=== PATIENT | male | born 1940 | race Caucasian/White ===

== ENCOUNTER → 2016-04-29 | Outpatient (CLI) | payer OTHER ==
[~2016-04-29] MED LIST: CHONCAP PO; LOSA1TAB38 PO; LPT40 PO; MULTCAP7 PO; PLV75 PO; RANO500T PO; VITA100C4 PO; VITACAP26 PO
--- NOTE | 2016-04-29 15:58 | DIAGNOSTIC IMAGING REPORT ---
WHOLE-BODY NUCLEAR BONE SCAN CLINICAL HISTORY: Prostate cancer. COMPARISON STUDY: No priors. TECHNIQUE: Three hours following the IV administration of 27.5 mCi of technetium 99m MDP, whole body nuclear bone scan was performed in the anterior and posterior projections. FINDINGS: There is no abnormal osseous tracer deposition identified typical in appearance for bony metastatic disease. Typically degenerative uptake is identified in the shoulders, sternoclavicular joints, left hip, and ankles. Typically degenerative activity is also seen throughout the spine. There is expected excreted activity within the renal collecting system and bladder. IMPRESSION: 1. There is no abnormal tracer deposition identified typical in appearance for bony metastatic disease. 2. Foci of typically degenerative activity as above. Electronically signed by: Jose Dawn M.D. 04/29/2016 3:57 PM Dictated Date/Time: 04/29/2016 3:54 PM
== END | disposition home or self-care (01) ==
LOC: C.NUCL 12:05
PROVIDERS: ATTEND Urology
DX: C61 Malignant neoplasm of prostate (principal)

== ENCOUNTER → 2016-07-22 | Outpatient (CLI) | payer OTHER ==
[2016-07-22 09:39] LABS: CHOLESTEROL/HDL RATIO 2.1
== END | disposition home or self-care (01) ==
LOC: C.LAB 06:58
PROVIDERS: ATTEND Internal Medicine Cardiovascular Disease
DX: C61 Malignant neoplasm of prostate (principal); I25.10 Atherosclerotic heart disease of native coronary artery without angina pectoris

== ENCOUNTER → 2017-02-09 | Outpatient (CLI) | payer OTHER ==
[2017-02-09 10:15] LABS: CHOLESTEROL/HDL RATIO 2.3; PROSTATE SPECIFIC ANTIGEN 4.53 ng/ml (0.000-4.000)
== END | disposition home or self-care (01) ==
LOC: C.LAB 07:28
PROVIDERS: ATTEND Internal Medicine Cardiovascular Disease
DX: N47.1 Phimosis (principal); E78.00 Pure hypercholesterolemia, unspecified

== ENCOUNTER → 2017-09-22 | Outpatient (CLI) | payer OTHER | END | disposition home or self-care (01) | LOC: C.LABSPEC 17:33 | PROVIDERS: ATTEND Urology | DX: N39.41 Urge incontinence (principal); R35.1 Nocturia ==

== ENCOUNTER 2018-05-28 06:24 | Inpatient (IN) ==
--- NOTE | 2018-05-19 12:50 | PAT Medication Instructions ---
Medication Instructions Date of Service May 19, 2018 Home Medications ascorbic acid (vitamin C) [Vitamin 1 g PO QAM aspirin [Aspirin Low Dose] 81 mg PO QAM atorvastatin [Lipitor] 40 mg PO QAM clopidogrel [Plavix] 75 mg PO QAM zeelyluu-lxfut-mxk 149-hyal ac 1 tab PO QAM ibuprofen [Advil] 200 mg PO BID losartan 100 mg PO QAM ranolazine [Ranexa] 500 mg PO BID I caps [id number]-S8-Y-V-trgvij-jesywqq-min 1 tab PO QAM vitamin E 400 unit PO QAM Continue as directed clopidogrel [Plavix] 75 mg PO QAM (in order for spinal anesthesia, need to stop Plavix 7 days prior to surgery- please check with bookkeeping machine operator to see if this is okay) ASK your surgeon for instructions ibuprofen [Advil] 200 mg PO BID STOP taking 2 weeks before surgery (or as soon as possible if surgery is within 2 weeks) xjfprpzm-rhsnh-qkn 149-hyal ac 1 tab PO QAM I caps nwmR-G1-P-X-gvwull-mamasvp-min 1 tab PO QAM vitamin E 400 unit PO QAM DO NOT take the morning of surgery ascorbic acid (vitamin C) [Vitamin 1 g PO QAM losartan 100 mg PO QAM Take morning of surgery With a small sip of water, OTHERWISE NOTHING TO EAT OR DRINK AFTER MIDNIGHT: aspirin [Aspirin Low Dose] 81 mg PO QAM atorvastatin [Lipitor] 40 mg PO QAM ranolazine [Ranexa] 500 mg PO BID Take evening before surgery ranolazine [Ranexa] 500 mg PO BID Other Notes If you have any questions please call us at [phone] or [phone] or [phone] or [phone]
--- NOTE | 2018-05-19 14:11 | Anesthesiology Consultation ---
Date of Service May 19, 2018 Assessment & Plan (1) Encounter for pre-operative examination: - Cardio= 02/19/19= "stable from a CV standpoint.. excellent control of his blood pressure and lipid values." Patient was seen at this time prior to CTR. In regards to CTR "acceptable risk for surgery." Surgery was done without issue. F/U 6 months recommended. - Patient advised that plavix needs to be held 7 days prior to surgery in order for spinal anesthesia (he states he was already given the okay for this per prescriber). Chart Review Chart Review: Acceptable Risk for Surgery and Patient seen in Pre Admission T esting Teaching & Discussion Pre-Anesthesia Teaching/Discussion Notes: Instructed NPO after midnight before surgery,except medications with 15 cc of water. Medication instructions provided according to the PAT guidelines. History Surgery Operation Date: 05/28/18 08:50 Proposed Procedures p Left Total Hip Arthroplasty - Ousmane Orr MD Height/Weight Height: 5 ft 10 in Weight: 104.1 kg Allergies Allergy/AdvReac Type Severity Reaction Status Date / Time No Known Allergies Allergy Unverified 05/17/18 08:15 Medications Home Medications Medication Instructions Recorded Confirmed Last Taken ascorbic acid (vitamin C) [Vitamin 1 g PO QAM 05/17/18 05/17/18 Unknown C] aspirin [Aspirin Low Dose] 81 mg PO QAM 05/17/18 05/17/18 Unknown atorvastatin [Lipitor] 40 mg PO QAM 05/17/18 05/17/18 Unknown clopidogrel [Plavix] 75 mg PO QAM 05/17/18 05/17/18 Unknown kaagdrya-lzfqv-zed 149-hyal ac 1 tab PO QAM 05/17/18 05/17/18 Unknown [Glucos Chond Cplx Advanced] ibuprofen [Advil] 200 mg PO BID 05/17/18 05/17/18 Unknown losartan 100 mg PO QAM 05/17/18 05/17/18 Unknown ranolazine [Ranexa] 500 mg PO BID 05/17/18 05/17/18 Unknown jkvG-T9-L-N-cdjbyq-zsxexja-min 1 tab PO QAM 05/17/18 05/17/18 Unknown [ICaps] vitamin E 400 unit PO QAM 05/17/18 05/17/18 Unknown Past Medical History Medical History CAD (coronary artery disease) SEBASTIAN X 1 TO LCX (2015) Cancer PROSTATE S/P PROSTATECTOMY Hypercholesteremia PER CARDIO Hypertension Obesity Osteoarthritis Spinal stenosis Past Family History Family History Father Family history of diabetes mellitus Past Surgical History Surgical History History of cardiac cath SEBASTIAN X 1 TO LCX (2015) History of cataract surgery History of colonoscopy History of excision of pilonidal cyst History of herniorrhaphy B/L INGUINAL History of prostatectomy Hx of carpal tunnel repair B/L; LEFT REVISION Past Anesthesia History No Family Hx of Anesthesia Complications and Other "Cursing" upon anesthesia emergence B/L inguinal hernia repair. History of PONV No Motion Sickness Screening History of Motion Sickness: No Social History Smoking Status: Former smoker Do You Dip or Chew Tobacco: No Smoking End Date: QUIT 1976 Hx Alcohol Use: Yes Alcohol type: beer, wine and hard liquor alcohol intake frequency: a few times a week Hx Substance Use: No Exercise / Class Metabolic Activity III < 4 Walking/Shop/Light housework Review of Systems Patient denies chest pain, shortness of breath, reflux, cough, wheezing, palpitations. Physical Exam Vital Signs VITALS BP 118/64 P 76 TEMP 97.7 SP02 95%RA RESP 18 PHYSICAL Full neck and c-spine range of motion. Full TMJ range of motion. TMD 3 finger breaths Mallampati Score 3 Dentition: intact, several crowns "all over"; implant on lower side Lungs: clear throughout to auscultation Cardiac: regular rate and rhythm, no murmurs noted Spine: normal Carotid arteries: negative bruit Extremities: no edema Small oral opening Testing Electrocardiogram Date: 05/19/18 Findings: + NSR @ (71) Chest X-Ray Date: 05/19/18 Mild left basilar atelectasis. Mild cardiomegaly. Otherwise negative study. Stress Test Date: 09/26/15 Type: exercise Abnormal stress ECHO/EKG for ischemia at 81% MPHR. Stress induced WMA in anteroseptal wall consistent with ischemia. There is apical moderate HK. ST depression in inferior leads. No chest pain. 7 METS. Mild cLVH. No significant valvular disease. Subsequent cardiac cath/SEBASTIAN to pLCX done 09/27/15 Cardiac Catheterization Date: 09/27/15 Dominant: Right Left Main (% Stenosis): Proximal (40) LAD (% Stenosis): Ostial (80), Mid (100) D1 (% Stenosis): Ostial (90) Circumflex (% Stenosis): Proximal (70) OM1 (% Stenosis): Normal RCA (% Stenosis): Normal R PDA (% Stenosis): Ostial (50), Mid (80) Resolute 3x12mm SEBASTIAN Proximal LCx* Laboratory Results 05/19/18 14:36 05/19/18 14:36 Blood Type O Positive 05/19/18 14:36 Antibody Screen NEGATIVE 05/19/18 14:36 PT 10.3 Seconds (9.0-12.0) 05/19/18 14:36 INR 1.0 (0.9-1.1) 05/19/18 14:36 APTT 27.0 Seconds (21.0-31.0) 05/19/18 14:36
--- NOTE | 2018-05-19 14:51 | XRay Report ---
XR chest Pre-admission PA/Lat CLINICAL HISTORY: pat preoperative evaluation COMPARISON STUDY: No previous studies for comparison. FINDINGS: Mild cardia megaly. Mild tortuosity thoracic aorta. Lungs are considered clear. Mild left b asilar atelectasis. IMPRESSION: Mild left basilar atelectasis. Mild cardiomegaly. Otherwise negative study. The above report was generated using voice recognition software. It may contain grammatical, syntax or spelling errors. Electronically signed by: Mehran Ruelas M.D. 05/19/2018 2:50 PM
[2018-05-19 15:19] LABS: Basophils # (auto) 0.01 K/uL (0-0.2); Basophils % (auto) 0.2 %; Eosinophils # (auto) 0.33 K/uL (0-0.5); Eosinophils % (auto) 5.9 %; Hematocrit (blood only) 40.7 % (42-52); Hemoglobin 13.8 g/dL (14.0-18.0); Immature Granulocytes # (auto) 0.02 K/uL (0.00-0.02); Immature Granulocytes % (auto) 0.4 %; Lymphocytes # (auto) 1.13 K/uL (1.2-3.4); Lymphocytes % (auto) 20.3 %; Mean Corpuscular Hgb Conc 33.9 g/dL (32-36); Mean Corpuscular Volume 94.7 fL (80-100); Mean Platelet Volume 9.5 fL (7.4-10.4); Monocytes % (auto) 12.6 %; Neutrophils # (auto) 3.37 K/uL (1.4-6.5); Neutrophils % (auto) 60.6 %; Platelet Count 162 K/uL (130-400); RDW Coefficient of Variation 14.3 % (11.5-14.5); White Blood Count 5.56 K/uL (4.8-10.8)
[2018-05-19 15:42] LABS: BUN Creatinine Ratio 17.9 (10-20); Calcium 9.1 mg/dl (8.5-10.1); Creatinine Clr Calc Pharmacy 60.8 ml/min; Est GFR (African American) 66.1; Potassium 4.4 mmol/L (3.5-5.1); Prothrombin Time 10.3 Seconds (9.0-12.0)
--- NOTE | 2018-05-19 17:38 | History and Physical Report ---
DATE OF ADMISSION: 05/28/2018 CHIEF COMPLAINT: Left hip pain. HISTORY OF PRESENT ILLNESS: A 77-year-old gentleman who lives at [facility] with his , who presents for treatment of his left hip. He has got a several year history of increasing left hip pain and discomfort and has gradually gotten worse, particularly the past year. The more he walks, the more he limps. He described buttock pain and groin pain. When he first gets up, he really limps pretty badly and then gets a little bit better. He has difficulty putting his shoes and socks on. His walking tolerance is limited. He now elected to proceed with surgical treatment. The patient does have history of some spinal stenosis as well. PAST MEDICAL HISTORY: Include, 1. Coronary artery disease, status post cardiac stent, placed by Dr. Karthik martinez in 2016 without any residual sequelae on Plavix. 2. Hypertension. 3. Arthritis. 4. Spinal stenosis. 5. Prostate cancer, status post resection with some residual disease. PREVIOUS SURGERIES: Include: 1. Pilonidal cyst excision. 2. Double hernia. 3. Prostate removal in 1995. 4. Heart stent in 2016. ALLERGIES: None. CURRENT MEDICINES: 1. Advil 400 mg twice a day. 2. Losartan 100 mg. 3. Lipitor 40 mg. 4. Plavix 75 mg a day. 5. Ranexa 500 mg twice a day. 6. Vitamin C. 7. Vitamin 8. Glucosamine/chondroitin. 9. Aspirin. 10. ICaps. SOCIAL HISTORY: A 77-year-old male. He lives at [facility] with his . She has some slight dementia. He does not smoke. FAMILY HISTORY: Noncontributory. REVIEW OF SYSTEMS: Significant for coronary artery disease, status post stent placement. Denies any current chest pain or shortness of breath. No evidence of DVT or PE. No bleeding problems. PHYSICAL EXAMINATION: GENERAL: Reveals a healthy pleasant elderly male. Looks to be in good health. HEENT: Benign. NECK: Supple. No lymphadenopathy. LUNGS: Clear to auscultation. HEART: Regular rate and rhythm. ABDOMEN: Soft, nontender, nondistended. EXTREMITIES: Grossly neurovascularly intact except as follows. Examination of left hip reveals the patient walks with a significantly antalgic gait. He is about 0.5 cm short on the left side compared to right. He has a pretty stiff hip with internal rotation to -10. External rotation at 30 degrees. Does cause pain with internal rotation. Negative straight leg raise. X-RAYS: X-rays of the left hip reviewed, shows advanced left hip DJD. He has got complete loss of his joint space. He has got cystic changes on both sides of the joint. He has got old flattening of the femoral head. X-rays of lumbar spine reveal some diffuse lumbar spondylosis throughout the entire spine. He has got fairly straight spine with syndesmophytes. ASSESSMENT: A 77-year-old male with history of coronary artery disease and stent placement with advanced left hip degenerative joint disease. He does have significant spinal stenosis which is pretty extensive. It does seem like his hip is a major debilitating part of his pain pattern. PLAN: We talked about treatment options. He would like to have his left hip replaced. I did tell him he is likely to have some residual symptoms from his spinal stenosis. He is fully aware of that. We will take him to the Operating Room and do a left total hip replacement. The risks and benefits of this procedure were explained to the patient including but not limited to DVT, PE, , infection, neurological injury, vascular injury, bleeding problem, pain, limited range of motion, stiffness, failure to relieve symptoms, incomplete relief of symptoms, need for further surgery in future, fracture, leg length inequality, nerve palsy, etc. The patient understands and desires to proceed. Informed consent was obtained. We did talk about stopping his Plavix a week beforehand. We will place him on his Plavix immediately postop. As far as discharge plans, he will likely go to the [facility]. We may have Dr. Angeles follow him in the hospital as well. DOUG
[~2018-05-28 06:24] MED LIST changes: +ACETAMINOPHEN 500 MG TAB PO SCH; +CEFAZOLIN 2000MG 2,000 MG/15 ML SYR IV SCH; -CHONCAP PO; +FAMOTIDINE 20 MG TAB PO SCH; +GABAPENTIN 300 MG PO SCH; -LOSA1TAB38 PO; -LPT40 PO; +LR 500ML BOLUS, THEN 15ML/HR IV SCH; +LR 60ML/HR IV SCH; +METOCLOPRAMIDE HCL 10 MG TABLET PO SCH; -MULTCAP7 PO; -PLV75 PO; -RANO500T PO; +TRANEXAMIC ACID 1,000 MG **IV Pre-op IV SCH; -VITA100C4 PO; -VITACAP26 PO
[2018-05-28] MEDS ORDERED: BUPIVACAINE 0.5 % 5 MG/1 ML PF 10ML VIAL ONE (06:40)
--- NOTE | 2018-05-28 06:49 | History & Physical Bridge Note ---
Date of Service May 28, 2018 History & Physical Bridge Note I have examined the patient, reviewed the History & Physical and in the interval since the performance of the History & Physical I have noted the following changes of clinical significance: no changes noted
[2018-05-28] MEDS ORDERED: fentaNYL citrate 100 MCG/2 ML VIAL ONE (08:14)
[2018-05-28] MEDS ORDERED: PROPOFOL IV EMULSION 10 MG/ML 20 ML VIAL IV ONE ×2 (08:14→11:18)
[2018-05-28] MEDS ORDERED: LIDOCAINE HCL 2% 2 ML VIAL/AMP(20MG/ML) INFIL ONE (08:14)
[2018-05-28] MEDS ORDERED: MoRPHine SULFATE PF 1 MG/ML 10 ML AMP/VIAL ONE (08:14)
[2018-05-28] MEDS ORDERED: MIDAZOLAM HCL 1 MG/ML 2ML VIAL ONE (08:14)
[2018-05-28] MEDS ORDERED: BACITRACIN INJ 50,000 UNIT VIAL ONE (08:45)
[2018-05-28] MEDS ORDERED: BUPIVACAINE/EPINEPHRINE 0.5% MPF 1:200,000 30 ML VIAL ONE (08:45)
[2018-05-28] MEDS ORDERED: ONDANSETRON INJ 2 MG/ML 2 ML VIAL ONE (09:14)
[2018-05-28] MEDS ORDERED: PHENYLEPHRINE 100MCG/ML 5ML SYR ONE (09:14)
[2018-05-28] MEDS ORDERED: VASOPRESSIN 20 UNIT/ML VIAL ONE (09:46)
--- NOTE | 2018-05-28 10:40 | Post Operative Brief Note ---
Immediate Post Op Note v1 Date of Surgery May 28, 2018 Pre & Post Diagnosis Operation Date: 05/28/18 08:50 Pre-Op Diagnosis: Advanced Left Hip Degenerative Joint Disease Post-Op Diagnosis: Advanced Left Hip Degenerative Joint Disease Procedure Operation Date: 05/28/18 08:50 Actual Procedures p Left Total Hip Arthroplasty(Left) - Ousmane Orr MD Surgeon Ousmane Orr MD [employer] Specialist Terra, PAC Estimated Blood Loss 300 Findings Consistent with Post-Op Diagnosis Fluids 1300 cc Specimens Left Femoral Head Drains Peña Catheter Anesthesia Type Spinal MAC Complications none Disposition Accompanied Patient To Recovery: Yes Disposition: Recovery Room
--- NOTE | 2018-05-28 11:10 | XRay Report ---
SINGLE VIEW PELVIS; SINGLE VIEW LEFT HIP CLINICAL HISTORY: Postoperative examination. FINDINGS: An AP portable view of the hips and pelvis with a crosstable lateral portable view of the l eft hip are obtained. A bipolar left hip arthroplasty is in near-anatomic alignment. At least 2 magalys ical lag screws transfix the acetabular cup. No acute fracture is identified. There are expected post operative changes overlying the left hip including skin clips, subcutaneous gas, and soft tissue swel ling. Arthritic change is noted in the right hip. There are surgical clips throughout the pelvis. A F oley catheter is in place. IMPRESSION: Expected postoperative findings status post left hip arthroplasty. No acute fracture is s een. Electronically signed by: Jose Dawn M.D. 05/28/2018 11:08 AM
[2018-05-28] MEDS ORDERED: PROMETHAZINE HCL 25 MG in SODIUM CHLORIDE 0.9% 50 ML IV PRN (11:13)
[2018-05-28] MEDS ORDERED: DiphenhydrAMINE HCL 50 MG/ML VIAL IV PRN (11:13)
[2018-05-28] MEDS ORDERED: NALOXONE HCL 0.08 MG in SYRINGE 1.8 ML IV PRN (11:13)
[2018-05-28] MEDS ORDERED: MoRPHine SULFATE PF 1 MG/ML 10 ML AMP/VIAL INT SPINAL ONE (11:13)
[2018-05-28] MEDS ORDERED: NALOXONE HCL 1 MG in SODIUM CHLORIDE 0.9% 1000ML 1,000 ML IV PRN (11:13)
[2018-05-28] MEDS ORDERED: NALBUPHINE HCL INJ 10 MG/ML AMP IV PRN (11:13)
[2018-05-28] MEDS ORDERED: NALOXONE HCL 0.4 MG/1 ML VIAL/CARP IV PRN ×2 (11:13→12:13)
[2018-05-28] MEDS ORDERED: LACTATED RINGER'S 500 ML IV PRN (11:13)
[2018-05-28] MEDS ORDERED: ePHEDrine sulfate 50 MG/ML AMP IV PRN (11:13)
[2018-05-28] MEDS ORDERED: ONDANSETRON INJ 2 MG/ML 2 ML VIAL IV PRN (11:13)
[2018-05-28] MEDS ORDERED: NO NARCOTICS OR SEDATIVES SCH (11:15)
[2018-05-28] MEDS ORDERED: SODIUM CHLORIDE 0.9% 1000ML 1,000 ML IV SCH (11:15)
[2018-05-28] MEDS ORDERED: DC INTRASPINAL MORPHINE SCH (11:15)
--- NOTE | 2018-05-28 11:15 | Anesthesiology Progress Note ---
Date of Service May 28, 2018 Anesthesia Post Procedure Vital Signs Vital Signs: Temp Pulse Pulse Resp BP Pulse Ox 05/28/18 11:10 69 20 120/60 96 05/28/18 11:00 66 19 111/65 95 05/28/18 10:50 73 19 114/68 98 05/28/18 10:41 36.1 C L 72 16 110/52 L 98 05/28/18 06:53 36.7 C 86 18 151/74 H 95 Pain Intensity Left Hip: Pain Intensity: 0 Notes Mental Status: alert / awake / arousable Patient Amnestic to Procedure: Yes Nausea / Vomiting: adequately controlled Pain: adequately controlled Airway Patency, RR, SpO2: stable & adequate BP & HR: stable & adequate Hydration State: stable & adequate Neuraxial Anesthesia: was administered and sensory block is resolving Anesthetic Complications: no major complications apparent
[2018-05-28] MEDS ORDERED: BISACODYL 10 MG SUPP PR PRN (12:13)
[2018-05-28] MEDS ORDERED: TAMSULOSIN HCL 0.4 MG CAP PO PRN (12:13)
[2018-05-28] MEDS ORDERED: MAGNESIUM HYDROXIDE SUSP 30 ML UDC PO PRN (12:13)
[2018-05-28] MEDS ORDERED: METOCLOPRAMIDE HCL INJ 5 MG/ML 2 ML VIAL IV PRN (12:13)
[2018-05-28] MEDS ORDERED: ALUMINUM/MAGNESIUM SUSP 30 ML UDC PO PRN (12:13)
[2018-05-28] MEDS: ACETAMINOPHEN 500 MG TAB PO SCH ×2 (14:10→21:41)
[2018-05-28] MEDS: KETOROLAC TROMETHAMINE 15 MG/ML VIAL IV SCH ×2 (14:10→21:40)
[2018-05-28] MEDS: SODIUM CHLORIDE 0.9% 1000ML 1,000 ML IV SCH ×2 (14:14→22:15)
--- NOTE | 2018-05-28 14:28 | Operative Report ---
DATE OF OPERATION: 05/28/2018 SURGEON: Ousmane Orr MD [employer] RANGER: HOANG Kauffman PREOPERATIVE DIAGNOSIS: Left hip degenerative joint disease. POSTOPERATIVE DIAGNOSIS: Left hip degenerative joint disease. PROCEDURE PERFORMED: Left uncemented ceramic on highly cross-linked polyethylene total hip arthroplasty. COMPLICATIONS: None. ESTIMATED BLOOD LOSS: 300 mL. FLUID REPLACEMENT: 1300 mL crystalloid fluid replacement. ANESTHESIA: Spinal. DRAINS: None. SPECIMENS: Left femoral head sent for pathology. OPERATIVE INDICATIONS: The patient is a 77-year-old gentleman who has had a several-year history of gradually increasing left hip pain and discomfort. He describes it gotten significantly worse over the past year to the point where he is limping all the time. He had failed conservative treatment. He elected to proceed with total hip arthroplasty. OPERATIVE FINDINGS: Operative findings revealed advanced left hip DJD. He had fairly extensive grade 4 changes in the femoral head and acetabulum. Pretty significant anterior osteophytes which caused an external rotation contracture of his hip. OPERATIVE IMPLANTS: Operative implants consisted of: 1. Biomet G7 size 54 mm acetabular shell. 2. 6.5 cancellous acetabular screws, 1 at 35 mm in length and 1 at 25 mm in length. 3. An apex hole eliminator. 4. Highly cross-linked polyethylene liner with 54 mm outer diameter, 36 mm inner diameter with a tang placed inferior and posterior. 5. DePuy Corail size 13 KLA femoral stem. 6. A +5/36 mm ceramic articular ball. OPERATIVE PROCEDURE: The patient was taken to the operating room, identified and placed on operative table in supine position. All contact areas were appropriately padded. IV antibiotics were provided by anesthesia team. A spinal anesthetic had been implemented in the holding area. Peña catheter was placed in sterile fashion. The patient was then placed in the right lateral decubitus position. An axillary roll was placed. Stlberg hip positioner was used for positioning. All contact areas were meticulously padded. Left hip and leg were then prepped and draped in usual sterile fashion. A posterolateral approach of the left hip was then performed through a curvilinear incision centered over the greater trochanter. Sharp dissection was carried through subcutaneous tissue down to the level of the IT band and gluteal fascia. The IT band and gluteal fascia was incised longitudinally in line with skin incision. The underlying greater trochanteric bursa was excised. The piriformis and external rotators were tagged and taken off the posterior aspect of the hip joint capsule. Great care was taken throughout the procedure to protect the sciatic nerve at all times. Posterior capsulotomy was then performed leaving a flap for later repair. Hip was internally rotated and dislocated. Femoral neck osteotomy cut was made with the final cut about 5 mm above the lesser trochanter. Femoral head was removed and sent for pathology. The femur was retracted anteriorly. Attention was then drawn to the acetabulum. The acetabular labrum was excised. The pulvinar fat was excised. He did have quite a bit of fat in the posterior aspect of his hip. Sequential reaming of the acetabulum was then performed beginning with a size 49 and progressing up to a 53 reamer. A 54 mm Biomet G7 acetabular shell was then placed in about 40 degrees of lateral opening and 20 degrees of anteversion. It was fixed with two 6.5 cancellous acetabular screws. Some anterior osteophytes removed. A trial liner was placed. Attention was then drawn to the femur. The proximal femur was entered with a cookie cutter followed by canal finder. I broached beginning with a size 8 and progressing up to 13. We got excellent fit at 13. I then trialed the hip. The +5 articular ball provided full stability and full extension and external rotation, flexion to 90 degrees, internal rotation to about [address] a tang inferior and posterior to maximize stability in flexion. Attention was then drawn toward placement of the permanent components. All trial components were removed. An apex hole eliminator was placed. Highly cross-linked polyethylene liner with a tang placed inferior and posterior was placed. A Corail size 13 KLA femoral stem was impacted in position. A +5/36 mm ceramic articular ball was placed. Hip was located and once again found to be stable. Attention was then drawn toward closing. The posterior capsule and external rotators were repaired through drill holes in the posterior trochanter with #2 Ti-Cron suture. The IT band and gluteal fascia were then closed in #1 PDS suture in running fashion. The subcutaneous tissue was then closed in 2 layers with the deep layer #1 Vicryl suture and subcutaneous tissues with 2-0 Dexon suture in a buried interrupted fashion. The skin was closed with skin mago. Leg was then cleaned, dried and a sterile dressing of Xeroform, 4 x 4s, sterile ABD pad and foam tape was applied. The patient then transferred to the recovery room in stable condition. The patient tolerated the procedure well with no complications. All needle and sponge counts were correct at the end of the operation. I attest to the content of the Intraoperative Record and any orders documented therein. Any exception s are noted below.
--- NOTE | 2018-05-28 16:02 | Progress Note ---
DATE: 05/28/2018 SUBJECTIVE: A 77-year-old gentleman postop from a left hip replacement. He is doing well. Not had any pain yet. No chest pain or shortness of breath. Not feeling dizzy or lightheaded. OBJECTIVE: VITAL SIGNS: Temperature is 36.6. Vital signs stable. GENERAL: Physical examination shows a pleasant elderly male. He is sitting up in bed, looks awake, alert and appropriate. He looks comfortable. LUNGS: Clear to auscultation. HEART: Regular rate and rhythm. ABDOMEN: Soft, nontender, nondistended. EXTREMITIES: Grossly neurovascularly intact except as follows: Examination of the left leg reveals the leg to be well aligned. Dressing is clean, dry and intact. Thigh is soft and supple. His hip is located. He is neurologically intact. He can dorsiflex and plantarflex his foot appropriately. X-RAYS: X-rays of the left hip from recovery room reviewed. It shows left cemented posterior stabilized total knee arthroplasty. Components looked to be in good position. No signs of problems. ASSESSMENT: A 77-year-old gentleman postop from a left hip replacement, doing well. His pain is controlled. His hip is located. He is neurologically intact. PLAN: 1. DVT prophylaxis including thigh-high TEDs, SCDs, and we will put him back on his Plavix. He is also taking a baby aspirin once a day. 2. PT/OT. He can weightbear as tolerated. Left total hip protocol. 3. Pain control, doing well with current pain regimen. 4. IV antibiotics x24 hours. 5. Disposition: He is planning to be discharged to home and do some home health once adequately recovered.
[2018-05-28] MEDS: FERROUS GLUCONATE 324 MG TAB PO SCH (17:22)
[2018-05-28] MEDS: CEFAZOLIN 2000MG 2,000 MG/15 ML SYR IV SCH (17:22)
[2018-05-28] MEDS: ASCORBIC ACID 500 MG TAB PO SCH (17:22)
[2018-05-28] MEDS ORDERED: TRANEXAMIC ACID 1,000 MG in 0.9 % SODIUM CHLORIDE 100 ML IV SCH (17:30)
[2018-05-28] MEDS: SENNA 8.6 MG TAB PO SCH (21:41)
[2018-05-28] MEDS: RANOLAZINE 500 MG ER TAB PO SCH (21:41)
[2018-05-28] MEDS: DOCUSATE SODIUM 100 MG CAP PO SCH (21:41)
[2018-05-29] MEDS: SODIUM CHLORIDE 0.9% 1000ML 1,000 ML IV SCH (00:06)
[2018-05-29] MEDS: KETOROLAC TROMETHAMINE 15 MG/ML VIAL IV SCH ×4 (01:55→20:18)
[2018-05-29] MEDS: CEFAZOLIN 2000MG 2,000 MG/15 ML SYR IV SCH (01:55)
[2018-05-29] MEDS ORDERED: HYDROmorphone INJ 0.5 MG/0.5 ML SYR IV PRN (05:14)
[2018-05-29] MEDS ORDERED: ONDANSETRON INJ 2 MG/ML 2 ML VIAL IV PRN (05:14)
[2018-05-29] MEDS ORDERED: NALOXONE HCL 0.4 MG/1 ML VIAL/CARP IV PRN (05:14)
[2018-05-29] MEDS ORDERED: TRAMADOL HCL 50 MG TABLET PO PRN (05:14)
[2018-05-29] MEDS: ACETAMINOPHEN 500 MG TAB PO SCH ×3 (06:26→20:17)
[2018-05-29 06:35] LABS: Basophils # (auto) 0.02 K/uL (0-0.2); Basophils % (auto) 0.3 %; Eosinophils # (auto) 0.26 K/uL (0-0.5); Eosinophils % (auto) 4.1 %; Hematocrit (blood only) 35.2 % (42-52); Hemoglobin 12.1 g/dL (14.0-18.0); Immature Granulocytes # (auto) 0.01 K/uL (0.00-0.02); Immature Granulocytes % (auto) 0.2 %; Lymphocytes # (auto) 0.89 K/uL (1.2-3.4); Lymphocytes % (auto) 14.1 %; Mean Corpuscular Hgb Conc 34.4 g/dL (32-36); Mean Corpuscular Volume 94.4 fL (80-100); Mean Platelet Volume 9.5 fL (7.4-10.4); Monocytes # (auto) 0.59 K/uL (0.11-0.59); Monocytes % (auto) 9.3 %; Neutrophils # (auto) 4.55 K/uL (1.4-6.5); Platelet Count 118 K/uL (130-400); RDW Coefficient of Variation 13.9 % (11.5-14.5); Red Blood Count 3.73 M/uL (4.7-6.1); White Blood Count 6.32 K/uL (4.8-10.8)
[2018-05-29 06:37] LABS: BUN Creatinine Ratio 17.2 (10-20); Creatinine Clr Calc Pharmacy 57.1 ml/min; Est GFR (African American) 61.7; Est GFR (Non-African American) 53.3; Potassium 4.5 mmol/L (3.5-5.1)
[2018-05-29] MEDS ORDERED: NON-FORMULARY MEDICATION (Ascorbic Acid (Vitamin C) [Vitamin C] 1 GM) PO SCH (09:00)
[2018-05-29] MEDS: CLOPIDOGREL BISULFATE 75 MG TAB PO SCH (09:01)
[2018-05-29] MEDS: DOCUSATE SODIUM 100 MG CAP PO SCH ×2 (09:01→20:16)
[2018-05-29] MEDS: TOCOPHERYL, DL-ALPHA 400 UNITS CAP PO SCH (09:01)
[2018-05-29] MEDS: ASCORBIC ACID 500 MG TAB PO SCH ×2 (09:01→18:07)
[2018-05-29] MEDS: FERROUS GLUCONATE 324 MG TAB PO SCH ×2 (09:03→18:07)
[2018-05-29] MEDS: ASPIRIN 81 MG ECTAB PO SCH (09:03)
[2018-05-29] MEDS: MULTIVITAMIN TAB PO SCH (09:03)
[2018-05-29] MEDS: ATORVASTATIN 40 MG TAB PO SCH (09:03)
[2018-05-29] MEDS: RANOLAZINE 500 MG ER TAB PO SCH ×2 (09:04→20:17)
[2018-05-29] MEDS: LOSARTAN POTASSIUM 50 MG TAB PO SCH (09:04)
--- NOTE | 2018-05-29 09:13 | Progress Note ---
DATE: 05/29/2018 SUBJECTIVE: A 77-year-old gentleman postop day 1 from a left hip replacement. He is doing pretty well. Really not much pain at while lying in bed. Some pain with walking and trying to lift his leg. No chest pain or shortness of breath. Not feeling dizzy or lightheaded. OBJECTIVE: VITAL SIGNS: Temperature 37.0. Vital signs stable. GENERAL: Physical examination shows a pleasant elderly male. He is lying in bed, looks pretty comfortable. EXTREMITIES: Examination of the left hip and leg reveals the leg lengths to be equal. Dressing is clean, dry and intact. Thigh is soft and supple. He is neurologically intact. LABORATORY DATA: Hemoglobin is 12.1. Hematocrit 35.2. Electrolytes are stable. ASSESSMENT: A 77-year-old gentleman postop day 1 from a left hip replacement, doing well. His pain is controlled. Hip is located. He is neurologically intact. PLAN: 1. DVT prophylaxis including thigh-high TEDs, SCDs, and he is back on baby aspirin a day as well as his Plavix. 2. PT/OT. Weight bear as tolerated. Left total hip protocol. 3. Pain control, doing pretty well with current pain regimen. 4. Disposition: He is planning to be discharged to home with some home health once adequately recovered.
--- NOTE | 2018-05-29 09:52 | Anesthesiology Progress Note ---
Date of Service May 29, 2018 Anesthesia Post Procedure Vital Signs Vital Signs: Temp Pulse Pulse Resp BP Pulse Ox Pulse Ox 05/29/18 07:50 37.0 C 66 18 103/57 L 93 05/29/18 04:19 16 98 05/29/18 03:11 36.9 C 69 18 103/63 92 05/29/18 02:00 17 97 05/29/18 01:00 16 94 05/29/18 00:00 18 98 05/28/18 23:33 36.5 C 69 16 128/66 92 05/28/18 23:00 18 93 05/28/18 22:35 94 05/28/18 22:00 18 100 05/28/18 21:00 14 99 05/28/18 20:00 16 100 05/28/18 19:30 36.5 C 68 16 144/80 H 100 05/28/18 19:00 18 100 05/28/18 18:00 14 96 05/28/18 17:00 16 100 05/28/18 16:00 16 99 05/28/18 15:15 99 05/28/18 15:00 18 99 05/28/18 14:55 36.3 C L 65 18 147/75 H 99 05/28/18 14:06 36.4 C L 81 18 149/79 H 97 05/28/18 14:00 18 98 05/28/18 13:00 18 97 05/28/18 12:56 36.4 C L 61 18 149/83 H 97 05/28/18 12:30 36.4 C L 62 16 149/79 H 97 05/28/18 12:00 16 97 97 05/28/18 11:30 67 21 125/67 95 05/28/18 11:20 36.3 C L 64 18 132/63 95 05/28/18 11:10 69 20 120/60 96 05/28/18 11:00 66 19 111/65 95 05/28/18 10:50 73 19 114/68 98 05/28/18 10:41 36.1 C L 72 16 110/52 L 98 Pain Intensity Left Hip: Pain Intensity: 0 Notes Mental Status: alert / awake / arousable and participated in evaluation Patient Amnestic to Procedure: Yes Nausea / Vomiting: adequately controlled Pain: adequately controlled Airway Patency, RR, SpO2: stable & adequate BP & HR: stable & adequate Hydration State: stable & adequate Neuraxial Anesthesia: was administered and sensory block resolved Anesthetic Complications: no major complications apparent and Pt Satisfied with anesthetic care
[2018-05-29] MEDS: SENNA 8.6 MG TAB PO SCH (20:18)
[2018-05-30] MEDS: KETOROLAC TROMETHAMINE 15 MG/ML VIAL IV SCH ×2 (02:05→08:38)
[2018-05-30] MEDS: ACETAMINOPHEN 500 MG TAB PO SCH (05:57)
[2018-05-30] MEDS: LOSARTAN POTASSIUM 50 MG TAB PO SCH (08:37)
[2018-05-30] MEDS: ASCORBIC ACID 500 MG TAB PO SCH (08:37)
[2018-05-30] MEDS: ASPIRIN 81 MG ECTAB PO SCH (08:37)
[2018-05-30] MEDS: TOCOPHERYL, DL-ALPHA 400 UNITS CAP PO SCH (08:37)
[2018-05-30] MEDS: RANOLAZINE 500 MG ER TAB PO SCH (08:37)
[2018-05-30] MEDS: CLOPIDOGREL BISULFATE 75 MG TAB PO SCH (08:38)
[2018-05-30] MEDS: DOCUSATE SODIUM 100 MG CAP PO SCH (08:38)
[2018-05-30] MEDS: ATORVASTATIN 40 MG TAB PO SCH (08:38)
[2018-05-30] MEDS: MULTIVITAMIN TAB PO SCH (08:38)
[2018-05-30] MEDS: FERROUS GLUCONATE 324 MG TAB PO SCH (08:38)
--- NOTE | 2018-05-30 13:12 | Progress Note ---
DATE: 05/30/2018 SUBJECTIVE: A 77-year-old gentleman postop day 2 from a left hip replacement. He is doing well. Getting around well. No chest pain or shortness of breath. Feels ready to go home. OBJECTIVE: VITAL SIGNS: Temperature 37.4. Vital signs stable. PHYSICAL EXAMINATION: GENERAL: Shows a pleasant elderly male. He is sitting up in his bedside chair eating breakfast. He looks comfortable. EXTREMITIES: Examination of left leg reveals the dressing to be clean, dry and intact. Thigh is soft and supple. Hip is located. He is neurologically intact. ASSESSMENT: A 77-year-old gentleman postoperative day 2 from left hip replacement, doing well. Pain is controlled. PLAN: 1. DVT prophylaxis including thigh-high TEDs, SCDs, and he is back on his Plavix as well as one baby aspirin a day. 2. PT/OT. Weight bear as tolerated. Left total hip protocol. 3. Pain control, doing well with current pain regimen. 4. Disposition: Plan to discharge to home with some home health later today.
--- NOTE | 2018-05-31 17:11 | Discharge Summary ---
ADMITTING PHYSICIAN AND SURGEON: Dr. Ousmane Orr. ADMITTING DIAGNOSIS: Left hip degenerative joint disease. SURGERY PERFORMED: Left total hip arthroplasty. SECONDARY DIAGNOSES: Coronary artery disease, hypertension, arthritis, spinal stenosis, prostate cancer. CONSULTS: None obtained. HISTORY AND PHYSICAL EXAMINATION: Well documented in the patient's chart. HOSPITAL COURSE: The patient was admitted on 05/28/2018 underwent total hip arthroplasty, tolerated the procedure well. There were no complications. He was transferred to the PACU postoperatively and later to the orthopedic floor for further care. He was given Ancef for antibiotic prophylaxis, COLLIN stockings, SCDs, aspirin and Plavix for DVT prophylaxis. Hemoglobin, hematocrit and vital signs were monitored during his hospital stay and remained stable. He did not require blood transfusions. There were no complications. By postoperative day 2 he was tolerating a regular diet, pain was controlled with oral pain medicine. He was participating in physical therapy. Postop day 2 he was discharged home, set up with home health services, given printed discharge instructions including new prescriptions for extra strength Tylenol and tramadol. Continue his home medicines. Continue physical therapies, weightbearing as tolerated, COLLIN stockings, total hip precautions. Follow up in approximately 2 weeks postoperatively or sooner if any problems or concerns.
== END 2018-05-30 11:11 | disposition home health service (06) | DRG 470 ==
LOC: ASU 06:24 → 3E 10:43

== ENCOUNTER 2021-01-05 07:52 | Inpatient (IN) ==
[2021-01-05] MEDS ORDERED: ALBUTEROL 0.083% NEBU SOLN 3 ML VIAL NEB STA (07:57)
--- NOTE | 2021-01-05 08:02 | Emergency Department Note ---
Impression & Plan NSTEMI (non-ST elevated myocardial infarction), CAD (coronary artery disease), Shortness of breath ED Provider Note NAME: ZENAIDA LEZAMA AGE: 80 SEX: M : 1940 ARRIVES VIA: Ambulance INFORMANT: Patient ED PROVIDER(S): Papi Serrano DO CHIEF COMPLAINT: Shortness of breath HPI: Patient is an 80-year-old male who presents ER for shortness of breath. This has been present for the past 5 weeks. Significant worsened over the past 24hours. Patient denies any headache or change in vision. He admits to chest tightness which has been present since 4 AM. Denies any belly pain, nausea, vomiting, or diarrhea. No dysuria, urgency, or frequency. The chest tightness does not radiate anywhere else. Patient does have a history of CAD and hypertension with his last stent in 2015 and left circumflex. ROS: See above HPI for pertinent positives & negatives. A total of 10 systems reviewed and were otherwise negative. PAST MEDICAL HISTORY:See Below PAST SURGICAL HISTORY:See Below FAMILY HISTORY:See Below SOCIAL HISTORY:See Below HOME MEDICATIONS:See Below ALLERGIES:See Below VITALS:See Below PHYSICAL EXAMINATION: GENERAL: Sitting up in bed, alert, well appearing, well nourished, no distress, non-toxic EYE EXAM: normal conjunctiva. OROPHARYNX: no exudate, no erythema, lips, buccal mucosa, and tongue normal and mucous membranes are moist NECK: supple, no nuchal rigidity, no adenopathy, non-tender LUNGS: Diffuse wheezing bilaterally. Normal chest wall mechanics HEART: no murmurs, S1 normal and S2 normal ABDOMEN: abdomen soft, non-tender, normo-active bowel sounds, no masses, no rebound or guarding. UPPER EXTREMITIES: upper extremities are grossly normal. LOWER EXTREMITIES: No pitting edema. NEURO EXAM: Normal sensorium, cranial nerves II-XII grossly intact, normal speech, no gross weakness of arms, no gross weakness of legs. MEDICAL DECISION MAKING: Patient is an 80-year-old male who presents ER for above-stated complaint. IV was established blood work was obtained. Vitals show that he was slightly hypo xic. He was tachycardic and had diffuse wheezing. He is complaining of shortness of breath which progressed over several weeks as well as chest pain after shortness of breath worsened last night around 4 AM. IV was established blood work was obtained. With the diffuse wheezing he was given a neb treatment and his chest pain abated and shortness of breath improved significantly. He was consequently given steroids. He only smoked for 2 years and there is no diagnosis of COPD but with the wheezing and the improvement but this was reasonable at the time. Chest x-ray resulted and showed cephalization. Labs show no significant leukocytosis or anemia. BMP was unremarkable. Troponin was positive at 1.8. Lipase was normal. Covid was negative. EKG did show new septal Q waves with some ST wave changes. This is new in comparison to the previous. He was given aspirin. Initially concerned that this was a PE with the worsening shortness of breath over a protracted period time. Discussed with Dr. Garcia he agreed with a heparin drip and bolus after we were able to review outpatient IR procedure for a rectus sheath hematoma. He reviewed the EKGs and as the patient was pain-free recommended medical management. If the pain returns will need to go to the [facility] as long as CT angio was negative. Patient was given heparin drip and bolus. Was taken to CT and CT angios showed no PEs. Patient was discussed with initially the [facility] team per care managers. [facility] Nursing notes reviewed. Limited review of prior medical records performed Vital Signs: reviewed and remarkable for no significant abnormalities Differential diagnosis: Reactive airway disease, pneumonia, pneumothorax, COPD, CHF, infections, cardiac ischemia, pulmonary embolism, musculoskeletal, gastrointestinal, as well as other pathologies. ER treatment provided: See below Diagnostics interpreted by me: ECG: Sinus tachycardia rate of 121 Poor baseline PVCs Septal Q waves QTC [address] wave changes in the septal leads EKG #2 Sinus rhythm rate of 115 Normal axis Poor baseline Septal Q waves QTC 439 T wave flattening in the lateral leads Nonspecific ST changes in the high lateral leads Cardiac Monitoring: An order was placed for continuous cardiac monitoring. The m onitor shows a rate of 110 with sinus rhythm. Laboratory studies: As stated above and show below. Imaging studies: Chest x-ray shows cephalization and pleural effusion CT angio shows no PEs but cephalization with pleural effusions Consultation(s): Discussed with Jatin from [facility] service Discussed with Shlomo Calvo from not any cardiology as discussed above Discussed with Bucky Silva for admission from not any hospital service Procedures: none Critical Care: I have personally spent 45 minutes of critical care time in the direct management of this patient. This includes bedside care, interpretation of diagnostic studies, and testing, discussion with consultants, patient, and family members, and other required patient management activities. This 45 minutes is in excess of all separately billable procedures. Past Med/Surg History Medical History (Updated 01/05/21 @ 13:49 by Papi Serrano DO) CAD (coronary artery disease) SEBASTIAN X 1 TO LCX (2015) Cancer PROSTATE S/P PROSTATECTOMY History of heart attack "DIDN'T KNOW IT" - WAS TOLD HAD IN PAST Hypercholesteremia PER CARDIO Hypertension Obesity Osteoarthritis Rectus sheath hematoma Spinal stenosis Surgical History History of cardiac cath SEBASTIAN X 1 TO LCX (2015) History of cataract surgery R&L History of colonoscopy History of excision of pilonidal cyst History of herniorrhaphy B/L INGUINAL History of prostatectomy History of total left hip replacement Hx of carpal tunnel repair B/L; LEFT REVISION Family History Father Family history of diabetes mellitus Social History Smoking Status: Former smoker Second Hand Exposure: No; Do You Dip or Chew Tobacco: No; Tobacco Cessation Education Requested by Patient: No Hx Alcohol Use: Yes Alcohol type: other Hx Substance Use: No Preferred Language: Lao Communication Ability: Effective Visual Impairment: No Limitations Drug Counselor Required: No Beliefs That Will Affect Care: None marital status: Current Living Situation: Alone and Personal Care Facility Current Living Situation Comment: lives at [facility] Other Information That Helps Us Care for You: Yes ( has alzheimer's disease and in skilled facility) Feels Safe at Home: Yes Safety Concerns: Feels Safe At This Time Assistive Devices: Glasses Allergies Allergies Allergy/AdvReac Type Severity Reaction Status Date / Time No Known Drug Allergies Allergy Verified 12/19/20 10:40 Home Meds Home Medications Medication Instructions Recorded Confirmed [id number] 1 tab PO QAM 05/17/18 01/05/21 3,300 unit-5 mg-200mg-75 unit tablet ER (ICaps) [id number]-[id number]-hyal 4 tab PO QAM tab 09/04/20 01/05/21 750 mg-100 mg-125 mg-1.65 mg tablet (Glucosamine Chondroit Complx Advan) atorvastatin 40 mg tablet (Lipitor) 40 mg PO QAM 12/11/20 01/05/21 aspirin 81 mg tablet,delayed 81 mg PO DAILY 01/05/21 01/05/21 release (Aspirin Low Dose) clopidogrel 75 mg tablet 75 mg PO DAILY 01/05/21 01/05/21 ibuprofen 200 mg tablet (Advil) 200 mg PO Q6H PRN 01/05/21 01/05/21 Previous Rx's Medication Instructions Recorded losartan 50 mg tablet 50 mg PO QAM #90 tab 01/31/20 ranolazine 500 mg tablet,extended 500 mg PO BID #180 tab 01/31/20 release,12 hr (Ranexa) Results & Data (ED) Vital Signs Vital Signs - 24 hr 01/05/21 07:56 01/05/21 08:00 01/05/21 08:07 Temperature 36.7 C Temperature Source Oral Pulse Rate 123 H 121 H 119 H Pulse Rate [Left] Pulse Rate from SpO2 Sensor 123 H 121 H Respiratory Rate 20 Respiratory Effort / Characteristics Blood Pressure 122/88 Blood Pressure Mean 99 Pulse Oximetry 92 97 91 Oxygen Delivery Method Room Air Nasal Cannula Room Air Oxygen Flow Rate 4 Sepsis Recent Fever Within 48 Hours No Sepsis New/Unexplained Change in Mental Status No Sepsis Action Taken by Nursing No Action Required Oxygen Flow Rate - Titration 4 Pulse Oximetry Post Tiitration 97 01/05/21 08:10 01/05/21 08:13 01/05/21 08:20 Temperature Temperature Source Pulse Rate 119 H 115 H Pulse Rate [Left] 117 H Pulse Rate from SpO2 Sensor 119 H 115 H Respiratory Rate 18 Respiratory Effort / Characteristics Non-Labored Spontaneous Blood Pressure Blood Pressure Mean Pulse Oximetry 97 97 98 Oxygen Delivery Method Nasal Cannula Nasal Cannula Nasal Cannula Oxygen Flow Rate 4 4 4 Sepsis Recent Fever Within 48 Hours Sepsis New/Unexplained Change in Mental Status Sepsis Action Taken by Nursing Oxygen Flow Rate - Titration Pulse Oximetry Post Tiitration 01/05/21 08:30 01/05/21 08:40 01/05/21 08:50 Temperature Temperature Source Pulse Rate 111 H 113 H 114 H Pulse Rate [Left] Pulse Rate from SpO2 Sensor 112 H 115 H Respiratory Rate Respiratory Effort / Characteristics Blood Pressure 120/93 120/93 Blood Pressure Mean 102 102 Pulse Oximetry 99 99 Oxygen Delivery Method Nasal Cannula Nasal Cannula Oxygen Flow Rate 4 4 Sepsis Recent Fever Within 48 Hours Sepsis New/Unexplained Change in Mental Status Sepsis Action Taken by Nursing Oxygen Flow Rate - Titration Pulse Oximetry Post Tiitration 01/05/21 09:00 01/05/21 09:10 01/05/21 09:36 Temperature Temperature Source Pulse Rate 121 H 121 H Pulse Rate [Left] Pulse Rate from SpO2 Sensor 124 H 130 H Respiratory Rate Respiratory Effort / Characteristics Blood Pressure Blood Pressure Mean Pulse Oximetry 100 99 Oxygen Delivery Method Nasal Cannula Nasal Cannula Oxygen Flow Rate 4 4 Sepsis Recent Fever Within 48 Hours Sepsis New/Unexplained Change in Mental Status Sepsis Action Taken by Nursing Oxygen Flow Rate - Titration Pulse Oximetry Post Tiitration 01/05/21 09:40 01/05/21 09:50 01/05/21 10:00 Temperature Temperature Source Pulse Rate 131 H 125 H Pulse Rate [Left] Pulse Rate from SpO2 Sensor 131 H 126 H 127 H Respiratory Rate Respiratory Effort / Characteristics Blood Pressure 135/90 Blood Pressure Mean 105 Pulse Oximetry 97 97 97 Oxygen Delivery Method Nasal Cannula Nasal Cannula Nasal Cannula Oxygen Flow Rate 4 4 4 Sepsis Recent Fever Within 48 Hours Sepsis New/Unexplained Change in Mental Status Sepsis Action Taken by Nursing Oxygen Flow Rate - Titration Pulse Oximetry Post Tiitration 01/05/21 10:10 01/05/21 10:18 01/05/21 10:20 Temperature Temperature Source Pulse Rate 123 H 123 H 121 H Pulse Rate [Left] Pulse Rate from SpO2 Sensor 125 H Respiratory Rate 21 Respiratory Effort / Characteristics Blood Pressure 107/88 107/88 Blood Pressure Mean 94 Pulse Oximetry 98 Oxygen Delivery Method Nasal Cannula Oxygen Flow Rate 4 Sepsis Recent Fever Within 48 Hours Sepsis New/Unexplained Change in Mental Status Sepsis Action Taken by Nursing Oxygen Flow Rate - Titration Pulse Oximetry Post Tiitration Laboratory Data Result diagrams: 01/05/21 08:10 01/05/21 08:10 Lab Results 01/05/21 01/05/21 01/05/21 Range/Units 08:10 08:10 08:10 WBC 7.22 (4.8-10.8) K/uL RBC 3.84 L (4.7-6.1) M/uL Hgb 12.2 L (14.0-18.0) g/dL Hct 37.4 L (42-52) % MCV 97.4 (80-100) fL MCH 31.8 (25-34) pg MCHC 32.6 (32-36) g/dL RDW Std Deviation 56.6 H (36.4-46.3) fL RDW Coeff of Tommy 15.8 H (11.5-14.5) % Plt Count 212 (130-400) K/uL MPV 9.7 (7.4-10.4) fL Immature Gran % (Auto) 0.1 % Neut % (Auto) 68.3 % Lymph % (Auto) 17.6 % [place] % (Auto) 6.9 % Eos % (Auto) 6.8 % Baso % (Auto) 0.3 % Neut # (Auto) 4.93 (1.4-6.5) K/uL Lymph # (Auto) 1.27 (1.2-3.4) K/uL [place] # (Auto) 0.50 (0.11-0.59) K/uL Eos # (Auto) 0.49 (0-0.5) K/uL Baso # (Auto) 0.02 (0-0.2) K/uL Immature Gran # (Auto) 0.01 (0.00-0.02) K/uL D-Dimer 2760 H* (0-500) ug/L FEU Sodium 140 (136-145) mmol/L Potassium 3.9 (3.5-5.1) mmol/L Chloride 107 (98-107) mmol/L Carbon Dioxide 22 (21-32) mmol/L Anion Gap 11.0 (3-11) BUN 14 (7-18) mg/dl Creatinine 1.21 (0.6-1.4) mg/dl Est Cr Clr Drug Dosing 64.2 ml/min Est GFR ( Amer) 64.7 ml/min Est GFR (Non-Af Amer) 55.8 ml/min BUN/Creatinine Ratio 11.2 (10-20) Glucose 157 H (70-99) mg/dl Calcium 8.6 (8.5-10.1) mg/dl Magnesium (1.8-2.4) mg/dl Total Bilirubin 0.8 (0.2-1) mg/dl AST 23 (15-37) U/L ALT 19 (12-78) U/L Alkaline Phosphatase 124 H (45-117) U/L Troponin I 1.850 H* (0-0.045) ng/ml Total Protein 6.8 (6.4-8.2) gm/dl Albumin 3.2 L (3.4-5.0) gm/dl Globulin 3.6 (2.5-4.0) gm/dl Albumin/Globulin Ratio 0.9 (0.9-2) Lipase 88 (73-393) U/L COVID-19 Eval Order SARS-CoV-2 (PCR) (Negative) 01/05/21 01/05/21 01/05/21 Range/Units 08:19 08:19 11:04 WBC (4.8-10.8) K/uL RBC (4.7-6.1) M/uL Hgb (14.0-18.0) g/dL Hct (42-52) % MCV (80-100) fL MCH (25-34) pg MCHC (32-36) g/dL RDW Std Deviation (36.4-46.3) fL RDW Coeff of Tommy (11.5-14.5) % Plt Count (130-400) K/uL MPV (7.4-10.4) fL Immature Gran % (Auto) % Neut % (Auto) % Lymph % (Auto) % [place] % (Auto) % Eos % (Auto) % Baso % (Auto) % Neut # (Auto) (1.4-6.5) K/uL Lymph # (Auto) (1.2-3.4) K/uL [place] # (Auto) (0.11-0.59) K/uL Eos # (Auto) (0-0.5) K/uL Baso # (Auto) (0-0.2) K/uL Immature Gran # (Auto) (0.00-0.02) K/uL D-Dimer (0-500) ug/L FEU Sodium (136-145) mmol/L Potassium (3.5-5.1) mmol/L Chloride (98-107) mmol/L Carbon Dioxide (21-32) mmol/L Anion Gap (3-11) BUN (7-18) mg/dl Creatinine (0.6-1.4) mg/dl Est Cr Clr Drug Dosing ml/min Est GFR ( Amer) ml/min Est GFR (Non-Af Amer) ml/min BUN/Creatinine Ratio (10-20) Glucose (70-99) mg/dl Calcium (8.5-10.1) mg/dl Magnesium 1.8 (1.8-2.4) mg/dl Total Bilirubin (0.2-1) mg/dl AST (15-37) U/L ALT (12-78) U/L Alkaline Phosphatase (45-117) U/L Troponin I 2.240 H* (0-0.045) ng/ml Total Protein (6.4-8.2) gm/dl Albumin (3.4-5.0) gm/dl Globulin (2.5-4.0) gm/dl Albumin/Globulin Ratio (0.9-2) Lipase (73-393) U/L COVID-19 Eval Order Covid19 at [facility] SARS-CoV-2 (PCR) NEGATIVE (Negative) Administered Medications Heparin Sodium/Dextrose (Heparin Sodium/Dextrose) 25,000 units in 500 mls @ 20 mls/hr IV .Q24H ROSMERY; Protocol Stop: 02/04/21 09:29 Last Admin: 01/05/21 09:41 Dose: 1,000 units/hr, 20 mls/hr Documented by: [id number] Cosigned by: [id number] Discontinued Medications Albuterol (Albuterol 0.083% Nebu Soln 3 Ml Vial) 10 mg NEB NOW STA Stop: 01/05/21 07:58 Last Admin: 01/05/21 08:09 Dose: 10 mg Documented by: [id number] Aspirin (Aspirin Chew 324 Mg) 324 mg PO NOW STA Stop: 01/05/21 08:07 Last Admin: 01/05/21 08:18 Dose: 324 mg Documented by: [id number] Atorvastatin Calcium (Atorvastatin 40 Mg Tab) 40 mg PO ONE STA Stop: 01/05/21 11:39 Last Admin: 01/05/21 12:16 Dose: 40 mg Documented by: [id number] Furosemide (Furosemide 40 Mg/4 Ml Vial) 40 mg IV ONE ONE Stop: 01/05/21 08:16 Last Admin: 01/05/21 08:26 Dose: 40 mg Documented by: [id number] Furosemide (Furosemide 40 Mg/4 Ml Vial) 40 mg IV ONE ONE Stop: 01/05/21 08:19 Last Admin: 01/05/21 08:26 Dose: Not Given Documented by: [id number] Heparin Sodium (Porcine) (Heparin Sod (Porcine) 1000 Unit/Ml) 1 units IV NOW ONE Stop: 01/05/21 09:25 Last Admin: 01/05/21 09:40 Dose: 4,000 units Documented by: [id number] Cosigned by: [id number] Heparin Sodium/Dextrose (Heparin Iv Adult Wt-Based Low-Dose With Bolus Protocol) 1 ea N/A NOW STA; Protocol Stop: 01/05/21 09:10 Last Admin: 01/05/21 09:41 Dose: Not Given Documented by: [id number] Ioversol (Optiray 320 125ml) 119 ml IV ONCE ONE Stop: 01/05/21 09:39 Last Admin: 01/05/21 09:38 Dose: 119 ml Documented by: [id number] Methylprednisolone (Methylprednisolone 40 Mg/Ml Vial) 40 mg IV NOW STA Stop: 01/05/21 08:00 Last Admin: 01/05/21 08:26 Dose: 40 mg Documented by: [id number] Metoprolol Tartrate (Metoprolol Tartrate 1 Mg/Ml Vial) 5 mg IV NOW STA Stop: 01/05/21 10:05 Last Admin: 01/05/21 10:18 Dose: 5 mg Documented by: [id number] Imaging Data Radiologist's Impression: Chest X-Ray 01/05/21 07:57 XR chest 1V portable CLINICAL HISTORY: Chest Pain. COMPARISON STUDY: 05/19/2018 TECHNIQUE: 1 view of the chest FINDINGS: Single frontal view of the chest demonstrates the cardiomediastinal silhouette to be within normal limits. Compared to the previous examination, the presence or central vascular congestion and mild diffuse interstitial edema as well. The findings are characteristic of early congestive heart failure. There is atelectasis at the left lung base with evidence of small left pleural effusion. There is no evidence for right pleural effusion. There are no confluent alveolar opacities. There is no acute osseous pathology. IMPRESSION: Evidence for central vascular congestion and peripheral interstitial edema consistent with early congestive heart failure. Small left pleural effusion and left basilar atelectasis. ACT 112: Negative or not required by law. Electronically signed by: Jimmy Mendoza M.D. 01/05/2021 8:11 AM Chest CTA 01/05/21 09:16 CT angio chest PE protocol CLINICAL HISTORY: Increasing shortness of breath. Evaluate for pulmonary embolus. COMPARISON STUDY: Portable chest from 01/05/[address]21 CT DOSE: 743.70 mGy.cm TECHNIQUE: CT Angio of the chest was performed.followed by image post processing with coronal, and sagittal MIP reformats. Contrast Volume: Optiray 320, 119 ml FINDINGS: There is breathing motion artifact present. Vasculature: There is homogeneous perfusion of the pulmonary vasculature bilaterally. No intraluminal filling defects or evidence for pulmonary embolus is seen. Airway: The airway is clear. No endobronchial lesion is identified. Lungs: As seen radiographically, there is evidence for diffuse interstitial edema characteristic of congestive heart failure. The lungs are otherwise clear of acute alveolar opacities, air bronchograms or pulmonary nodules. There is mild bibasilar atelectasis. Pleura: There actually evidence for small bilateral pleural effusions. There is no evidence for pneumothorax. Mediastinum: There is no evidence for pathologic adenopathy. The heart size is within normal limits. There is mild coronary artery calcification. The thoracic aorta is within normal limits. Atherosclerotic calcification is present. There is no evidence for pericardial effusion. Upper abdomen:The adrenal glands are normal bilaterally. Osseous structures: There is no acute osseous pathology. Impression: 1. No CTA evidence for pulmonary embolus. 2. . CT confirms the presence of diffuse interstitial edema characteristic of congestive heart failure. 3. Small bilateral pleural effusions and bibasilar atelectasis. 4. Coronary artery calcification. ACT 112: Negative or not required by law. Electronically signed by: Jimmy Mendoza M.D. 01/05/2021 9:59 AM Discharge Plan Visit Data Chief Complaint: Shortness of Breath/Dyspnea Stated Complaint: SOB ED Provider: Papi Serrano Discharge Problem: NSTEMI (non-ST elevated myocardial infarction), CAD (coronary artery disease), Shortness of breath Patient Disposition: Admitted As Inpatient Discharge Instructions Interventions: ED Discharge Assessment Last Done: 01/05/21 12:43 Discharge Problem: CAD (coronary artery disease) Qualifiers: Coronary Disease-Associated Artery/Lesion type: unspecified vessel or lesion type [place] vs. transplanted heart: unspecified whether [place] or transplanted heart Associated angina: unspecified whether angina present Qualified Code(s): I25.10 - Atherosclerotic heart disease of [place] coronary artery without angina pectoris
[2021-01-05] MEDS ORDERED: ASPIRIN CHEW 324 MG PO STA (08:06)
--- NOTE | 2021-01-05 08:12 | XRay Report ---
XR chest 1V portable CLINICAL HISTORY: Chest Pain. COMPARISON STUDY: 05/19/2018 TECHNIQUE: 1 view of the chest FINDINGS: Single frontal view of the chest demonstrates the cardiomediastinal silhouette to be within normal li mits. Compared to the previous examination, the presence or central vascular congestion and mild diff use interstitial edema as well. The findings are characteristic of early congestive heart failure. Th ere is atelectasis at the left lung base with evidence of small left pleural effusion. There is no ev idence for right pleural effusion. There are no confluent alveolar opacities. There is no acute osseo us pathology. IMPRESSION: Evidence for central vascular congestion and peripheral interstitial edema consistent wit h early congestive heart failure. Small left pleural effusion and left basilar atelectasis. ACT 112: Negative or not required by law. Electronically signed by: Jimmy Mendoza M.D. 01/05/2021 8:11 AM
[2021-01-05] MEDS ORDERED: FUROSEMIDE 40 MG/4 ML VIAL IV ONE ×2 (08:15→08:18)
[2021-01-05 08:23] LABS: Basophils # (auto) 0.02 K/uL (0-0.2); Basophils % (auto) 0.3 %; Eosinophils # (auto) 0.49 K/uL (0-0.5); Eosinophils % (auto) 6.8 %; Hematocrit (blood only) 37.4 % (42-52); Hemoglobin 12.2 g/dL (14.0-18.0); Immature Granulocytes # (auto) 0.01 K/uL (0.00-0.02); Immature Granulocytes % (auto) 0.1 %; Lymphocytes # (auto) 1.27 K/uL (1.2-3.4); Lymphocytes % (auto) 17.6 %; Mean Corpuscular Hemoglobin 31.8 pg (25-34); Mean Corpuscular Hgb Conc 32.6 g/dL (32-36); Mean Corpuscular Volume 97.4 fL (80-100); Mean Platelet Volume 9.7 fL (7.4-10.4); Monocytes % (auto) 6.9 %; Neutrophils # (auto) 4.93 K/uL (1.4-6.5); Neutrophils % (auto) 68.3 %; Platelet Count 212 K/uL (130-400); RDW Coefficient of Variation 15.8 % (11.5-14.5); RDW Standard Deviation 56.6 fL (36.4-46.3); Red Blood Count 3.84 M/uL (4.7-6.1); White Blood Count 7.22 K/uL (4.8-10.8)
[2021-01-05 08:39] LABS: Albumin Level 3.2 gm/dl (3.4-5.0); BUN Creatinine Ratio 11.2 (10-20); Calcium 8.6 mg/dl (8.5-10.1); Creatinine Clr Calc Pharmacy 64.2 ml/min; Est GFR (African American) 64.7 ml/min; Est GFR (Non-African American) 55.8 ml/min; Potassium 3.9 mmol/L (3.5-5.1)
[2021-01-05 08:46] LABS: Albumin Globulin Ratio 0.9 (0.9-2); Bilirubin,Total 0.8 mg/dl (0.2-1); Globulin 3.6 gm/dl (2.5-4.0); Total Protein 6.8 gm/dl (6.4-8.2); Troponin I 1.85 ng/ml (0-0.045)
[2021-01-05] MEDS ORDERED: Heparin IV Adult Wt-Based Low-Dose WITH Bolus Protocol STA (09:09)
[2021-01-05 09:14] LABS: D Dimer 2760 ug/L FEU (0-500)
[2021-01-05] MEDS ORDERED: HEPARIN SOD (PORCINE) 1000 UNIT/ML IV ONE (09:24)
[2021-01-05] MEDS ORDERED: OPTIRAY 320 125ml IV ONE (09:38)
[2021-01-05] MEDS: HEPARIN SODIUM/DEXTROSE 25,000 UNITS/500 ML BAG IV SCH (09:41)
--- NOTE | 2021-01-05 10:00 | CT Scan Report ---
CT angio chest PE protocol CLINICAL HISTORY: Increasing shortness of breath. Evaluate for pulmonary embolus. COMPARISON STUDY: Portable chest from 01/05/[address]21 CT DOSE: 743.70 mGy.cm TECHNIQUE: CT Angio of the chest was performed.followed by image post processing with coronal, and s agittal MIP reformats. Contrast Volume: Optiray 320, 119 ml FINDINGS: There is breathing motion artifact present. Vasculature: There is homogeneous perfusion of the pulmonary vasculature bilaterally. No intraluminal filling defects or evidence for pulmonary embolus is seen. Airway: The airway is clear. No endobronchial lesion is identified. Lungs: As seen radiographically, there is evidence for diffuse interstitial edema characteristic of c ongestive heart failure. The lungs are otherwise clear of acute alveolar opacities, air bronchograms or pulmonary nodules. There is mild bibasilar atelectasis. Pleura: There actually evidence for small bilateral pleural effusions. There is no evidence for pneu mothorax. Mediastinum: There is no evidence for pathologic adenopathy. The heart size is within normal limits. There is mild coronary artery calcification. The thoracic aorta is within normal limits. Atherosclero tic calcification is present. There is no evidence for pericardial effusion. Upper abdomen:The adrenal glands are normal bilaterally. Osseous structures: There is no acute osseous pathology. Impression: 1. No CTA evidence for pulmonary embolus. 2. . CT confirms the presence of diffuse interstitial edema characteristic of congestive heart failur e. 3. Small bilateral pleural effusions and bibasilar atelectasis. 4. Coronary artery calcification. ACT 112: Negative or not required by law. Electronically signed by: Jimmy Mendoza M.D. 01/05/2021 9:59 AM
[2021-01-05] MEDS ORDERED: METOPROLOL TARTRATE 1 MG/ML VIAL IV STA (10:04)
--- NOTE | 2021-01-05 11:05 | History & Physical Report ---
Date of Service January 05, 2021 Assessment & Plan (1) NSTEMI (non-ST elevated myocardial infarction): Plan: Chest tightness this morning @ 4-5am. Troponin elevated 1.85. Will continue to trend. ASA 324mg PO given in ER, continue 81mg PO daily IV heparin low dose bolus and drip Not currently on a BB, will hold off currently due to acute HF Currently chest pain free therefore will admit to PCU - nitro PRN, EKG and contact provider if recurrent chest pain LDL 67 in August, no need to repeat this, given age 80yo and LDL at goal will continue on his usual atorvastatin 40mg PO daily TTE Consult cardiology for consideration of eventual cardiac cath (2) Acute congestive heart failure: Plan: Unknown ejection fraction on admission. Suspect given IV fluids when he had the rectus sheath hematoma and this made him short of breath following his [facility] admission. Start Lasix 40mg IV daily although suspect he'll need BID dosing depending on how well he diureses given severity of heart failure. TTE (3) CAD (coronary artery disease): Plan: LCx SEBASTIAN, September 2015 As above (4) Rectus sheath hematoma: Plan: Recent history of this after coughing spell. had embolization of interior epigastric artery @ [facility] on December 11. Clopidogrel and Advil was stopped at that time (although aspirin mentioned on discharge summary he reports no stopping this. (5) Hypertension: Plan: Hold losartan to allow for increasing Lasix dosing. (6) Prostate cancer: Plan: s/p prostatectomy 20 years ago but with detectable PSA. Under surveillance with urology. Previous on Lupron injections. Plan: VTE Prophylaxis - IV heparin Diet - heart healthy, low Na, Fluid restricted Disposition - admit to PCU Admission and Anticipated Discharge Date Admission Date: January 04, 2021 History of Present Illness Chief Complaint: Shortness of breath Primary Care Provider: Cristobal Angeles MD Percy Allen is an 80 year old male with history of coronary artery disease s/p SEBASTIAN LCx 2015 who presents to the ER with shortness of breath. He reports ongoing shortness of breath since he was discharged from [facility] after rectus sheath hematoma in mid November. However getting much worse over the last week. This morning around 4-5am he had sudden worsening shortness of breath where he felt like he was going to take his last breath. Associated had chest tightness at the same time, no radiation, no severity as he doesn't describe it as a pain. No orthopnea, PND, palpitations, claudication or leg swelling. In the ER CXR showing pulmonary edema, troponin elevated at 1.85ng/ml. d-dimer was positive however CT for PE negative for pulmonary embolus. He was referred to medicine for admission and ongoing management of NSTEMI. Allergies Allergy/AdvReac Type Severity Reaction Status Date / Time No Known Drug Allergies Allergy Verified 12/19/20 10:40 Home Medications Medication Instructions Recorded Confirmed Type [id number]-min 1 tab PO QAM 05/17/18 01/05/21 History 3,300 unit-5 mg-200mg-75 unit tablet ER (ICaps) losartan 50 mg tablet 50 mg PO QAM #90 tab 01/31/20 01/05/21 Rx ranolazine 500 mg tablet,extended 500 mg PO BID #180 tab 01/31/20 01/05/21 Rx release,12 hr (Ranexa) [id number] 4 tab PO QAM tab 09/04/20 01/05/21 History 750 mg-100 mg-125 mg-1.65 mg tablet (Glucosamine Chondroit Complx Advan) atorvastatin 40 mg tablet (Lipitor) 40 mg PO QAM 12/11/20 01/05/21 History aspirin 81 mg tablet,delayed 81 mg PO DAILY 01/05/21 01/05/21 History release (Aspirin Low Dose) clopidogrel 75 mg tablet 75 mg PO DAILY 01/05/21 01/05/21 History ibuprofen 200 mg tablet (Advil) 200 mg PO Q6H PRN 01/05/21 01/05/21 History Past Med/Surg History Medical History (Updated 01/05/21 @ 20:38 by Manolo Calvo MD) CAD (coronary artery disease) SEBASTIAN X 1 TO LCX (2015) Cancer PROSTATE S/P PROSTATECTOMY History of heart attack "DIDN'T KNOW IT" - WAS TOLD HAD IN PAST Hypercholesteremia PER CARDIO Hypertension Obesity Osteoarthritis Rectus sheath hematoma Spinal stenosis Surgical History (Updated 01/05/21 @ 20:38 by Manolo Calvo MD) History of cardiac cath SEBASTIAN X 1 TO LCX (2015) History of cataract surgery R&L History of colonoscopy History of excision of pilonidal cyst History of herniorrhaphy B/L INGUINAL History of prostatectomy History of total left hip replacement Hx of carpal tunnel repair B/L; LEFT REVISION S/P coronary artery stent placement Family History Father Family history of diabetes mellitus Social History Smoking Status: Former smoker Second Hand Exposure: No; Do You Dip or Chew Tobacco: No; Tobacco Cessation Education Requested by Patient: No Hx Alcohol Use: Yes Alcohol type: other Hx Substance Use: No Preferred Language: Moroccan Communication Ability: Effective Visual Impairment: No Limitations Direct Support Staff Required: No Beliefs That Will Affect Care: None marital status: Current Living Situation: Alone and Personal Care Facility Current Living Situation Comment: lives at [facility] Other Information That Helps Us Care for You: Yes ( has alzheimer's disease and in skilled facility) Feels Safe at Home: Yes Safety Concerns: Feels Safe At This Time Assistive Devices: None Review of Systems Review of Systems: All systems reviewed & are unremarkable except as noted in HPI & below Physical Exam Constitutional: WD/WN, vitals as above + acute distress (respiratory) and + morbidly obese Eyes: + anicteric sclerae; normal pupil size ENMT: external ear and nose normal, oropharynx normal Respiratory: + respiratory distress, + labored breathing, + retractions, + uses accessory muscles and + prolonged expiratory phase; no audible wheezes Auscultation: + diminished lung sounds (bibasal); no crackles, no rales, no rhonchi and no wheezes Cardiovascular: Rate/Rhythm: regular rate and regular rhythm Heart Sounds: no murmur Extremities: normal capillary refill and + pedal edema (1+ to knees b/l equal); no calf tenderness Gastrointestinal (Abdomen): normal bowel sounds, soft, nontender, no hepatosplenomegaly Musculoskeletal: no cyanosis or clubbing, extremities motor strength 5/5 Skin: no rashes, warm and dry Neurologic: moves all extremities and awake; no focal motor deficits and not confused Psychiatric: A+Ox3, euthymic affect Genitourinary: no CVA tenderness Results & Data Results & Data ([facility]) Vital Signs (Past 12 Hours) Vital Signs Temp Pulse Pulse Resp BP Pulse Ox 01/05/21 10:20 121 H 21 107/88 01/05/21 10:18 123 H 107/88 01/05/21 10:10 123 H 98 01/05/21 10:00 97 01/05/21 09:50 125 H 97 01/05/21 09:40 131 H 135/90 97 01/05/21 09:36 99 01/05/21 09:10 121 H 100 01/05/21 09:00 121 H 01/05/21 08:50 114 H 99 01/05/21 08:40 113 H 120/93 01/05/21 08:30 111 H 120/93 99 01/05/21 08:20 115 H 98 01/05/21 08:13 117 H 18 97 01/05/21 08:10 119 H 97 01/05/21 08:07 36.7 C 119 H 20 122/88 91 01/05/21 08:00 121 H 97 01/05/21 07:56 123 H 92 Laboratory Results Abnormal lab results 01/05/21 01/05/21 01/05/21 Range/Units 08:10 08:10 08:10 RBC 3.84 L (4.7-6.1) M/uL Hgb 12.2 L (14.0-18.0) g/dL Hct 37.4 L (42-52) % RDW Std Deviation 56.6 H (36.4-46.3) fL RDW Coeff of Tommy 15.8 H (11.5-14.5) % D-Dimer 2760 H* (0-500) ug/L FEU POC Anion Gap (16-25) mmol/L POC BUN (7-18) mg/dl Glucose 157 H (70-99) mg/dl POC Glucose (other) (70-99) mg/dl Alkaline Phosphatase 124 H (45-117) U/L Troponin I 1.850 H* (0-0.045) ng/ml Albumin 3.2 L (3.4-5.0) gm/dl 01/05/21 Range/Units 11:19 RBC (4.7-6.1) M/uL Hgb (14.0-18.0) g/dL Hct (42-52) % RDW Std Deviation (36.4-46.3) fL RDW Coeff of Tommy (11.5-14.5) % D-Dimer (0-500) ug/L FEU POC Anion Gap 14.0 L (16-25) mmol/L POC BUN 27 H (7-18) mg/dl Glucose (70-99) mg/dl POC Glucose (other) 144 H (70-99) mg/dl Alkaline Phosphatase (45-117) U/L Troponin I (0-0.045) ng/ml Albumin (3.4-5.0) gm/dl Diagnostic Findings XR chest 1V portable CLINICAL HISTORY: Chest Pain. COMPARISON STUDY: 05/19/2018 TECHNIQUE: 1 view of the chest FINDINGS: Single frontal view of the chest demonstrates the cardiomediastinal silhouette to be within normal limits. Compared to the previous examination, the presence or central vascular congestion and mild diffuse interstitial edema as well. The findings are characteristic of early congestive heart failure. There is atelectasis at the left lung base with evidence of small left pleural effusion. There is no evidence for right pleural effusion. There are no confluent alveolar opacities. There is no acute osseous pathology. IMPRESSION: Evidence for central vascular congestion and peripheral interstitial edema consistent with early congestive heart failure. Small left pleural effusion and left basilar atelectasis. CT angio chest PE protocol CLINICAL HISTORY: Increasing shortness of breath. Evaluate for pulmonary embolus. COMPARISON STUDY: Portable chest from 01/05/2021 CT DOSE: 743.70 mGy.cm TECHNIQUE: CT Angio of the chest was performed.followed by image post processing with coronal, and sagittal MIP reformats. Contrast Volume: Optiray 320, 119 ml FINDINGS: There is breathing motion artifact present. Vasculature: There is homogeneous perfusion of the pulmonary vasculature bilaterally. No intraluminal filling defects or evidence for pulmonary embolus is seen. Airway: The airway is clear. No endobronchial lesion is identified. Lungs: As seen radiographically, there is evidence for diffuse interstitial edema characteristic of congestive heart failure. The lungs are otherwise clear of acute alveolar opacities, air bronchograms or pulmonary nodules. There is mild bibasilar atelectasis. Pleura: There actually evidence for small bilateral pleural effusions. There is no evidence for pneumothorax. Mediastinum: There is no evidence for pathologic adenopathy. The heart size is within normal limits. There is mild coronary artery calcification. The thoracic aorta is within normal limits. Atherosclerotic calcification is present. There is no evidence for pericardial effusion. Upper abdomen:The adrenal glands are normal bilaterally. Osseous structures: There is no acute osseous pathology. Impression: 1. No CTA evidence for pulmonary embolus. 2. . CT confirms the presence of diffuse interstitial edema characteristic of congestive heart failure. 3. Small bilateral pleural effusions and bibasilar atelectasis. 4. Coronary artery calcification. Medications Administered ER medications Given: Albuterol 10mg NEB Solu-medrol 40mg IV ASA 324mg PO Furosemide 40mg IV Heparin low dose bolus and drip Metoprolol 5mg IV ECG Indication: chest pain and SOB/dyspnea Rate (beats per minute): 121 Rhythm: sinus tachycardia Findings: + PVC Comparison ECG Date: from (May 19, 2018) Change: the following changes noted Code Status & VTE Plan Code Status DNR/DNI per patient wishes VTE Prophylaxis Plan VTE Prophylaxis will be ordered: Yes PG Care Time/CCT Total # of Minutes Spent Total Time Spent with Patient: Total time spent is greater than 50% in coordination of care (as documented) at patient's floor/unit and/or counseling patient: Coding Level of Care Code 31163 Initial Inpt Care Lvl 3 Diagnoses CAD (coronary artery disease) I25.10 NSTEMI (non-ST elevated myocardial infarction) I21.4 Rectus sheath hematoma S30.1XXA Hypertension I10 Acute congestive heart failure I50.9 Prostate cancer C61
[2021-01-05 11:32] LABS: iSTAT Creatinine 0.7 mg/dl (0.6-1.3); iSTAT Hemoglobin 14.6 g/dl (14.0-18.0); iSTAT Ionized Calcium 1.15 mmol/l (1.12-1.32); iSTAT Potassium 4.6 mmol/L (3.3-5.0)
[2021-01-05] MEDS ORDERED: ATORVASTATIN 40 MG TAB PO STA (11:38)
[2021-01-05 11:46] LABS: Magnesium 1.8 mg/dl (1.8-2.4); Troponin I 2.24 ng/ml (0-0.045)
[2021-01-05] MEDS ORDERED: POLYETHYLENE (MIRALAX) 17 GM PACK PO PRN (12:55)
[2021-01-05] MEDS ORDERED: ACETAMINOPHEN 325 MG TAB PO PRN (12:55)
[2021-01-05] MEDS ORDERED: NITROGLYCERIN SL 0.4 MG/TAB TAB SL PRN (12:55)
[2021-01-05] MEDS ORDERED: ONDANSETRON INJ 2 MG/ML 2 ML VIAL IV PRN (12:55)
[2021-01-05 16:25] LABS: Partial Thromboplastin Ratio 1.5; Partial Thromboplastin Time 40.6 Seconds (21.0-31.0)
--- NOTE | 2021-01-05 19:55 | XCELERA ---
[id number]
--- NOTE | 2021-01-05 20:30 | Cardiology Consultation ---
Date of Consultation January 05, 2021 Assessment & Plan (1) NSTEMI (non-ST elevated myocardial infarction): (2) Acute HFrEF (heart failure with reduced ejection fraction): (3) Cardiomyopathy: (4) CAD (coronary artery disease): (5) S/P coronary artery stent placement: (6) Hypercholesteremia: (7) Hypertension: ASSESSMENT/PLAN: 1. NSTEMI: Troponins elevated and have not yet demonstrated peak. Angina has resolved. Significant wall motion abnormalities. No urgent indication for c ardiac catheterization and would prefer to further improve his volume status in the setting of CHF. Continue aspirin. Agree with heparin drip although had recent rectus sheath hematoma which underwent embolization. Monitor for bleeding. We discussed cardiac catheterization which will likely be performed later this hospitalization. Will likely initiate beta-jennifer tomorrow if continues to improve from a CHF standpoint. Current tachycardia is likely physiologic given reduced LV systolic function. 2. Acute heart failure with reduced EF: We discussed the diagnosis. Significant improvement thus far. Still appears hypervolemic. Was just given another dose of intravenous diuretic by hospitalist service. Low-sodium diet. Strict I&Os. Daily weights. Will likely initiate beta-jennifer in the next 1-2 days. Would recommend Entresto at some point. Recommend heart failure program. Consider spironolactone. 3. CAD s/p circumflex PCI: No further angina. Plan as above. Continue as pirin. High-intensity statin therapy. LAD known to be occluded but fills distally via [id number] collaterals from the circumflex. 4. Cardiomyopathy: Significant reduction in LV systolic function. Given known multivessel CAD, likely ischemic in origin. Plan as above. Considering cardiac catheterization after further improvement unless indicated more urgently. 5. Hypertension: Blood pressure well controlled. Continue current regimen. 6. Dyslipidemia: Continue high-intensity statin therapy. 7. Disposition: Cardiology will continue to follow along. Patient care has been discussed with Dr. Silva of the primary hospitalist service. Called the patient's son, Jay, as per patient request however there was no answer. When okay for discharge in the future, would recommend close follow-up with Dr. Angeles and heart failure program. Cardiac rehab. Highly complex medical issues. Thank you for allowing me to participate in the care of your patient. Please call for any other questions or concerns. Sincerely, Shlomo Calvo M.D. History of Present Illness Reason for Consultation: NSTEMI Requesting Physician: Bucky Silva MD Attending Physician: Bucky Silva MD History of Present Illness Mr. Allen is a pleasant 80-year-old gentleman with history significant for multivessel CAD s/p Cx PCI and occluded LAD with [id number]-gg-[id number] collaterals, hypertension, dyslipidemia, and prostate cancer. 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 On 12/11/2020, he presented to [facility] ED with acute right rectus sheath hematoma with active bleeding. He was life flighted to go [facility] and underwent embolization of the right inferior epigastric artery by Interventional Radiology, via the left femoral artery. He was discharged on 12/13/2020 off of anti-platelet therapy, which was then resumed in the form of aspirin 81 mg daily on 12/19/[address] Angeles. He had previously been on Plavix which was not restarted. He has not had any further bleeding that he is aware. He states that he has been short of breath since before [facility] hospitalization but more so afterwards. Then, more acutely overnight on 01/04/2021, became significantly more short of breath. He had orthopnea. He had a difficult time sleeping as he was unable to find a position in which he could breathe sufficiently. Then at approximately 4 or 5:00 a.m., he developed substernal chest tightness that intermittently occurred for 2 hours. He has not had discomfort like this in the past. There was no radiation of the pain. When he presented to the emergency department, he was felt to be in CHF and given Lasix 40 mg IV x1. Patient reports significant diuresis and his breathing is much improved. He no longer notices shortness of breath while laying in bed with 3 L of supplemental oxygen via nasal cannula. In the emergency department he was found to have elevated troponin initially at 1.85 which trended upward to 2.24. He has not had any further chest discomfort. He denies palpitations, syncope, near-syncope, edema, melena, hematochezia, or hematuria. He believes that he would have dyspnea if he tried to ambulate in, but he remains in bed. He was given another dose of Lasix 40 mg IV just this evening. He has had the following studies/procedures: 1. Cardiac catheterization 09/27/2015: Left main dbjr-sv-[id number] disease. Ostial LAD 80%. Mid LAD 100% after large septal. Distal LAD filled via circumflex collaterals. Ostial D1 90% and small caliber. Large circumflex. Proximal circumflex 70%. Dominant RCA. Ostial PDA 50%. Mid PDA 80%. Unde rwent PCI of circumflex with 3.5 x 18 mm SEBASTIAN. 2. Stress echo 07/18/2020: Nondiagnostic. 68% MPHR. Dyspnea. Poor exercise tolerance exercising 1 minutes 46 seconds. Resting EF reported as 55% with LAD wall motion abnormality. Review of systems: As above. Review of systems otherwise negative/unremarkable. Family history: No known premature CAD. Social history: Quit smoking on 02/25/2076. Occasional alcohol. No drugs. He is but his has Alzheimer's and lives in the [facility]. He lives in independent living at the [facility]. He has 2 sons with his first (Jay lives in [place] and is medical POA; other son lives in [place]). He was unaccompanied in the emergency department for this visit. Allergies Allergy/AdvReac Type Severity Reaction Status Date / Time No Known Drug Allergies Allergy Verified 12/19/20 10:40 Home Medications Medication Instructions Recorded Confirmed Type [id number]-min 1 tab PO QAM 05/17/18 01/05/21 History 3,300 unit-5 mg-200mg-75 unit tablet ER (ICaps) losartan 50 mg tablet 50 mg PO QAM #90 tab 01/31/20 01/05/21 Rx ranolazine 500 mg tablet,extended 500 mg PO BID #180 tab 01/31/20 01/05/21 Rx release,12 hr (Ranexa) [id number]-hyal 4 tab PO QAM tab 09/04/20 01/05/21 History 750 mg-100 mg-125 mg-1.65 mg tablet (Glucosamine Chondroit Complx Advan) atorvastatin 40 mg tablet (Lipitor) 40 mg PO QAM 12/11/20 01/05/21 History aspirin 81 mg tablet,delayed 81 mg PO DAILY 01/05/21 01/05/21 History release (Aspirin Low Dose) clopidogrel 75 mg tablet 75 mg PO DAILY 01/05/21 01/05/21 History ibuprofen 200 mg tablet (Advil) 200 mg PO Q6H PRN 01/05/21 01/05/21 History Patient History Medical History (Updated 01/05/21 @ 20:38 by Manolo Calvo MD) CAD (coronary artery disease) SEBASTIAN X 1 TO LCX (2015) Cancer PROSTATE S/P PROSTATECTOMY History of heart attack "DIDN'T KNOW IT" - WAS TOLD HAD IN PAST Hypercholesteremia PER CARDIO Hypertension Obesity Osteoarthritis Rectus sheath hematoma Spinal stenosis Surgical History (Updated 01/05/21 @ 20:38 by Manolo Calvo MD) History of cardiac cath SEBASTIAN X 1 TO LCX (2015) History of cataract surgery R&L History of colonoscopy History of excision of pilonidal cyst History of herniorrhaphy B/L INGUINAL History of prostatectomy History of total left hip replacement Hx of carpal tunnel repair B/L; LEFT REVISION S/P coronary artery stent placement Family History Father Family history of diabetes mellitus Social History Smoking Status: Former smoker Second Hand Exposure: No; Do You Dip or Chew Tobacco: No; Tobacco Cessation Education Requested by Patient: No Hx Alcohol Use: Yes Alcohol type: other Hx Substance Use: No Preferred Language: Tanzanian Communication Ability: Effective Visual Impairment: No Limitations 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 Other Information That Helps Us Care for You: Yes ( has alzheimer's disease and in skilled facility) Feels Safe at Home: Yes Safety Concerns: Feels Safe At This Time Assistive Devices: None Physical Exam Physical Exam: Gen.: No acute distress. Alert and oriented. HEENT: Anicteric sclera. Neck: Mild JVD. No bruits. Normal carotid upstrokes bilaterally. Cardiac: PMI was nondisplaced. No ventricular heave. Regular near 100 beats per minute. Normal S1-S2. No murmurs, rubs, or gallops. Pulmonary: Occasional by basilar rales, otherwise clear. Abdomen: Soft, nontender, nondistended, with normoactive bowel sounds. No bruits noted. Extremities: 2+ radial pulses bilaterally. Left femoral arterial access site for recent procedure was clean, dry, and intact without erythema or discharge. No hematoma. 2+ left femoral pulse. 2+ posterior tibialis pulses bilaterally. Trace bilateral lower extremity edema. No cyanosis. Psychiatric: Affect appears appropriate. Results & Data ([facility]) Vital Signs (Past 12 Hours) Vital Signs Temp Pulse Pulse Resp BP BP Pulse Ox 01/05/21 14:41 36.7 C 110 H 110 H 28 H 116/75 98 01/05/21 13:30 37 C 109 H 20 109/89 96 01/05/21 13:26 37.0 C 106 H 20 122/67 98 01/05/21 13:23 01/05/21 12:43 108 H 17 116/80 97 01/05/21 10:20 121 H 21 107/88 01/05/21 10:18 123 H 107/88 01/05/21 10:10 123 H 98 01/05/21 10:00 97 01/05/21 09:50 125 H 97 01/05/21 09:40 131 H 135/90 97 01/05/21 09:36 99 01/05/21 09:10 121 H 100 01/05/21 09:00 121 H 01/05/21 08:50 114 H 99 01/05/21 08:40 113 H 120/93 01/05/21 08:30 111 H 120/93 99 Pulse Ox 01/05/21 14:41 98 01/05/21 13:30 01/05/21 13:26 01/05/21 13:23 96 01/05/21 12:43 01/05/21 10:20 01/05/21 10:18 01/05/21 10:10 01/05/21 10:00 01/05/21 09:50 01/05/21 09:40 01/05/21 09:36 01/05/21 09:10 01/05/21 09:00 01/05/21 08:50 01/05/21 08:40 01/05/21 08:30 Intake & Output 01/03/21 01/04/21 01/05/21 01/06/21 06:59 06:59 06:59 06:59 Intake Total 700.667 / 700.667 Output Total 750 / 750 Balance -49.333 / -49.333 Weight 227 lb 1.218 oz Laboratory Results Laboratory Results - last 24 hr 01/05/21 01/05/21 01/05/21 08:10 08:10 08:10 WBC 7.22 RBC 3.84 L Hgb 12.2 L POC Hgb Hct 37.4 L POC Hct MCV 97.4 MCH 31.8 MCHC 32.6 RDW Std Deviation 56.6 H RDW Coeff of Tommy 15.8 H Plt Count 212 MPV 9.7 Immature Gran % (Auto) 0.1 Neut % (Auto) 68.3 Lymph % (Auto) 17.6 [place] % (Auto) 6.9 Eos % (Auto) 6.8 Baso % (Auto) 0.3 Neut # (Auto) 4.93 Lymph # (Auto) 1.27 [place] # (Auto) 0.50 Eos # (Auto) 0.49 Baso # (Auto) 0.02 Immature Gran # (Auto) 0.01 APTT PTT Ratio D-Dimer 2760 H* POC Sodium Sodium 140 POC Potassium Potassium 3.9 POC Chloride Chloride 107 Carbon Dioxide 22 POC Total CO2 Anion Gap 11.0 POC Anion Gap POC BUN BUN 14 Creatinine 1.21 POC Creatinine Est Cr Clr Drug Dosing 64.2 Est GFR ( Amer) 64.7 Est GFR (Non-Af Amer) 55.8 BUN/Creatinine Ratio 11.2 Glucose 157 H POC Glucose (other) Calcium 8.6 POC Ioniz Calcium Milvia Magnesium Total Bilirubin 0.8 AST 23 ALT 19 Alkaline Phosphatase 124 H Troponin I 1.850 H* Total Protein 6.8 Albumin 3.2 L Globulin 3.6 Albumin/Globulin Ratio 0.9 Lipase 88 COVID-19 Eval Order SARS-CoV-2 (PCR) 01/05/21 01/05/21 01/05/21 08:19 08:19 11:04 WBC RBC Hgb POC Hgb Hct POC Hct MCV MCH MCHC RDW Std Deviation RDW Coeff of Tommy Plt Count MPV Immature Gran % (Auto) Neut % (Auto) Lymph % (Auto) [place] % (Auto) Eos % (Auto) Baso % (Auto) Neut # (Auto) Lymph # (Auto) [place] # (Auto) Eos # (Auto) Baso # (Auto) Immature Gran # (Auto) APTT PTT Ratio D-Dimer POC Sodium Sodium POC Potassium Potassium POC Chloride Chloride Carbon Dioxide POC Total CO2 Anion Gap POC Anion Gap POC BUN BUN Creatinine POC Creatinine Est Cr Clr Drug Dosing Est GFR ( Amer) Est GFR (Non-Af Amer) BUN/Creatinine Ratio Glucose POC Glucose (other) Calcium POC Ioniz Calcium Milvia Magnesium 1.8 Total Bilirubin AST ALT Alkaline Phosphatase Troponin I 2.240 H* Total Protein Albumin Globulin Albumin/Globulin Ratio Lipase COVID-19 Eval Order Covid19 at [facility] SARS-CoV-2 (PCR) NEGATIVE 01/05/21 01/05/21 01/05/21 11:19 16:02 20:34 WBC RBC Hgb POC Hgb 14.6 Hct POC Hct 43 MCV MCH MCHC RDW Std Deviation RDW Coeff of Tommy Plt Count MPV Immature Gran % (Auto) Neut % (Auto) Lymph % (Auto) [place] % (Auto) Eos % (Auto) Baso % (Auto) Neut # (Auto) Lymph # (Auto) [place] # (Auto) Eos # (Auto) Baso # (Auto) Immature Gran # (Auto) APTT 40.6 H PTT Ratio 1.5 D-Dimer POC Sodium 139 Sodium POC Potassium 4.6 Potassium POC Chloride 102 Chloride Carbon Dioxide POC Total CO2 28 Anion Gap POC Anion Gap 14.0 L POC BUN 27 H BUN Creatinine POC Creatinine 0.7 Est Cr Clr Drug Dosing Est GFR ( Amer) Est GFR (Non-Af Amer) BUN/Creatinine Ratio Glucose POC Glucose (other) 144 H Calcium POC Ioniz Calcium Milvia 1.15 Magnesium Total Bilirubin AST ALT Alkaline Phosphatase Troponin I Pending Total Protein Albumin Globulin Albumin/Globulin Ratio Lipase COVID-19 Eval Order SARS-CoV-2 (PCR) Diagnostic Findings ECG personally reviewed: ECG 01/05/2021 8:51 a.m.: Sinus tachycardia PVC 115 beats per minute. Nonspecific ST/T-wave abnormality. Septal infarct. ECG 01/05/2021 at 7:58 a.m.: Sinus tachycardia with PVCs 121 beats per minute. Septal infarct. Nonspecific ST/T-wave abnormality. Cardiac catheterization and stress echo report reviewed as noted above in HPI. Echo 01/05/2021: Mildly dilated LV. EF 25-30%. large LAD akinetic area with otherwise global hypokinesis. Mild left atrial dilation. Mild MR. CTA chest 01/05/2021 no PE. Diffuse interstitial edema. Small bilateral pleural effusions and bibasilar atelectasis. Medications Administered Current Inpatient Medications Acetaminophen (Acetaminophen 325 Mg Tab) 650 mg PO Q4H PRN PRN Reason: Pain or Fever Stop: 02/04/21 12:54 Aspirin (Aspirin 81 Mg Ectab) 81 mg PO DAILY [facility] Stop: 02/05/21 08:59 Atorvastatin Calcium (Atorvastatin 40 Mg Tab) 40 mg PO QAM [facility] Stop: 02/05/21 08:59 Clopidogrel Bisulfate (Clopidogrel Bisulfate 75 Mg Tab) 75 mg PO DAILY [facility] Stop: 02/05/21 08:59 Furosemide (Furosemide 40 Mg/4 Ml Vial) 40 mg IV [id number] [facility] Stop: 02/04/21 18:44 Heparin Sodium/Dextrose (Heparin Sodium/Dextrose) 25,000 units in 500 mls @ 22 mls/hr IV .[id number] [facility]; Protocol Stop: 02/04/21 09:29 Last Titration: 01/05/21 16:43 Dose: 1,100 units/hr, 22 mls/hr Documented by: Multivitamins/Minerals (Cerovite Adv Formula Tab) 1 tab PO QAM [facility] Stop: 02/05/21 08:59 Nitroglycerin (Nitroglycerin Sl 0.4 Mg/Tab Tab) 0.4 mg SL UD PRN PRN Reason: Chest Pain Stop: 02/04/21 12:54 Ondansetron HCl (Ondansetron Inj 2 Mg/Ml 2 Ml Vial) 4 mg IV Q6H PRN PRN Reason: Nausea Stop: 02/04/21 12:54 Polyethylene Glycol (Polyethylene (Miralax) 17 Gm Pack) 17 gm PO DAILY PRN PRN Reason: Constipation Stop: 02/04/21 12:54 Ranolazine (Ranolazine 500 Mg Er Tab) 500 mg PO BID [facility] Stop: 02/04/21 20:59 PG Care Time/CCT Total # of Minutes Spent Total Time Spent with Patient: Total time spent is greater than 50% in coordination of care (as documented) at patient's floor/unit and/or counseling patient: Coding Level of Care Code 62972 Initial Inpt Care Lvl 3 Diagnoses NSTEMI (non-ST elevated myocardial infarction) I21.4 Acute HFrEF (heart failure with reduced ejection fraction) I50.21 Cardiomyopathy I42.9 CAD (coronary artery disease) I25.10 S/P coronary artery stent placement Z95.5 Hypercholesteremia E78.00 Hypertension I10
[2021-01-05] MEDS: FUROSEMIDE 40 MG/4 ML VIAL IV SCH (21:33)
[2021-01-05] MEDS: RANOLAZINE 500 MG ER TAB PO SCH (22:27)
[2021-01-05 23:19] LABS: Partial Thromboplastin Ratio 1.6; Partial Thromboplastin Time 40.8 Seconds (21.0-31.0)
[2021-01-06 04:16] LABS: BUN Creatinine Ratio 13.6 (10-20); Calcium 8.3 mg/dl (8.5-10.1); Creatinine Clr Calc Pharmacy 51.2 ml/min; Est GFR (African American) 56.2 ml/min; Est GFR (Non-African American) 48.5 ml/min; Magnesium 1.8 mg/dl (1.8-2.4); Potassium 3.7 mmol/L (3.5-5.1)
[2021-01-06 04:24] LABS: Troponin I 4.66 ng/ml (0-0.045)
[2021-01-06 06:39] LABS: Partial Thromboplastin Ratio 1.7; Partial Thromboplastin Time 44.9 Seconds (21.0-31.0)
[2021-01-06] MEDS: HEPARIN SODIUM/DEXTROSE 25,000 UNITS/500 ML BAG IV SCH ×2 (06:49→10:06)
[2021-01-06] MEDS: CEROVITE ADV FORMULA TAB PO SCH (07:57)
[2021-01-06] MEDS: ASPIRIN 81 MG ECTAB PO SCH (07:57)
[2021-01-06] MEDS: ATORVASTATIN 40 MG TAB PO SCH (07:57)
[2021-01-06] MEDS: CLOPIDOGREL BISULFATE 75 MG TAB PO SCH (07:57)
[2021-01-06] MEDS: RANOLAZINE 500 MG ER TAB PO SCH ×2 (07:57→20:09)
[2021-01-06] MEDS: FUROSEMIDE 40 MG/4 ML VIAL IV SCH ×2 (07:58→16:04)
[2021-01-06] MEDS ORDERED: FUROSEMIDE 40 MG/4 ML VIAL IV SCH (09:00)
--- NOTE | 2021-01-06 13:11 | Hospitalist Progress Note ---
Date of Service January 06, 2021 Assessment & Plan (1) NSTEMI (non-ST elevated myocardial infarction): Plan: 1) NSTEMI -ER: Chest tightness. Troponin elevated 1.85 --> 2 --> 4.4 --> 4.6 --> 3.7, peaked -ASA 324mg PO given in ER, continue 81mg PO daily -IV heparin low dose bolus and drip -Not currently on a BB, will hold off currently due to acute HF and low BP -denies chest pain, cont. nitro PRN -LDL 67 in August, no need to repeat this, given age 80yo and LDL at goal will continue on his usual atorvastatin 40mg PO daily -TTE: EF 20-25%, significant wall motion abnormalities -cardiology consulted: cath after volume improvement secondary to CHF (2) Acute congestive heart failure: -EF 20-25%, significant wall motion abnormalities -Suspect given IV fluids when he had the rectus sheath hematoma and this made him short of breath following his [place] admission. -cont. Lasix 40mg IV BID (3) CAD (coronary artery disease): -LCx SEBASTIAN, September 2015 -As above, cont. ASA, plavix, and ranexa (4) Rectus sheath hematoma: -Recent history of this after coughing spell. Had embolization of interior epigastric artery @ [facility] on December 11. -No signs of bleeding. (5) Hypertension: -Hold losartan due to low BP and to allow for increasing Lasix dosing. (6) Prostate cancer: -s/p prostatectomy 20 years ago but with detectable PSA. Under surveillance with urology. Previous on Lupron injections. VTE Prophylaxis - IV heparin Diet - heart healthy, low Na, Fluid restricted Disposition - PCU Admission and Anticipated Discharge Date Admission Date: January 05, 2021 Supervising Physician Co-Signing Physician Notes I personally examined the patient and verified all gregory points of history and exam, discussed case, and agree with decision making with Dr Madsen. feeling a little betetr - still ROSALES and easy sob - but better than yesterday. d/w cardiology vitals noted nad heent nc at mmm breathing unlabored no accessory muscles good effort skin no rashes no pallor icterus NSTEMI/acute systolic chf - med management, cath tomorrow. recent rectus sheath hematoma - stable - monitor on heparin - but no need to dc at this time. otherwise as above Subjective Laying comfortable in bed. Asmyptomic when laying down. Mild dyspnea when walking to the bathroom. Urinating a lot due to lasix. No acute complaints. Review of Systems Review of Systems: All systems reviewed & are unremarkable except as noted in HPI & below Constitutional: no fever, no chills and no fatigue Respiratory: + dyspnea (when walking); no cough Cardiovascular: no chest pain and no palpitations Gastrointestinal: no abdominal pain Physical Exam Constitutional: WD/WN, vitals as above + obese Eyes: PERRL, conjunctivae normal, anicteric sclerae ENMT: external ear and nose normal, oropharynx normal Neck: trachea midline, no thyromegaly Respiratory: normal respiratory effort, lungs clear to auscultation Cardiovascular: RRR, no murmur, no edema Gastrointestinal (Abdomen): normal bowel sounds, soft, nontender, no hepatosplenomegaly nontender to palpation. Skin: no signs of abdominal bleeding from recent hematoma. Psychiatric: A+Ox3, euthymic affect Results & Data Results & Data ([facility]) Vital Signs (Past 12 Hours) Vital Signs Temp Pulse Resp BP Pulse Ox 01/06/21 12:58 36.6 C 97 H 16 100/65 96 01/06/21 08:37 36.7 C 96 H 18 101/66 97 01/06/21 04:00 36.6 C 96 H 20 93/56 L 92 Resident Activity Tracking Resident Involvement: Resident Care Provided Care Provided: Adult Hospital Medicine
[2021-01-06 13:12] LABS: Partial Thromboplastin Ratio 1.8
[2021-01-06 13:16] LABS: Partial Thromboplastin Time 48.5 Seconds (21.0-31.0)
[2021-01-06] MEDS ORDERED: METOPROLOL SUCC 25MG EXT REL TAB PO ONE (16:11)
--- NOTE | 2021-01-06 17:06 | Cardiology Progress Note ---
Date of Service January 06, 2021 Assessment & Plan (1) NSTEMI (non-ST elevated myocardial infarction): (2) Acute HFrEF (heart failure with reduced ejection fraction): (3) Cardiomyopathy: (4) CAD (coronary artery disease): (5) S/P coronary artery stent placement: (6) Hypercholesteremia: (7) Hypertension: Plan: ASSESSMENT/PLAN: 1. NSTEMI: No further angina. Peak troponin 4.66. Continue aspirin. Agree with heparin drip although had recent rectus sheath hematoma which underwent embolization. Monitor for bleeding. Start beta-jennifer today. Cardiac catheterization likely tomorrow. 2. Acute heart failure with reduced EF: Improved from yesterday. Still symptomatic on exertion. Continue diuresis. Low-sodium diet. Strict I&Os. Daily weights. Start metoprolol succinate today. Would recommend Entresto at some point. Recommend heart failure program. Consider spironolactone. 3. CAD s/p circumflex PCI: No further angina. Plan as above. Continue aspirin. High-intensity statin therapy. LAD known to be occluded but fills distally via [id number] collaterals from the circumflex. 4. Cardiomyopathy: Significant reduction in LV systolic function. Given known multivessel CAD, likely ischemic in origin. Cardiac catheterization likely tomorrow. 5. Hypertension: Blood pressure well controlled. Continue current regimen. 6. Dyslipidemia: Continue high-intensity statin therapy. 7. Disposition: Cardiology will continue to follow along. Patient care communicated with Dr. Degroot of the primary hospitalist service. Patient's son, Jay, was contacted via telephone to discuss plan of care and NSTEMI with CHF and cardiomyopathy. Heart failure program. Follow-up with Dr. Angeles, primary medicine technologist, on discharge. Admission and Anticipated Discharge Date Admission Date: January 05, 2021 Subjective He feels better today. He still has dyspnea with exertion when he was out of bed to use the restroom and began wheezing afterwards. He continues to diurese. Per nursing staff, he has diuresed more than what is currently charted and appears to be quite negative net fluid balance today. He denies chest pain, syncope, near-syncope, palpitations, edema, or bleeding. Review of systems: As above. Physical Exam Physical Exam: Gen.: No acute distress. Alert and oriented. HEENT: Anicteric sclera. Neck: Thick neck. Cardiac: PMI was nondisplaced. No ventricular heave. Regular. Normal S1-S2. No murmurs, rubs, or gallops. Pulmonary: Occasional by basilar rales, otherwise clear. Abdomen: Soft, nontender, nondistended, with normoactive bowel sounds. No bruits noted. Extremities: 2+ radial pulses bilaterally. 2+ posterior tibialis pulses bilaterally. Trace bilateral lower extremity edema. No cyanosis. Psychiatric: Affect appears appropriate. Results & Data ([facility]) Vital Signs (Past 12 Hours) Vital Signs Temp Pulse Resp BP Pulse Ox 01/06/21 16:00 36.5 C 84 18 110/71 93 01/06/21 12:58 36.6 C 97 H 16 100/65 96 01/06/21 08:37 36.7 C 96 H 18 101/66 97 Intake & Output 01/04/21 01/05/21 01/06/21 01/07/21 06:59 06:59 06:59 06:59 Intake Total 1525.600 / 1525.600 580.367 / 580.367 Output Total 2049 / 2049 600 / 600 Balance -524.400 / -524.400 -19.633 / -19.633 Weight 220 lb 7.396 oz Laboratory Results Laboratory Results - last 24 hr 01/05/21 01/05/21 01/06/21 20:34 22:33 03:48 APTT 40.8 H PTT Ratio 1.6 Sodium 137 Potassium 3.7 Chloride 104 Carbon Dioxide 26 Anion Gap 7.0 BUN 19 H Creatinine 1.36 Est Cr Clr Drug Dosing 51.2 Est GFR ( Amer) 56.2 Est GFR (Non-Af Amer) 48.5 BUN/Creatinine Ratio 13.6 Glucose 136 H Estimat Average Glucose Hemoglobin A1c Calcium 8.3 L Magnesium 1.8 Troponin I 4.390 H* 4.660 H* 01/06/21 01/06/21 01/06/21 03:48 05:46 11:53 APTT 44.9 H PTT Ratio 1.7 Sodium Potassium Chloride Carbon Dioxide Anion Gap BUN Creatinine Est Cr Clr Drug Dosing Est GFR ( Amer) Est GFR (Non-Af Amer) BUN/Creatinine Ratio Glucose Estimat Average Glucose Pending Hemoglobin A1c Pending Calcium Magnesium Troponin I 3.750 H* 01/06/21 12:40 APTT 48.5 H* PTT Ratio 1.8 Sodium Potassium Chloride Carbon Dioxide Anion Gap BUN Creatinine Est Cr Clr Drug Dosing Est GFR ( Amer) Est GFR (Non-Af Amer) BUN/Creatinine Ratio Glucose Estimat Average Glucose Hemoglobin A1c Calcium Magnesium Troponin I Diagnostic Findings Telemetry personally reviewed: Sinus rhythm. No arrhythmia. Medications Administered Current Inpatient Medications Acetaminophen (Acetaminophen 325 Mg Tab) 650 mg PO Q4H PRN PRN Reason: Pain or Fever Stop: 02/04/21 12:54 Aspirin (Aspirin 81 Mg Ectab) 81 mg PO DAILY [facility] Stop: 02/05/21 08:59 Last Admin: 01/06/21 07:57 Dose: 81 mg Documented by: Atorvastatin Calcium (Atorvastatin 40 Mg Tab) 40 mg PO [facility] Stop: 02/05/21 08:59 Last Admin: 01/06/21 07:57 Dose: 40 mg Documented by: Clopidogrel Bisulfate (Clopidogrel Bisulfate 75 Mg Tab) 75 mg PO DAILY [facility] Stop: 02/05/21 08:59 Last Admin: 01/06/21 07:57 Dose: 75 mg Documented by: Furosemide (Furosemide 40 Mg/4 Ml Vial) 40 mg IV [id number] [facility] Stop: 02/04/21 18:44 Last Admin: 01/06/21 16:04 Dose: 40 mg Documented by: Heparin Sodium/Dextrose (Heparin Sodium/Dextrose) 25,000 units in 500 mls @ 26 mls/hr IV .[id number] [facility]; Protocol Stop: 02/04/21 09:29 Last Admin: 01/06/21 10:06 Dose: 1,300 units/hr, 26 mls/hr Documented by: Metoprolol Succinate (Metoprolol Succ 25mg Ext Rel Tab) 25 mg PO [facility] Stop: 02/06/21 08:59 Multivitamins/Minerals (Cerovite Adv Formula Tab) 1 tab PO [facility] Stop: 02/05/21 08:59 Last Admin: 01/06/21 07:57 Dose: 1 tab Documented by: Nitroglycerin (Nitroglycerin Sl 0.4 Mg/Tab Tab) 0.4 mg SL UD PRN PRN Reason: Chest Pain Stop: 02/04/21 12:54 Ondansetron HCl (Ondansetron Inj 2 Mg/Ml 2 Ml Vial) 4 mg IV Q6H PRN PRN Reason: Nausea Stop: 02/04/21 12:54 Polyethylene Glycol (Polyethylene (Miralax) 17 Gm Pack) 17 gm PO DAILY PRN PRN Reason: Constipation Stop: 02/04/21 12:54 Ranolazine (Ranolazine 500 Mg Er Tab) 500 mg PO BID [facility] Stop: 02/04/21 20:59 Last Admin: 01/06/21 07:57 Dose: 500 mg Documented by: PG Care Time/CCT Total # of Minutes Spent Total Time Spent with Patient: Total time spent is greater than 50% in coordination of care (as documented) at patient's floor/unit and/or counseling patient: Coding Level of Care Code 29661 Subseq Hosp Care Lvl 3 Diagnoses NSTEMI (non-ST elevated myocardial infarction) I21.4 Acute HFrEF (heart failure with reduced ejection fraction) I50.21 Cardiomyopathy I42.9 CAD (coronary artery disease) I25.10 S/P coronary artery stent placement Z95.5 Hypercholesteremia E78.00 Hypertension I10
--- NOTE | 2021-01-06 18:26 | Billing Data ---
Date of Service January 06, 2021 Coding Level of Care Code 64047 Subseq Hosp Care Lvl 3
--- NOTE | 2021-01-06 22:59 | Electrocardiogram Report ---
Test Reason : Blood Pressure : / mmHG Vent. Rate : 121 BPM Atrial Rate : 121 BPM P-R Int : 162 ms QRS Dur : 108 ms QT Int : 338 ms P-R-T Axes : 039 -12 074 degrees QTc Int : 479 ms Sinus tachycardia with frequent Premature ventricular complexes Cannot rule out Anteroseptal infarct , age undetermined Nonspecific ST and T wave abnormality Abnormal ECG When compared with ECG of 19-MAY-2018 14:33, Premature ventricular complexes are now Present Vent. rate has increased BY 50 BPM Minimal criteria for Anteroseptal infarct are now Present Nonspecific T wave abnormality now evident in Inferior leads Nonspecific T wave abnormality, worse in Lateral leads Confirmed by Manolo Calvo ([id number]) on 01/06/2021 10:58:58 PM Referred By: REFERRED SELF Confirmed By:Manolo Calvo
--- NOTE | 2021-01-06 23:02 | Electrocardiogram Report ---
Test Reason : Blood Pressure : / mmHG Vent. Rate : 115 BPM Atrial Rate : 115 BPM P-R Int : 178 ms QRS Dur : 112 ms QT Int : 318 ms P-R-T Axes : 035 -05 071 degrees QTc Int : 439 ms Sinus tachycardia with occasional Premature ventricular complexes Septal infarct (cited on or before 05-JAN-2021) Nonspecific ST and T wave abnormality Abnormal ECG When compared with ECG of 05-JAN-2021 07:58, No significant change Confirmed by Manolo Calvo ([id number]) on 01/06/2021 11:01:39 PM Referred By: REFERRED SELF Confirmed By:Manolo Calvo
[2021-01-07] MEDS: HEPARIN SODIUM/DEXTROSE 25,000 UNITS/500 ML BAG IV SCH (03:11)
[2021-01-07] MEDS ORDERED: diphenhydrAMINE 50 MG/ML VIAL IV ONE (04:37)
[2021-01-07 05:34] LABS: Basophils # (auto) 0.02 K/uL (0-0.2); Basophils % (auto) 0.2 %; Eosinophils # (auto) 0.09 K/uL (0-0.5); Eosinophils % (auto) 0.8 %; Hematocrit (blood only) 36.3 % (42-52); Hemoglobin 11.9 g/dL (14.0-18.0); Immature Granulocytes # (auto) 0.02 K/uL (0.00-0.02); Immature Granulocytes % (auto) 0.2 %; Lymphocytes # (auto) 0.92 K/uL (1.2-3.4); Mean Corpuscular Hgb Conc 32.8 g/dL (32-36); Mean Corpuscular Volume 97.6 fL (80-100); Mean Platelet Volume 9.6 fL (7.4-10.4); Monocytes # (auto) 1.13 K/uL (0.11-0.59); Monocytes % (auto) 9.8 %; Neutrophils # (auto) 9.35 K/uL (1.4-6.5); Platelet Count 206 K/uL (130-400); RDW Coefficient of Variation 16.3 % (11.5-14.5); Red Blood Count 3.72 M/uL (4.7-6.1); White Blood Count 11.53 K/uL (4.8-10.8)
--- NOTE | 2021-01-07 05:49 | Electrocardiogram Report ---
Test Reason : Blood Pressure : / mmHG Vent. Rate : 100 BPM Atrial Rate : 100 BPM P-R Int : 218 ms QRS Dur : 102 ms QT Int : 356 ms P-R-T Axes : 056 -19 -50 degrees QTc Int : 459 ms Sinus rhythm with 1st degree A-V block with occasional Premature ventricular complexes Septal infarct (cited on or before 05-JAN-2021) Nonspecific ST and T wave abnormality Abnormal ECG When compared with ECG of 05-JAN-2021 08:51, SD interval has increased Confirmed by Manolo Calvo ([id number]) on 01/07/2021 5:48:18 AM Referred By: REFERRED SELF Confirmed By:Manolo Calvo
[2021-01-07 05:51] LABS: Base Excess ABG 2.4 mEq/L (-9-1.8); HCO3 ABG 27 mmol/L (19-24); Oxygen Saturation ABG 97.6 % (90-95); PCO2 ABG 44 mmHg (35-46); PO2 ABG 102 mmHg (80-95); pH ABG 7.41 (7.35-7.45)
[2021-01-07 05:52] LABS: Allen Test Pos (Pos)
[2021-01-07 06:07] LABS: Partial Thromboplastin Ratio 1.8
[2021-01-07 06:08] LABS: BUN Creatinine Ratio 17.2 (10-20); Calcium 8.9 mg/dl (8.5-10.1); Creatinine Clr Calc Pharmacy 45.3 ml/min; Est GFR (African American) 49.5 ml/min; Est GFR (Non-African American) 42.7 ml/min; Potassium 4.1 mmol/L (3.5-5.1)
[2021-01-07 06:25] LABS: Partial Thromboplastin Time 46.1 Seconds (21.0-31.0)
[2021-01-07 06:48] LABS: Estimated Average Glucose 100 mg/dl; Hemoglobin A1C 5.1 % (4.5-5.6)
[2021-01-07] MEDS ORDERED: niCARdipine HCL INJ 2.5 MG/ML 10 ML AMP ONE (06:54)
[2021-01-07] MEDS ORDERED: MIDAZOLAM HCL 1 MG/ML 2ML VIAL ONE (06:54)
[2021-01-07] MEDS ORDERED: HEPARIN (PORCINE) 1000 UNIT/ML 10 ML (CATH LAB USE ONLY) ONE (06:54)
[2021-01-07] MEDS ORDERED: fentaNYL citrate 100 MCG/2 ML VIAL ONE (06:54)
[2021-01-07] MEDS ORDERED: NITROGLYCERIN/D5W 100MCG/ML 20ML SYR ONE (06:55)
--- NOTE | 2021-01-07 07:10 | Pre Anesthesia Assessment ---
Date of Service January 07, 2021 Pre Sedation Assessment Vital Signs Temp Pulse Pulse Resp BP Pulse Ox 01/07/21 04:09 37.1 C 103 H 18 117/72 90 01/06/21 23:31 37 C 93 H 114/80 91 01/06/21 22:20 106 H 01/06/21 20:05 37.0 C 99 H 24 114/75 96 01/06/21 16:00 36.5 C 84 18 110/71 93 01/06/21 12:58 36.6 C 97 H 16 100/65 96 01/06/21 08:37 36.7 C 96 H 18 101/66 97 Cardiovascular + tachycardic Respiratory normal respiratory effort, lungs clear to auscultation Pre-Sedation Airway Assessment Smoking Status: Former smoker Hx Sleep Apnea: No Short, Thick Neck: No Thyromental Distance: > or= 3.5 Finger Breadths Oral Cavity: + WNL Mallampati Class: III ASA: ASA3 NPO Status Date of Last Intake of Fluids: 01/06/21 Time of Last Intake of Fluids: 18:00 Date of Last Intake of Solid Food: 01/06/21 Time of Last Intake of Solid Foods: 18:00 Procedure Planning Contraindications for Sedation: none Current Medications Reviewed: Yes Notes The planned sedation has been discussed with the patient. Informed Consent was obtained. I have identified the patient, determined the appropriateness of sedation and have assessed the patient immediately prior to the procedure. All medicine(s) and interventions are by my order.
[2021-01-07 07:59] LABS: iSTAT Arterial Blood Gas HCO3 30 meg/L (19-24); iSTAT Arterial Blood Gas pCO2 56 mmHg (35-46); iSTAT Arterial Blood Gas pH 7.34 (7.35-7.45); iSTAT Arterial Blood Gas pO2 < 32 mmHg (80-95); iSTAT Carbon Dioxide 32 mmol/L (24-31)
--- NOTE | 2021-01-07 08:17 | Cardiac Catheterization ---
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 Closure Device: None-Manual Hold Recommendations: Management Recommendatons Cardiac Cath Procedure Full Procedure Date January 07, 2021 Pre-Procedure Diagnosis Pre-Procedure Diagnosis: CHF and Cardiomyopathy AUC Score AUC Score: 8 Post-Procedure Diagnosis Post-Procedure Diagnosis: Elevated Intracardiac Pressures Procedure(s) Performed Procedure(s) Performed: Right Heart Cath Medical Billing And Coding Specialist Manolo Calvo MD Machine Feller(s) Power Supply Engineer Estimated Blood Loss Estimated Blood Loss: <10 ml Medication(s) Medication(s): Fentanyl and Versed Summary of Findings Procedures: 1. Right heart catheterization 2. Moderate sedation Indication: 80-year-old gentleman with acute heart failure with reduced EF, cardiomyopathy, NSTEMI, and a history of multivessel CAD with circumflex PCI. Right heart catheterization: 1. PA pressure: 58/16 with a mean of 30 mmHg. 2. Pulmonary capillary wedge pressure: V wave 40 with a mean of 35 mmHg. 3. Right ventricular pressure: 58/7 with EDP of 25 mmHg. 4. Right atrial pressure: A-wave 23, V wave 22, mean 20 mmHg. 5. Cardiac output via thermodilution was 4.73 L/min with a cardiac index of 2.18 L/min/m. 6. Cardiac output via Annie was 4.63 L/min with a cardiac index of 2.13 L/min/m. 7. PVR 1.06 Wood units. Access site: 1. Left brachiocephalic vein. Moderate sedation: 1. Sedation start time: 7:34 AM 2. Sedation end time: 7:55 AM Procedural notes: 1. Plan was for right heart and left heart catheterization with coronary angiography today. While laying flat, he was audibly wheezing and hypoxic. He was placed on supplemental oxygen via mask at 5 L to maintain oxygen saturations in the lower 90s. Given his intolerance to laying flat, completed right heart catheterization. Left heart catheterization with coronary angiography was postponed as it was likely that he would require at least BiPAP to tolerate laying flat throughout the procedure. Therefore, given filling pressures significantly elevated, we will further diurese and consider coronary angiography later this hospitalization. Impression: 1. Significantly elevated left and right-sided filling pressures. 2. Pulmonary hypertension likely due to left heart failure. 3. Reduced cardiac output. Plan: 1. More aggressive diuresis. Hemodynamics Rest Ao:: n/a Final Ao: n/a LV: n/a Recommendations Recommendations: Management Recommendatons Specimens Specimens: None Radiation Exposure (mGy) 23 mGy. Fluoro time 1.2 min. Contrast (mls) 0 Procedural Complication(s) None Disposition PCU I attest to the content of the Intraoperative Record and any orders documented therein. Any exceptions are noted below. [facility] Card Cath Procedure Codes Cardiac Catheterization Procedure 1: Cardiovascular Cath Procedures: 22608 Right Heart Cath Moderate Sedation Procedure 1: Sedation/Anesthesia: 65892 Mod Sedation by the same physician;Init15 Min Child Age 5 & Up Procedure 2: Sedation/Anesthesia: 18195 Mod Sedation by the same physician; Ea [id number] Minutes PG Care Time/CCT Total # of Minutes Spent Total Time Spent with Patient: Total time spent is greater than 50% in coordination of care (as documented) at patient's floor/unit and/or counseling patient:
[2021-01-07] MEDS: RANOLAZINE 500 MG ER TAB PO SCH ×2 (08:49→20:58)
[2021-01-07] MEDS: CEROVITE ADV FORMULA TAB PO SCH (08:49)
[2021-01-07] MEDS: FUROSEMIDE 40 MG/4 ML VIAL IV SCH ×2 (08:50→16:46)
[2021-01-07] MEDS: ASPIRIN 81 MG ECTAB PO SCH (08:51)
[2021-01-07] MEDS: CLOPIDOGREL BISULFATE 75 MG TAB PO SCH (08:51)
[2021-01-07] MEDS: ATORVASTATIN 40 MG TAB PO SCH (08:51)
[2021-01-07] MEDS ORDERED: METOPROLOL SUCC 25MG EXT REL TAB PO SCH (09:00)
--- NOTE | 2021-01-07 09:00 | Post Anesthesia Assessment ---
Date of Service January 07, 2021 Post Sedation Assessment Vital Signs Temp Pulse Pulse Resp BP Pulse Ox 01/07/21 08:00 98 H 26 H 136/85 97 01/07/21 04:09 37.1 C 103 H 18 117/72 90 01/06/21 23:31 37 C 93 H 114/80 91 01/06/21 22:20 106 H 01/06/21 20:05 37.0 C 99 H 24 114/75 96 01/06/21 16:00 36.5 C 84 18 110/71 93 01/06/21 12:58 36.6 C 97 H 16 100/65 96 Recovery Score Activity: Moves 4 extremities Respiration: Deep Breath/Cough Circulation: +/-20% PreAnes Value Consciousness: Fully Awake Oxygen Saturation: O2 needed for >90% Post Anesthesia Score: 9 Discharge Sedation Level of Care: Fast Track Phase II Post Sedation Plan On clinical assessment, the patient appears to have tolerated the sedation without complications. Patient is recovering as anticipated. Patient will continue to be monitored by nursing and may be discharged when sedation discharge criteria are met per below protocol. Upon Completions of procedure up to 15 minutes continue every 5 minute vital signs and the P.A.R. score; then discharge to a Phase I or Fast Track to Phase II per the following guidelines: * Discharge Patient to appropriate Phase II area if PAR is 8 or greater or return to pre- procedure baseline. The post - procedure orders will be as directed. * If PAR score is less than 8 or not return to pre-procedure baseline then patient will follow Phase I monitoring till PAR is reached for Phase II. The Phase I may be done in procedure room or may call to secure a Phase I area. * If naloxone or flumazenil are used for reversal, hold in Phase I for continued monitoring from when last reversal dose was given for a minimum of 60 minutes or longer pending the nurse and/or physician discretion of patient condition before discharge to Phase II. Please call the Sedation Physician to re-evaluate and complete post-note for discharge to Phase II area. Do NOT discharge from procedure sedation or Phase 1 until post- sedation evaluation note is complete by procedure /sedation MD Sedation Discharge Instructions to be given to the patient at discharge to home.
--- NOTE | 2021-01-07 09:08 | Cardiology Progress Note ---
Date of Service January 07, 2021 Assessment & Plan (1) NSTEMI (non-ST elevated myocardial infarction): (2) Acute HFrEF (heart failure with reduced ejection fraction): (3) Cardiomyopathy: (4) CAD (coronary artery disease): (5) S/P coronary artery stent placement: (6) Hypercholesteremia: (7) Hypertension: Plan: ASSESSMENT/PLAN: 1. NSTEMI: No further angina. Peak troponin 4.66. Continue aspirin. Heparin drip can be discontinued after 48 hours of treatment. Monitor for bleeding. Cardiac catheterization when CHF improved and able to lay flat. 2. Acute heart failure with reduced EF: He appeared improved yesterday but less so today. Significantly elevated left and right-sided filling pressures during right heart catheterization today. Increase Lasix to 80 mg IV b.i.d.. Would aim for at least 1L negative net fluid balance today. If not working towards that, would consider adding a dose of IV diuril before evening dose of Lasix. If creatinine becomes more elevated than urine output does not improve, would consider low-dose dobutamine for inotropic support. Recommend BiPAP currently. Low-sodium diet. Strict I&Os. Daily weights. Will discontinue metoprolol succinate for now given current CHF status. Would recommend Entresto at some point. Recommend heart failure program. Consider spironolactone if renal function does not significantly become elevated. 3. CAD s/p circumflex PCI: No further angina. Plan as above. Continue aspirin. High-intensity statin therapy. LAD known to be occluded but fills distally via [id number] collaterals from the circumflex. 4. Cardiomyopathy: Significant reduction in LV systolic function. Given known multivessel CAD, likely ischemic in origin. Cardiac catheterization when CHF improved. 5. Hypertension: Blood pressure well controlled. Continue current regimen. 6. Dyslipidemia: Continue high-intensity statin therapy. 7. Disposition: Cardiology will continue to follow along. Patient care discussed with Dr. Berg of the primary hospitalist service. Patient's son, Terrell arriaza, was contacted via telephone and he was updated on overall plan and the fact that coronary angiography was not completed. Right heart catheterization findings were discussed with him. He was made aware that his father is quite ill. Heart failure program. Follow-up with Dr. Angeles, primary meat hostess, on discharge. Admission and Anticipated Discharge Date Admission Date: January 05, 2021 Subjective Patient was seen this morning prior to cardiac catheterization and also following. Prior to catheterization, he reported dyspnea with exertion but no significant orthopnea. He did not try to lay flat however. While in the catheterization lab, he became more short of breath while laying flat. He had a wedge to help elevate his head but not nearly as elevated as he had been sitting in his bed prior. He received minimal sedation in the form of fentanyl 25 mcg and Versed 1 mg. He was audibly wheezing. He was on supplemental oxygen via mask 5 L prior to catheterization and required such to maintain oxygen saturation in the low 90s during the procedure. Given his inability to lay flat, the decision was made to perform right heart catheterization to help guide management but postpone left heart catheterization and angiography. Following right heart catheterization, while sitting in his usual hospital room more upright, his wheezing was much improved. He remains short of breath however and mildly tachypneic. He denies chest pain, syncope, near-syncope, palpitations, or bleeding. Review of systems: As above. Physical Exam Physical Exam: Gen.: No acute distress. Alert and oriented. HEENT: Anicteric sclera. Neck: Thick neck. Cardiac: PMI was nondisplaced. No ventricular heave. Regular. Normal S1-S2. No murmurs, rubs, or gallops. Pulmonary: Decreased breath sounds throughout and rales noted bilaterally. Abdomen: Soft, nontender, nondistended, with normoactive bowel sounds. No bruits noted. Extremities: 2+ radial pulses bilaterally. 2+ posterior tibialis pulses bilaterally. Trace bilateral lower extremity edema. No cyanosis. Psychiatric: Affect appears appropriate. Results & Data ([facility]) Vital Signs (Past 12 Hours) Vital Signs Temp Pulse Pulse Resp BP Pulse Ox 01/07/21 08:00 98 H 26 H 136/85 97 01/07/21 04:09 37.1 C 103 H 18 117/72 90 01/06/21 23:31 37 C 93 H 114/80 91 01/06/21 22:20 106 H Intake & Output 01/05/21 01/06/21 01/07/21 01/08/21 06:59 06:59 06:59 06:59 Intake Total 1525.600 / 9501.501 4898.534 / 1024.534 Output Total 2049 1201 / 1201 Balance -524.400 / -524.400 -176.466 / -176.466 Weight 220 lb 7.396 oz 218 lb 11.177 oz Laboratory Results Laboratory Results - last 24 hr 01/06/21 01/06/21 01/06/21 03:48 11:53 12:40 WBC RBC Hgb Hct MCV MCH MCHC RDW Std Deviation RDW Coeff of Tommy Plt Count MPV Immature Gran % (Auto) Neut % (Auto) Lymph % (Auto) Livingston % (Auto) Eos % (Auto) Baso % (Auto) Neut # (Auto) Lymph # (Auto) Livingston # (Auto) Eos # (Auto) Baso # (Auto) Immature Gran # (Auto) APTT 48.5 H* PTT Ratio 1.8 POC pH POC pCO2 POC pO2 POC HCO3 POC Total CO2 POC Base Excess ABG pH ABG pCO2 ABG pO2 ABG HCO3 POC ABG O2 Sat ABG O2 Saturation ABG Base Excess Lexx Test Barometric Pressure Oxygen Given Sodium Potassium Chloride Carbon Dioxide Anion Gap BUN Creatinine Est Cr Clr Drug Dosing Est GFR ( Amer) Est GFR (Non-Af Amer) BUN/Creatinine Ratio Glucose Estimat Average Glucose 100 Hemoglobin A1c 5.1 Calcium Troponin I 3.750 H* 01/07/21 01/07/21 01/07/21 05:23 05:23 05:23 WBC 11.53 H RBC 3.72 L Hgb 11.9 L Hct 36.3 L MCV 97.6 MCH 32.0 MCHC 32.8 RDW Std Deviation 58.0 H RDW Coeff of Tommy 16.3 H Plt Count 206 MPV 9.6 Immature Gran % (Auto) 0.2 Neut % (Auto) 81.0 Lymph % (Auto) 8.0 Livingston % (Auto) 9.8 Eos % (Auto) 0.8 Baso % (Auto) 0.2 Neut # (Auto) 9.35 H Lymph # (Auto) 0.92 L Livingston # (Auto) 1.13 H Eos # (Auto) 0.09 Baso # (Auto) 0.02 Immature Gran # (Auto) 0.02 APTT 46.1 H* PTT Ratio 1.8 POC pH POC pCO2 POC pO2 POC HCO3 POC Total CO2 POC Base Excess ABG pH ABG pCO2 ABG pO2 ABG HCO3 POC ABG O2 Sat ABG O2 Saturation ABG Base Excess Lexx Test Barometric Pressure Oxygen Given Sodium 138 Potassium 4.1 Chloride 101 Carbon Dioxide 30 Anion Gap 7.0 BUN 26 H Creatinine 1.51 H Est Cr Clr Drug Dosing 45.3 Est GFR ( Amer) 49.5 Est GFR (Non-Af Amer) 42.7 BUN/Creatinine Ratio 17.2 Glucose 154 H Estimat Average Glucose Hemoglobin A1c Calcium 8.9 Troponin I 01/07/21 01/07/21 05:23 07:46 WBC RBC Hgb Hct MCV MCH MCHC RDW Std Deviation RDW Coeff of Tommy Plt Count MPV Immature Gran % (Auto) Neut % (Auto) Lymph % (Auto) Livingston % (Auto) Eos % (Auto) Baso % (Auto) Neut # (Auto) Lymph # (Auto) Livingston # (Auto) Eos # (Auto) Baso # (Auto) Immature Gran # (Auto) APTT PTT Ratio POC pH 7.34 L POC pCO2 56 H POC pO2 < 32 L POC HCO3 30 H POC Total CO2 32 H POC Base Excess 4.0 H ABG pH 7.41 ABG pCO2 44 ABG pO2 102 H ABG HCO3 27 H POC ABG O2 Sat 55.0 L ABG O2 Saturation 97.6 H ABG Base Excess 2.4 H Lexx Test Pos Barometric Pressure 726.0 Oxygen Given 5L Sodium Potassium Chloride Carbon Dioxide Anion Gap BUN Creatinine Est Cr Clr Drug Dosing Est GFR ( Amer) Est GFR (Non-Af Amer) BUN/Creatinine Ratio Glucose Estimat Average Glucose Hemoglobin A1c Calcium Troponin I Diagnostic Findings Telemetry personally reviewed: No arrhythmia. Sinus rhythm. Right heart catheterization 01/07/2021: 1. PA pressure: 58/16 with a mean of 30 mmHg. 2. Pulmonary capillary wedge pressure: V wave 40 with a mean of 35 mmHg. 3. Right ventricular pressure: 58/7 with EDP of 25 mmHg. 4. Right atrial pressure: A-wave 23, V wave 22, mean 20 mmHg. 5. Cardiac output via thermodilution was 4.73 L/min with a cardiac index of 2.18 L/min/m. 6. Cardiac output via Annie was 4.63 L/min with a cardiac index of 2.13 L/min/m. 7. PVR 1.06 Wood units. Medications Administered Current Inpatient Medications Acetaminophen (Acetaminophen 325 Mg Tab) 650 mg PO Q4H PRN PRN Reason: Pain or Fever Stop: 02/04/21 12:54 Aspirin (Aspirin 81 Mg Ectab) 81 mg PO DAILY [facility] Stop: 02/05/21 08:59 Last Admin: 01/07/21 08:51 Dose: 81 mg Documented by: Atorvastatin Calcium (Atorvastatin 40 Mg Tab) 40 mg PO QAM [facility] Stop: 02/05/21 08:59 Last Admin: 01/07/21 08:51 Dose: 40 mg Documented by: Clopidogrel Bisulfate (Clopidogrel Bisulfate 75 Mg Tab) 75 mg PO DAILY [facility] Stop: 02/05/21 08:59 Last Admin: 01/07/21 08:51 Dose: 75 mg Documented by: Furosemide (Furosemide 40 Mg/4 Ml Vial) 80 mg IV BID17 [facility] Stop: 02/06/21 08:59 Last Admin: 01/07/21 08:50 Dose: 80 mg Documented by: Heparin Sodium/Dextrose (Heparin Sodium/Dextrose) 25,000 units in 500 mls @ 26 mls/hr IV .[id number] [facility]; Protocol Stop: 02/04/21 09:29 Last Admin: 01/07/21 03:11 Dose: 1,300 units/hr, 26 mls/hr Documented by: Multivitamins/Minerals (Cerovite Adv Formula Tab) 1 tab PO [facility] Stop: 02/05/21 08:59 Last Admin: 01/07/21 08:49 Dose: 1 tab Documented by: Nitroglycerin (Nitroglycerin Sl 0.4 Mg/Tab Tab) 0.4 mg SL UD PRN PRN Reason: Chest Pain Stop: 02/04/21 12:54 Ondansetron HCl (Ondansetron Inj 2 Mg/Ml 2 Ml Vial) 4 mg IV Q6H PRN PRN Reason: Nausea Stop: 02/04/21 12:54 Polyethylene Glycol (Polyethylene (Miralax) 17 Gm Pack) 17 gm PO DAILY PRN PRN Reason: Constipation Stop: 02/04/21 12:54 Ranolazine (Ranolazine 500 Mg Er Tab) 500 mg PO BID [facility] Stop: 02/04/21 20:59 Last Admin: 01/07/21 08:49 Dose: 500 mg Documented by: PG Care Time/CCT Total # of Minutes Spent Total Time Spent with Patient: Total time spent is greater than 50% in coordination of care (as documented) at patient's floor/unit and/or counseling patient: Coding Level of Care Code 19481 Subseq Hosp Care Lvl 3 Diagnoses NSTEMI (non-ST elevated myocardial infarction) I21.4 Acute HFrEF (heart failure with reduced ejection fraction) I50.21 Cardiomyopathy I42.9 CAD (coronary artery disease) I25.10 S/P coronary artery stent placement Z95.5 Hypercholesteremia E78.00 Hypertension I10
--- NOTE | 2021-01-07 10:13 | Hospitalist Progress Note ---
Date of Service January 07, 2021 Assessment & Plan (1) NSTEMI (non-ST elevated myocardial infarction): Plan: Mr. Allen is a 80yo male with a PMHx of CAD w/ PCI, recuts sheath hematoma embolization, HTN, HLD, and prostate cancer who presented to the ER for SOB. 1) Acute Hypoxic Respiratory Failure sec to CHF - Decreased O2 Sat during heart cath with dyspnea - ABG mildly elevated bicarb, otherwise normal - Current O2 Sat 95 on BiPAP 2) Acute Exacerbation of Chronic Systolic CHF - Echo: EF 20-25%, significant wall motion abnormalities - Increased lasix to 80mg BID - Monitor strict I&O, trend BMP - Cardio wants net balance of negative 1L today before repeating cath - Hold b jennifer due to acute exacerbation. holding losartan due to low bP 3) NSTEMI - ER: Chest tightness. Troponin elevated 1.85 --> 4.6 --> 3.7, peaked - ASA 324mg PO given in ER, continue 81mg PO daily - Heparin drip changed to Heparin 5000u SQ BID. - Started on metoprolol 25mg qAM - but now on hold - holding losartan - nitro PRN - LDL 67 in August, no need to repeat this, given age LDL at goal will continue on home atorvastatin 40mg PO daily - TTE: EF 20-25%, significant wall motion abnormalities - Cath performed (01/07), stopped after right heart due to dyspnea and low O2, will continue diuresis and stabilize patient before performing left heart cath. 4) CAD -LCx SEBASTIAN, September 2015 -As above, cont. ASA, plavix, and ranexa -hold losartan due to low BP 5) Rectus sheath hematoma: - Recent history with repair after coughing spell. Had embolization of interior epigastric artery @ [facility] [place] on December 11. - No signs of bleeding 6) Hypertension: - cont. metoprolol - Hold losartan due to low BP and to allow for increasing Lasix dosing. 7) Prostate cancer: -s/p prostatectomy 20 years ago but with detectable PSA. Under surveillance with urology. Previous on Lupron injections. VTE Prophylaxis: Heparin 5000u SQ BID Diet: heart healthy, low Na, Fluid restricted Code: DNI/DNR Disposition: PCU Admission and Anticipated Discharge Date Admission Date: January 05, 2021 Supervising Physician Co-Signing Physician Notes Resident Physician Supervision Note: I independently interviewed and examined the patient and verified the gregory history and physical, reviewed labs and image studies and agree with resident Dr. Madsen findings and care plan. Subjective No overnight events. Went in for heart cath today, became dyspneic with lower O2 levels. Right heart cath completed, procedure stopped before left heart cath performed. Continues to have SOB, less so than during the procedure. Otherwise no acute complaints. Review of Systems 2 Constitutional: no fever, no chills and no fatigue Respiratory: + dyspnea (s/p right heart cath even when laying down); no cough Cardiovascular: no chest pain and no palpitations Gastrointestinal: no abdominal pain Physical Exam Constitutional: WD/WN, vitals as above + obese Eyes: PERRL, conjunctivae normal, anicteric sclerae ENMT: external ear and nose normal, oropharynx normal Neck: trachea midline, no thyromegaly Respiratory: + labored breathing and + tachypneic; + abnormal respiratory effort Auscultation: no crackles and no rales Cardiovascular: RRR, no murmur, no edema Gastrointestinal (Abdomen): normal bowel sounds, soft, nontender, no hepatosplenomegaly Psychiatric: A+Ox3, euthymic affect Results & Data Results & Data ([facility]) Vital Signs (Past 12 Hours) Vital Signs Temp Pulse Pulse Resp BP Pulse Ox 01/07/21 09:37 102 H 01/07/21 09:31 103 H 27 H 97 01/07/21 09:00 86 13 109/75 97 01/07/21 08:45 117 H 129/74 01/07/21 08:30 36.8 C 99 H 18 122/78 97 01/07/21 08:00 98 H 26 H 136/85 97 01/07/21 04:09 37.1 C 103 H 18 117/72 90 01/06/21 23:31 37 C 93 H 114/80 91 01/06/21 22:20 106 H Resident Activity Tracking Resident Involvement: Resident Care Provided Care Provided: [facility]
[2021-01-07] MEDS: LOSARTAN POTASSIUM 25 MG TAB PO SCH (12:47)
[2021-01-07] MEDS: HEPARIN SOD 5,000 UNIT/0.5 ML VIAL SQ SCH (20:58)
[2021-01-08 06:38] LABS: Basophils # (auto) 0.01 K/uL (0-0.2); Basophils % (auto) 0.1 %; Eosinophils # (auto) 0.22 K/uL (0-0.5); Eosinophils % (auto) 3.1 %; Hematocrit (blood only) 35.4 % (42-52); Hemoglobin 11.5 g/dL (14.0-18.0); Immature Granulocytes # (auto) 0.02 K/uL (0.00-0.02); Immature Granulocytes % (auto) 0.3 %; Lymphocytes # (auto) 1.14 K/uL (1.2-3.4); Mean Corpuscular Hemoglobin 31.8 pg (25-34); Mean Corpuscular Hgb Conc 32.5 g/dL (32-36); Mean Corpuscular Volume 97.8 fL (80-100); Mean Platelet Volume 10.2 fL (7.4-10.4); Monocytes # (auto) 0.72 K/uL (0.11-0.59); Monocytes % (auto) 10.1 %; Neutrophils # (auto) 5.02 K/uL (1.4-6.5); Neutrophils % (auto) 70.4 %; Platelet Count 187 K/uL (130-400); RDW Coefficient of Variation 15.7 % (11.5-14.5); RDW Standard Deviation 56.8 fL (36.4-46.3); Red Blood Count 3.62 M/uL (4.7-6.1); White Blood Count 7.13 K/uL (4.8-10.8)
--- NOTE | 2021-01-08 06:53 | Hospitalist Progress Note ---
Date of Service January 08, 2021 Assessment & Plan (1) NSTEMI (non-ST elevated myocardial infarction): Plan: Mr. Allen is a 80yo male with a PMHx of CAD w/ PCI, recuts sheath hematoma embolization, HTN, HLD, and prostate cancer who presented to the ER for SOB. # Acute Hypoxic Respiratory Failure sec to CHF - Decreased O2 Sat during heart cath (01/07) with dyspnea - ABG (01/07) mildly elevated bicarb, otherwise normal - Current O2 Sat 94 on 2L NC, improving # Acute Exacerbation of Chronic Systolic CHF - Echo: EF 20-25%, significant wall motion abnormalities - cont. lasix to 80mg BID - Monitor strict I&O (-2.1L balance last 24 hours), trend BMP - appreciated cardio consult, f/u for left heart cath - Hold beta jennifer due to acute exacerbation. - Hold losartan due to low BP. # NSTEMI - ER: Chest tightness. Troponin elevated 1.85 --> 4.6 --> 3.7, peaked - ASA 324mg PO given in ER, continue 81mg PO daily - Metoprolol 25mg qAM - cont. hold - holding losartan - nitro PRN - LDL 67 in August, no need to repeat this, given age LDL at goal will continue on home atorvastatin 40mg PO daily - TTE: EF 20-25%, significant wall motion abnormalities - Cath performed (01/07), stopped after right heart due to dyspnea and low O2 - Will continue diuresis and stabilize patient before performing left heart cath - NPO midnight, possible cath tomorrow # CAD -LCx SEBASTIAN, September 2015 -As above, cont. ASA, plavix, and ranexa # CKD - 3 -Following renal function while diuresing. -creatinine improved to 1.23 from 1.5 on admission. # Rectus sheath hematoma: - Recent history with repair after coughing spell. Had embolization of interior epigastric artery @ [facility] [place] on December 11. - No signs of bleeding # Hypertension: - cont. metoprolol - Hold losartan due to low BP and to allow for increasing Lasix dosing. # Prostate cancer: -s/p prostatectomy 20 years ago but with detectable PSA. Under surveillance with urology. Previous on Lupron injections. VTE Prophylaxis: Heparin 5000u SQ BID Diet: heart healthy, low Na, Fluid restricted; NPO midnight Code: DNI/DNR Disposition: PCU Admission and Anticipated Discharge Date Admission Date: January 05, 2021 Supervising Physician Co-Signing Physician Notes Resident Physician Supervision Note: I independently interviewed and examined the patient and verified the gregory history and physical, reviewed labs and image studies and agree with resident Dr. Madsen findings and care plan. Subjective Feeling much better today than yesterday. Breathing less difficulty and says that he urinated alot yesterday. In good spirits, no acute complaints today. Review of Systems Constitutional: no fever, no chills and no fatigue Respiratory: + dyspnea (mild); no cough Cardiovascular: no chest pain and no palpitations Gastrointestinal: no abdominal pain Physical Exam Constitutional: WD/WN, vitals as above + obese Eyes: PERRL, conjunctivae normal, anicteric sclerae ENMT: external ear and nose normal, oropharynx normal Neck: trachea midline, no thyromegaly Respiratory: normal respiratory effort, lungs clear to auscultation + tachypneic; + abnormal respiratory effort and no labored breathing Auscultation: no crackles and no rales Cardiovascular: RRR, no murmur, no edema Gastrointestinal (Abdomen): normal bowel sounds, soft, nontender, no hepatosplenomegaly Psychiatric: A+Ox3, euthymic affect Results & Data Results & Data ([facility]) Vital Signs (Past 12 Hours) Vital Signs Temp Pulse Pulse Resp BP BP Pulse Ox 01/08/21 06:00 36.5 C 90 18 105/72 97 01/07/21 23:00 87 01/07/21 22:45 36.7 C 80 18 111/60 97 01/07/21 19:30 37.1 C 61 24 103/60 97 Resident Activity Tracking Resident Involvement: Resident Care Provided Care Provided: Adult Hospital Medicine
[2021-01-08 07:17] LABS: BUN Creatinine Ratio 20.4 (10-20); Calcium 8.9 mg/dl (8.5-10.1); Creatinine Clr Calc Pharmacy 54.5 ml/min; Est GFR (African American) 63.4 ml/min; Est GFR (Non-African American) 54.7 ml/min; Potassium 3.6 mmol/L (3.5-5.1)
[2021-01-08] MEDS: ATORVASTATIN 40 MG TAB PO SCH (09:37)
[2021-01-08] MEDS: RANOLAZINE 500 MG ER TAB PO SCH ×2 (09:37→20:19)
[2021-01-08] MEDS: ASPIRIN 81 MG ECTAB PO SCH (09:37)
[2021-01-08] MEDS: HEPARIN SOD 5,000 UNIT/0.5 ML VIAL SQ SCH ×2 (09:37→20:19)
[2021-01-08] MEDS: LOSARTAN POTASSIUM 25 MG TAB PO SCH (09:37)
[2021-01-08] MEDS: CLOPIDOGREL BISULFATE 75 MG TAB PO SCH (09:37)
[2021-01-08] MEDS: FUROSEMIDE 40 MG/4 ML VIAL IV SCH ×2 (09:37→17:35)
[2021-01-08] MEDS: CEROVITE ADV FORMULA TAB PO SCH (09:38)
--- NOTE | 2021-01-08 13:26 | Cardiology Progress Note ---
Date of Service January 08, 2021 Assessment & Plan (1) NSTEMI (non-ST elevated myocardial infarction): (2) Acute HFrEF (heart failure with reduced ejection fraction): (3) Cardiomyopathy: (4) CAD (coronary artery disease): (5) S/P coronary artery stent placement: (6) Hypercholesteremia: (7) Hypertension: Plan: ASSESSMENT/PLAN: 1. NSTEMI: No further angina. Peak troponin 4.66. Continue aspirin. Heparin drip can be discontinued after 48 hours of treatment. Monitor for bleeding. Left heart catheterization when CHF improved and able to lay flat (likely 01/10?). 2. Acute heart failure with reduced EF: He appears significantly improved since yesterday. Significantly elevated left and right-sided filling pressures during right heart catheterization. He's responding well to his current diuretic dose. Continue Lasix to 80 mg IV b.i.d.. Would aim for at least 1L negative net fluid balance today. If creatinine becomes more elevated than urine output does not improve, would consider low-dose dobutamine for inotropic support. Low-sodium diet. Strict I&Os. Daily STANDING weights. Metoprolol succinate on hold for now given current CHF status. Hypotensive today, may consider restarting tomorrow if improving. Would recommend Entresto at some point. Agreeable to heart failure program. Consider spironolactone if renal function does not significantly become elevated. 3. CAD s/p circumflex PCI: No further angina. Plan as above. Continue aspirin. High-intensity statin therapy. LAD known to be occluded but fills distally via [id number] collaterals from the circumflex. 4. Cardiomyopathy: Significant reduction in LV systolic function. Given known multivessel CAD, likely ischemic in origin. Cardiac catheterization when CHF improved. 5. Hypertension: Blood pressure well controlled. Continue current regimen. 6. Dyslipidemia: Continue high-intensity statin therapy. 7. Disposition: Cardiology will continue to follow along. Plan discussed with Dr. Berg of the primary hospitalist service. Heart failure program. Follow-up with Dr. Angeles, primary mortgage field inspector, on discharge. Admission and Anticipated Discharge Date Admission Date: January 05, 2021 Subjective Patient reports he's feeling significantly improved today. He admits to significant urine output since yesterday. His breathing is improving. He's down to 3L O2. He is lying comfortably with his head slightly elevated at the time of my visit. He reports he slept 6 hours last night which is the best he's slept in weeks. He denies cough, chest pain, palpitations. He is negative > 2 L overnight. Total net -3.6L for the admission. Weight is trending down to 209 lb. Kidney function and electrolytes stable on Lasix 80 mg IV BID. Physical Exam Physical Exam: Gen.: No acute distress. Alert and oriented. HEENT: Anicteric sclera. Neck: Thick neck. Cardiac: PMI was nondisplaced. No ventricular heave. Regular. Normal S1-S2. No murmurs, rubs, or gallops. Pulmonary: Decreased breath sounds at the bases and rales noted R>L. Abdomen: Soft, nontender, nondistended, with normoactive bowel sounds. No bruits noted. Extremities: 2+ radial pulses bilaterally. 2+ posterior tibialis pulses bilaterally. Trace bilateral lower extremity edema. No cyanosis. Psychiatric: Affect appears appropriate. Results & Data ([facility]) Vital Signs (Past 12 Hours) Vital Signs Temp Pulse Pulse Resp BP Pulse Ox Pulse Ox 01/08/21 11:05 98.1 F 72 19 106/65 95 01/08/21 08:06 98.1 F 85 21 111/74 96 01/08/21 08:00 87 96 01/08/21 06:00 97.7 F 90 18 105/72 97 PG Care Time/CCT Total # of Minutes Spent Total Time Spent with Patient: Total time spent is greater than 50% in coordination of care (as documented) at patient's floor/unit and/or counseling patient: Coding Level of Care Code 41980 Subseq Hosp Care Lvl 3 Diagnoses NSTEMI (non-ST elevated myocardial infarction) I21.4 Acute HFrEF (heart failure with reduced ejection fraction) I50.21 Cardiomyopathy I42.9 CAD (coronary artery disease) I25.10 S/P coronary artery stent placement Z95.5 Hypercholesteremia E78.00 Hypertension I10
[2021-01-09 06:19] LABS: Basophils # (auto) 0.02 K/uL (0-0.2); Basophils % (auto) 0.3 %; Eosinophils # (auto) 0.32 K/uL (0-0.5); Eosinophils % (auto) 5.2 %; Hematocrit (blood only) 36.2 % (42-52); Hemoglobin 11.8 g/dL (14.0-18.0); Lymphocytes % (auto) 16.2 %; Mean Corpuscular Hemoglobin 31.5 pg (25-34); Mean Corpuscular Hgb Conc 32.6 g/dL (32-36); Mean Corpuscular Volume 96.5 fL (80-100); Monocytes % (auto) 11.3 %; Neutrophils # (auto) 4.14 K/uL (1.4-6.5); Platelet Count 190 K/uL (130-400); RDW Coefficient of Variation 15.5 % (11.5-14.5); RDW Standard Deviation 54.5 fL (36.4-46.3); Red Blood Count 3.75 M/uL (4.7-6.1); White Blood Count 6.18 K/uL (4.8-10.8)
[2021-01-09 06:58] LABS: BUN Creatinine Ratio 22.4 (10-20); Calcium 8.9 mg/dl (8.5-10.1); Creatinine Clr Calc Pharmacy 47.4 ml/min; Est GFR (African American) 53.8 ml/min; Est GFR (Non-African American) 46.4 ml/min; Potassium 3.4 mmol/L (3.5-5.1)
--- NOTE | 2021-01-09 07:47 | Hospitalist Progress Note ---
Date of Service January 09, 2021 Assessment & Plan (1) NSTEMI (non-ST elevated myocardial infarction): Plan: Mr. Allen is a 80yo male with a PMHx of CAD w/ PCI, recuts sheath hematoma embolization, HTN, HLD, and prostate cancer who presented to the ER for SOB. # Acute Hypoxic Respiratory Failure sec to CHF - Decreased O2 Sat during heart cath (01/07) with dyspnea - ABG (01/07) mildly elevated bicarb, otherwise normal - Improving # Acute Exacerbation of Chronic Systolic CHF - Echo: EF 20-25%, significant wall motion abnormalities - cont. lasix to 80mg BID - Monitor strict I&O,, trend BMP - Hold beta jennifer due to acute exacerbation. - Hold losartan due to low BP. # NSTEMI - ER: Chest tightness. Troponin elevated 1.85 --> 4.6 --> 3.7, peaked - ASA 324mg PO given in ER, continue 81mg PO daily - Metoprolol 25mg qAM - cont. hold - holding losartan - nitro PRN - atorvastatin 40mg PO daily - TTE: EF 20-25%, significant wall motion abnormalities - C in am # CAD -LCx SEBASTIAN, September 2015 -As above, cont. ASA, plavix, and ranexa. metoprolol and losartan on hold # CKD - 3 -Following renal function while diuresing. -creatinine improved to 1.23 from 1.5 on admission. # Rectus sheath hematoma: - Recent history with repair after coughing spell. [place] [facility] [place] - No signs of bleeding # Hypertension: - cont. metoprolol - Hold losartan due to low BP and to allow for increasing Lasix dosing. # Prostate cancer: -s/p prostatectomy 20 years ago but with detectable PSA. Under surveillance with urology. Previous on Lupron injections. VTE Prophylaxis: Heparin 5000u SQ BID Diet: heart healthy, low Na, Fluid restricted; NPO midnight Code: DNI/DNR Disposition: PCU Admission and Anticipated Discharge Date Admission Date: January 05, 2021 Supervising Physician Co-Signing Physician Notes Resident Physician Supervision Note: (Date of service 01/09/2021) I independently interviewed and examined the patient and verified the gregory history and physical, reviewed labs and image studies and agree with resident Dr. Madsen findings and care plan. Subjective No overnight events. Laying comfortably in bed without oxygen. Had cath this morning. No acute complaints. Review of Systems Constitutional: no fever, no chills and no fatigue Respiratory: no cough and no dyspnea (mild) Cardiovascular: no chest pain and no palpitations Gastrointestinal: no abdominal pain Physical Exam Constitutional: WD/WN, vitals as above + obese Eyes: PERRL, conjunctivae normal, anicteric sclerae ENMT: external ear and nose normal, oropharynx normal Neck: trachea midline, no thyromegaly Respiratory: normal respiratory effort, lungs clear to auscultation normal respiratory effort; no labored breathing and not tachypneic Auscultation: no crackles and no rales Cardiovascular: RRR, no murmur, no edema Gastrointestinal (Abdomen): normal bowel sounds, soft, nontender, no hepatosplenomegaly Psychiatric: A+Ox3, euthymic affect Results & Data Results & Data ([facility]) Vital Signs (Past 12 Hours) Vital Signs Temp Pulse Pulse Resp BP Pulse Ox 01/09/21 07:41 36.4 C L 75 16 118/73 95 01/09/21 03:34 37 C 87 18 106/69 95 01/08/21 23:21 37.0 C 75 18 100/62 97 01/08/21 23:00 90 Resident Activity Tracking Resident Involvement: Resident Care Provided Care Provided: Adult Hospital Medicine
[2021-01-09] MEDS: ASPIRIN 81 MG ECTAB PO SCH (07:59)
[2021-01-09] MEDS: ATORVASTATIN 40 MG TAB PO SCH (07:59)
[2021-01-09] MEDS: CEROVITE ADV FORMULA TAB PO SCH (07:59)
[2021-01-09] MEDS: RANOLAZINE 500 MG ER TAB PO SCH ×2 (07:59→21:37)
[2021-01-09] MEDS: FUROSEMIDE 40 MG/4 ML VIAL IV SCH (08:00)
[2021-01-09] MEDS: HEPARIN SOD 5,000 UNIT/0.5 ML VIAL SQ SCH ×3 (08:00→21:37)
[2021-01-09] MEDS: CLOPIDOGREL BISULFATE 75 MG TAB PO SCH (08:00)
--- NOTE | 2021-01-09 13:21 | Cardiology Progress Note ---
Date of Service January 09, 2021 Assessment & Plan (1) NSTEMI (non-ST elevated myocardial infarction): (2) Acute HFrEF (heart failure with reduced ejection fraction): (3) Cardiomyopathy: (4) CAD (coronary artery disease): (5) S/P coronary artery stent placement: (6) Hypercholesteremia: (7) Hypertension: Plan: ASSESSMENT/PLAN: 1. NSTEMI: No angina since presentation. Peak troponin 4.66. Continue aspirin. Chronically on dual anti-platelet therapy. Cardiac catheterization tomorrow. NPO after midnight. 2. Acute heart failure with reduced EF: Much improved. Appears near euvolemic. Will hold this evening's dose of Lasix in anticipation of cardiac catheterization tomorrow with labs this suggest possible azotemia. Continue losartan. Anticipate initiating Entresto in place of losartan. Likely start beta-jennifer tomorrow. Diuretic route and dosing to be determined after cardiac catheterization tomorrow. Spironolactone considered before discharge. 3. CAD s/p circumflex PCI: No further angina. Plan as above. Continue aspirin. High-intensity statin therapy. LAD known to be occluded but fills distally via [id number] collaterals from the circumflex. 4. Cardiomyopathy: Significant reduction in LV systolic function. Given known multivessel CAD, likely ischemic in origin. Cardiac catheterization likely tomorrow. 5. Hypertension: Blood pressure well controlled. Continue current regimen. 6. Dyslipidemia: Continue high-intensity statin therapy. 7. Disposition: Cardiology will continue to follow along. Patient care communicated with Lisa Boone of the Heart failure program. Follow-up with Dr. Angeles, primary manager energy, on discharge. Admission and Anticipated Discharge Date Admission Date: January 05, 2021 Subjective He feels much better today. He states that he is able to lay completely flat without orthopnea. He is able to ambulate to the bedside commode without dyspnea. He states that this is the best that he has felt in some time. He denies chest pain, shortness of breath, syncope, near-syncope, palpitations, edema, or bleeding. Review of systems: As above. Physical Exam Physical Exam: Gen.: No acute distress. Alert and oriented. HEENT: Anicteric sclera. Neck: Thick neck. No appreciable JVD. No hepatic jugular reflux. Cardiac: PMI was nondisplaced. No ventricular heave. Regular. Normal S1-S2. No murmurs, rubs, or gallops. Pulmonary: Decreased breath sounds throughout, but otherwise clear to auscultation bilaterally. Abdomen: Soft, nontender, nondistended, with normoactive bowel sounds. No bruits noted. Extremities: 2+ radial pulses bilaterally. 2+ posterior tibialis pulses bilaterally. Trace bilateral lower extremity edema. No cyanosis. Psychiatric: Affect appears appropriate. Results & Data ([facility]) Vital Signs (Past 12 Hours) Vital Signs Temp Pulse Resp BP Pulse Ox 01/09/21 11:35 36.6 C 58 L 18 120/71 90 01/09/21 07:41 36.4 C L 75 16 118/73 95 01/09/21 03:34 37 C 87 18 106/69 95 Intake & Output 01/07/21 01/08/21 01/09/21 01/10/21 06:59 06:59 06:59 06:59 Intake Total 1024.534 / 1024.534 877.8 / 877.8 735 / 735 Output Total 1201 / 1201 3025 / 3025 1700 / 1700 Balance -176.466 / -176.466 -2147.2 / -2147.2 -965 / -965 Weight 218 lb 11.177 oz 209 lb 7.026 oz 208 lb 1.862 oz Laboratory Results Laboratory Results - last 24 hr 01/09/21 01/09/21 05:51 05:51 WBC 6.18 RBC 3.75 L Hgb 11.8 L Hct 36.2 L MCV 96.5 MCH 31.5 MCHC 32.6 RDW Std Deviation 54.5 H RDW Coeff of Tommy 15.5 H Plt Count 190 MPV 10.0 Immature Gran % (Auto) 0.0 Neut % (Auto) 67.0 Lymph % (Auto) 16.2 [place] % (Auto) 11.3 Eos % (Auto) 5.2 Baso % (Auto) 0.3 Neut # (Auto) 4.14 Lymph # (Auto) 1.00 L [place] # (Auto) 0.70 H Eos # (Auto) 0.32 Baso # (Auto) 0.02 Immature Gran # (Auto) 0.00 Sodium 136 Potassium 3.4 L Chloride 98 Carbon Dioxide 30 Anion Gap 8.0 BUN 32 H Creatinine 1.41 H Est Cr Clr Drug Dosing 47.4 Est GFR ( Amer) 53.8 Est GFR (Non-Af Amer) 46.4 BUN/Creatinine Ratio 22.4 H Glucose 116 H Calcium 8.9 Diagnostic Findings Telemetry personally reviewed: Sinus rhythm. No arrhythmia. Medications Administered Current Inpatient Medications Acetaminophen (Acetaminophen 325 Mg Tab) 650 mg PO Q4H PRN PRN Reason: Pain or Fever Stop: 02/04/21 12:54 Aspirin (Aspirin 81 Mg Ectab) 81 mg PO DAILY [facility] Stop: 02/05/21 08:59 Last Admin: 01/09/21 07:59 Dose: 81 mg Documented by: Atorvastatin Calcium (Atorvastatin 40 Mg Tab) 40 mg PO QAM [facility] Stop: 02/05/21 08:59 Last Admin: 01/09/21 07:59 Dose: 40 mg Documented by: Clopidogrel Bisulfate (Clopidogrel Bisulfate 75 Mg Tab) 75 mg PO DAILY [facility] Stop: 02/05/21 08:59 Last Admin: 01/09/21 08:00 Dose: 75 mg Documented by: Furosemide (Furosemide 40 Mg/4 Ml Vial) 80 mg IV BID17 [facility] Stop: 02/06/21 08:59 Last Admin: 01/09/21 08:00 Dose: 80 mg Documented by: Heparin Sodium (Porcine) (Heparin Sod 5,000 Unit/0.5 Ml Vial) 5,000 units SQ Q12 [facility] Stop: 02/06/21 20:59 Last Admin: 01/09/21 12:34 Dose: 5,000 units Documented by: Losartan Potassium (Losartan Potassium 25 Mg Tab) [facility] [place]: 02/06/21 11:59 Last Admin: 01/08/21 09:37 Dose: 25 mg Documented by: Multivitamins/Minerals (Cerovite Adv Formula Tab) 1 [facility] Stop: 02/05/21 08:59 Last Admin: 01/09/21 07:59 Dose: 1 tab Documented by: Nitroglycerin (Nitroglycerin Sl 0.4 Mg/Tab Tab) 0.4 mg SL UD PRN PRN Reason: Chest Pain Stop: 02/04/21 12:54 Ondansetron HCl (Ondansetron Inj 2 Mg/Ml 2 Ml Vial) 4 mg IV Q6H PRN PRN Reason: Nausea Stop: 02/04/21 12:54 Polyethylene Glycol (Polyethylene (Miralax) 17 Gm Pack) 17 gm PO DAILY PRN PRN Reason: Constipation Stop: 02/04/21 12:54 Last Admin: 01/07/21 20:58 Dose: 17 gm Documented by: Ranolazine (Ranolazine 500 Mg Er Tab) 500 mg PO BID [facility] Stop: 02/04/21 20:59 Last Admin: 01/09/21 07:59 Dose: 500 mg Documented by: PG Care Time/CCT Total # of Minutes Spent Total Time Spent with Patient: Total time spent is greater than 50% in coordination of care (as documented) at patient's floor/unit and/or counseling patient: Coding Level of Care Code 14287 Subseq Hosp Care Lvl 3 Diagnoses NSTEMI (non-ST elevated myocardial infarction) I21.4 Acute HFrEF (heart failure with reduced ejection fraction) I50.21 Cardiomyopathy I42.9 CAD (coronary artery disease) I25.10 S/P coronary artery stent placement Z95.5 Hypercholesteremia E78.00 Hypertension I10
[2021-01-10 06:14] LABS: Basophils # (auto) 0.02 K/uL (0-0.2); Basophils % (auto) 0.3 %; Hematocrit (blood only) 38.3 % (42-52); Hemoglobin 12.7 g/dL (14.0-18.0); Immature Granulocytes # (auto) 0.02 K/uL (0.00-0.02); Immature Granulocytes % (auto) 0.3 %; Lymphocytes # (auto) 1.16 K/uL (1.2-3.4); Lymphocytes % (auto) 19.3 %; Mean Corpuscular Hemoglobin 31.6 pg (25-34); Mean Corpuscular Hgb Conc 33.2 g/dL (32-36); Mean Corpuscular Volume 95.3 fL (80-100); Mean Platelet Volume 9.9 fL (7.4-10.4); Monocytes # (auto) 0.69 K/uL (0.11-0.59); Monocytes % (auto) 11.5 %; Neutrophils # (auto) 3.83 K/uL (1.4-6.5); Neutrophils % (auto) 63.6 %; Platelet Count 209 K/uL (130-400); RDW Coefficient of Variation 15.3 % (11.5-14.5); RDW Standard Deviation 53.1 fL (36.4-46.3); Red Blood Count 4.02 M/uL (4.7-6.1); White Blood Count 6.02 K/uL (4.8-10.8)
[2021-01-10 06:48] LABS: BUN Creatinine Ratio 22.2 (10-20); Calcium 8.7 mg/dl (8.5-10.1); Creatinine Clr Calc Pharmacy 51.1 ml/min; Est GFR (African American) 59.3 ml/min; Est GFR (Non-African American) 51.2 ml/min; Potassium 3.2 mmol/L (3.5-5.1)
--- NOTE | 2021-01-10 07:07 | Pre Anesthesia Assessment ---
Date of Service January 10, 2021 Pre Sedation Assessment Vital Signs Temp Pulse Pulse Resp BP Pulse Ox 01/10/21 05:51 91 H 01/10/21 03:22 36.8 C 60 18 117/63 91 01/09/21 23:32 36.7 C 88 18 116/65 90 01/09/21 20:10 36.7 C 74 18 107/57 L 91 01/09/21 14:46 36.7 C 70 18 130/71 92 01/09/21 11:35 36.6 C 58 L 18 120/71 90 01/09/21 07:41 36.4 C L 75 16 118/73 95 Cardiovascular + regular rate Respiratory normal respiratory effort, lungs clear to auscultation Pre-Sedation Airway Assessment Smoking Status: Former smoker Hx Sleep Apnea: No Short, Thick Neck: No Thyromental Distance: > or= 3.5 Finger Breadths Oral Cavity: + WNL Mallampati Class: III ASA: ASA3 NPO Status Date of Last Intake of Fluids: 01/09/21 Time of Last Intake of Fluids: 18:00 Date of Last Intake of Solid Food: 01/09/21 Time of Last Intake of Solid Foods: 18:00 Procedure Planning Contraindications for Sedation: none Current Medications Reviewed: Yes Notes The planned sedation has been discussed with the patient. Informed Consent was obtained. I have identified the patient, determined the appropriateness of sedation and have assessed the patient immediately prior to the procedure. All medicine(s) and interventions are by my order.
[2021-01-10] MEDS ORDERED: niCARdipine HCL INJ 2.5 MG/ML 10 ML AMP ONE (07:08)
[2021-01-10] MEDS ORDERED: HEPARIN (PORCINE) 1000 UNIT/ML 10 ML (CATH LAB USE ONLY) ONE (07:08)
[2021-01-10] MEDS ORDERED: NITROGLYCERIN/D5W 100MCG/ML 20ML SYR ONE (07:09)
[2021-01-10] MEDS ORDERED: MIDAZOLAM HCL 1 MG/ML 2ML VIAL ONE (07:09)
[2021-01-10] MEDS ORDERED: fentaNYL citrate 100 MCG/2 ML VIAL ONE (07:09)
--- NOTE | 2021-01-10 08:13 | Cardiac Catheterization ---
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 Clinical evaluation leading to the procedure CAD Presenation: Non STEMI Anginal Classification: CCS IV (in setting of acute CHF decompensation) Heart Failure: NYHA Class: CCS IV Standard Exercise Test: No Stress Echocardiogram: No Stress Testing w/SPECT MPI: No Cardiac CTA: No Coronary Anatomy Dominant: Right Diagnostic Physicians Name: Manolo Calvo MD Status: Elective Closure Device Percutaneous Entry Location: Radial Closure Device: Radial Band Recommendations: Management Recommendatons Cardiac Cath Procedure Full Procedure Date January 10, 2021 Pre-Procedure Diagnosis Pre-Procedure Diagnosis: Non STEMI, CHF and Cardiomyopathy AUC Score AUC Score: 9 Post-Procedure Diagnosis Post-Procedure Diagnosis: Severe CAD and Elevated Intracardiac Pressures Procedure(s) Performed Procedure(s) Performed: Coronary Angiography and Left Heart Cath [employer] Director Manolo Calvo MD Application Systems Administrator(s) Osiel Estimated Blood Loss Estimated Blood Loss: < 25 ml Medication(s) Medication(s): Heparin, Lidocaine 1%, Nicardipine and Versed Summary of Findings Procedures: 1. Coronary angiography 2. Left heart catheterization 3. Moderate sedation Indication: 80-year-old gentleman with acute heart failure with reduced EF, cardiomyopathy, NSTEMI, and a history of multivessel CAD with circumflex PCI. Coronary angiography: 1. Left main: Short and likely severely diseased into ostial circumflex. With 6 [place] JL 3.5 diagnostic catheter, there was ventricularization of the arterial waveform. 2. Left anterior descending: Ostial LAD 80%. Mid LAD 100%. Small caliber D1 ostial 80 to 90%. LAD fills via left to left collaterals and also faint right to left collaterals. 3. Circumflex: Large caliber vessel. Ostial circumflex 70 to 80%. Proximal circumflex stent patent. Very small OM1. Circumflex continues on distally as a very small caliber AV groove vessel. Large OM 2. Left to left collaterals. 4. Right coronary artery: Large and dominant. Diffuse luminal irregularities. Mid RCA diffuse 20 to 30%. Distal RCA calcified lesion of approximately 70%. Ostial large PL 40%. Ostial large PDA 40%. Mid PDA 80 to 90%. COY-3 flow. Left heart catheterization: 1. Left ventriculography was not performed. 2. No aortic stenosis. 3. Mildly elevated LVEDP; 18 mmHg. Moderate sedation: 1. Sedation start time: 7:16 AM 2. Sedation end time: 7:57 AM Procedural details: 1. Unable to pass J-tipped wire through the radial artery. Glidewire was successfully used to navigate into the ascending aorta. Impression: 1. Severe multivessel CAD including left main into ostial circumflex, RCA, PDA, and previously documented occluded LAD. 2. Patent proximal circumflex stent. 3. Mildly elevated left-sided filling pressure. 4. No aortic stenosis. Plan: 1. Recommend evaluation at CT surgery capable center to consider high risk PCI versus CABG. 2. Continue to optimize medical therapy for CHF and CAD. Hemodynamics Rest Ao:: 116/63 Final Ao: 123/63 LV: 110/7/18 Recommendations Recommendations: Management Recommendatons Specimens Specimens: None Radiation Exposure (mGy) 675 mGy. Fluoro time 6.3 min. Contrast (mls) 60 ml Procedural Complication(s) None Disposition PCU I attest to the content of the Intraoperative Record and any orders documented therein. Any exceptions are noted below. [facility] Card Cath Procedure Codes Cardiac Catheterization Procedure 1: Cardiovascular Cath Procedures: 11151 Coronaries and LHC (+/-LV) Moderate Sedation Procedure 1: Sedation/Anesthesia: 80962 Mod Sedation by the same physician;Init15 Min Child Age 5 & Up Procedure 2: Sedation/Anesthesia: 75065 Mod Sedation by the same physician; Ea [id number] Minutes Procedure 3: Sedation/Anesthesia: 20316 Mod Sedation by the same physician; Ea [id number] Minutes PG Care Time/CCT Total # of Minutes Spent Total Time Spent with Patient: Total time spent is greater than 50% in coordination of care (as documented) at patient's floor/unit and/or counseling patient:
--- NOTE | 2021-01-10 08:23 | Post Anesthesia Assessment ---
Date of Service January 10, 2021 Post Sedation Assessment Vital Signs Temp Pulse Pulse Resp BP Pulse Ox 01/10/21 08:10 58 L 16 113/80 96 01/10/21 05:51 91 H 01/10/21 03:22 36.8 C 60 18 117/63 91 01/09/21 23:32 36.7 C 88 18 116/65 90 01/09/21 20:10 36.7 C 74 18 107/57 L 91 01/09/21 14:46 36.7 C 70 18 130/71 92 01/09/21 11:35 36.6 C 58 L 18 120/71 90 Recovery Score Activity: Moves 4 extremities Respiration: Deep Breath/Cough Circulation: +/-20% PreAnes Value Consciousness: Fully Awake Oxygen Saturation: > 92% On Room Air Post Anesthesia Score: 10 Discharge Sedation Level of Care: Fast Track Phase II Post Sedation Plan On clinical assessment, the patient appears to have tolerated the sedation without complications. Patient is recovering as anticipated. Patient will continue to be monitored by nursing and may be discharged when sedation discharge criteria are met per below protocol. Upon Completions of procedure up to 15 minutes continue every 5 minute vital signs and the P.A.R. score; then discharge to a Phase I or Fast Track to Phase II per the following guidelines: * Discharge Patient to appropriate Phase II area if PAR is 8 or greater or return to pre- procedure baseline. The post - procedure orders will be as directed. * If PAR score is less than 8 or not return to pre-procedure baseline then patient will follow Phase I monitoring till PAR is reached for Phase II. The Phase I may be done in procedure room or may call to secure a Phase I area. * If naloxone or flumazenil are used for reversal, hold in Phase I for continued monitoring from when last reversal dose was given for a minimum of 60 minutes or longer pending the nurse and/or physician discretion of patient condition before discharge to Phase II. Please call the Sedation Physician to re-evaluate and complete post-note for discharge to Phase II area. Do NOT discharge from procedure sedation or Phase 1 until post- sedation evaluation note is complete by procedure /sedation MD Sedation Discharge Instructions to be given to the patient at discharge to home.
[2021-01-10] MEDS ORDERED: POTASSIUM CHLORIDE CRTAB 20 MEQ TABCR PO STA (08:36)
--- NOTE | 2021-01-10 08:44 | Cardiology Progress Note ---
Date of Service January 10, 2021 Assessment & Plan (1) NSTEMI (non-ST elevated myocardial infarction): (2) Acute HFrEF (heart failure with reduced ejection fraction): (3) Cardiomyopathy: (4) CAD (coronary artery disease): (5) S/P coronary artery stent placement: (6) Hypercholesteremia: (7) Hypertension: Plan: ASSESSMENT/PLAN: 1. NSTEMI: No angina since presentation, when he was in the setting of acute decompensated CHF. Peak troponin 4.66. Continue aspirin. Chronically on dual anti-platelet therapy. Multivessel CAD for which evaluation for CABG versus high-risk PCI is recommended. 2. Acute heart failure with reduced EF: Appears euvolemic on exam. Left- sided filling pressure is mildly elevated. Will resume Lasix orally in the form of 40 mg p.o. b.i.d.. Start spironolactone 25 mg daily. Replete potassium. Continue losartan. Anticipate initiating Entresto in place of losartan, likely tomorrow. Initiate metoprolol succinate 25 mg daily today. 3. CAD s/p circumflex PCI: No further angina. Adjust medical therapy as above. Evaluation at [place] [facility] for consideration of CABG versus high risk PCI. Continue aspirin. High-intensity statin therapy. LAD known to be occluded but fills distally via [id number] collaterals from the circumflex. 4. Ischemic Cardiomyopathy: Significant reduction in LV systolic function. Consider ICD for primary prevention if LV systolic function does not improve with revascularization and medical therapy. 5. Hypertension: Blood pressure well controlled. Adjusting heart failure medical therapy as above. 6. Dyslipidemia: Continue high-intensity statin therapy. 7. Disposition: Plan of care discussed with primary hospitalist, Dr. Berg. Follow-up with Dr. Angeles, primary can crimper, on discharge. Heart failure program on discharge. Consider cardiac rehab following revascularization. Admission and Anticipated Discharge Date Admission Date: January 05, 2021 Subjective He denies chest pain, shortness of breath, syncope, near-syncope, orthopnea, edema, or bleeding. He underwent cardiac catheterization today via right radial artery. He was found to have multivessel CAD. Review of systems: As above. Physical Exam Physical Exam: Gen.: No acute distress. Alert and oriented. HEENT: Anicteric sclera. Neck: Thick neck. No appreciable JVD. No hepatic jugular reflux. Cardiac: PMI was nondisplaced. No ventricular heave. Regular, with ectopy. Normal S1-S2. No murmurs, rubs, or gallops. Pulmonary: Decreased breath sounds throughout, but otherwise clear to auscultation bilaterally. Abdomen: Soft, nontender, nondistended, with normoactive bowel sounds. No bruits noted. Extremities: Rright radial artery with TR band in place. 2+ posterior tibialis pulses bilaterally. Trace bilateral lower extremity edema. No cyanosis. Psychiatric: Affect appears appropriate. Results & Data ([facility]) Vital Signs (Past 12 Hours) Vital Signs Temp Pulse Pulse Resp BP Pulse Ox 01/10/21 08:24 63 16 113/62 96 01/10/21 08:10 58 L 16 113/80 96 01/10/21 05:51 91 H 01/10/21 03:22 36.8 C 60 18 117/63 91 01/09/21 23:32 36.7 C 88 18 116/65 90 Intake & Output 01/08/21 01/09/21 01/10/21 01/11/21 06:59 06:59 06:59 06:59 Intake Total 877.8 / 877.8 735 / 735 120 / 120 Output Total 3025 / 3025 1700 / 1700 2200 / 2200 Balance -2147.2 / -2147.2 -965 / -965 -2080 / -2080 Weight 209 lb 7.026 oz 208 lb 1.862 oz 205 lb 11.06 oz Laboratory Results Laboratory Results - last 24 hr 01/10/21 01/10/21 05:59 05:59 WBC 6.02 RBC 4.02 L Hgb 12.7 L Hct 38.3 L MCV 95.3 MCH 31.6 MCHC 33.2 RDW Std Deviation 53.1 H RDW Coeff of Tommy 15.3 H Plt Count 209 MPV 9.9 Immature Gran % (Auto) 0.3 Neut % (Auto) 63.6 Lymph % (Auto) 19.3 Russell % (Auto) 11.5 Eos % (Auto) 5.0 Baso % (Auto) 0.3 Neut # (Auto) 3.83 Lymph # (Auto) 1.16 L Russell # (Auto) 0.69 H Eos # (Auto) 0.30 Baso # (Auto) 0.02 Immature Gran # (Auto) 0.02 Sodium 138 Potassium 3.2 L Chloride 98 Carbon Dioxide 29 Anion Gap 11.0 BUN 29 H Creatinine 1.30 Est Cr Clr Drug Dosing 51.1 Est GFR ( Amer) 59.3 Est GFR (Non-Af Amer) 51.2 BUN/Creatinine Ratio 22.2 H Glucose 127 H Calcium 8.7 Diagnostic Findings Coronary angiography: 1. Left main: Short and likely severely diseased into ostial circumflex. With 6 Gambian JL 3.5 diagnostic catheter, there was ventricularization of the arterial waveform. 2. Left anterior descending: Ostial LAD 80%. Mid LAD 100%. Small caliber D1 ostial 80 to 90%. LAD fills via left to left collaterals and also faint right to left collaterals. 3. Circumflex: Large caliber vessel. Ostial circumflex 70 to 80%. Proximal circumflex stent patent. Very small OM1. Circumflex continues on distally as a very small caliber AV groove vessel. Large OM 2. Left to left collaterals. 4. Right coronary artery: Large and dominant. Diffuse luminal irregularities. Mid RCA diffuse 20 to 30%. Distal RCA calcified lesion of approximately 70%. Ostial large PL 40%. Ostial large PDA 40%. Mid PDA 80 to 90%. COY-3 flow. Left heart catheterization: 1. Left ventriculography was not performed. 2. No aortic stenosis. 3. Mildly elevated LVEDP; 18 mmHg. Medications Administered Current Inpatient Medications Acetaminophen (Acetaminophen 325 Mg Tab) 650 mg PO Q4H PRN PRN Reason: Pain or Fever Stop: 02/04/21 12:54 Aspirin (Aspirin 81 Mg Ectab) 81 mg PO DAILY [facility] Stop: 02/05/21 08:59 Last Admin: 01/09/21 07:59 Dose: 81 mg Documented by: Atorvastatin Calcium (Atorvastatin 40 Mg Tab) 40 mg PO QAM ROSMERY Stop: 02/05/21 08:59 Last Admin: 01/09/21 07:59 Dose: 40 mg Documented by: Clopidogrel Bisulfate (Clopidogrel Bisulfate 75 Mg Tab) 75 mg PO DAILY ROSMERY Stop: 02/05/21 08:59 Last Admin: 01/09/21 08:00 Dose: 75 mg Documented by: Furosemide (Furosemide 40 Mg/4 Ml Vial) 80 mg IV BID17 [facility] Stop: 02/06/21 08:59 Last Admin: 01/09/21 08:00 Dose: 80 mg Documented by: Furosemide (Furosemide 40 Mg Tab) 40 mg PO BID17 [facility] Stop: 02/09/21 08:59 Heparin Sodium (Porcine) (Heparin Sod 5,000 Unit/0.5 Ml Vial) 5,000 units SQ Q12 ROSMERY Stop: 02/06/21 20:59 Last Admin: 01/09/21 21:37 Dose: 5,000 units Documented by: Losartan Potassium (Losartan Potassium 25 Mg Tab) 25 mg PO QAM [facility] Stop: 02/06/21 11:59 Last Admin: 01/08/21 09:37 Dose: 25 mg Documented by: Metoprolol Succinate (Metoprolol Succ 25mg Ext Rel Tab) 25 mg PO QAM [facility] Stop: 02/09/21 08:59 Multivitamins/Minerals (Cerovite Adv Formula Tab) [facility] [place] Stop: 02/05/21 08:59 Last Admin: 01/09/21 07:59 Dose: 1 tab Documented by: Nitroglycerin (Nitroglycerin Sl 0.4 Mg/Tab Tab) 0.4 mg SL UD PRN PRN Reason: Chest Pain Stop: 02/04/21 12:54 Ondansetron HCl (Ondansetron Inj 2 Mg/Ml 2 Ml Vial) 4 mg IV Q6H PRN PRN Reason: Nausea Stop: 02/04/21 12:54 Polyethylene Glycol (Polyethylene (Miralax) 17 Gm Pack) 17 gm PO DAILY PRN PRN Reason: Constipation Stop: 02/04/21 12:54 Last Admin: 01/07/21 20:58 Dose: 17 gm Documented by: Potassium Chloride (Potassium Chloride Crtab 20 Meq Tabcr) 40 meq PO NOW STA Stop: 01/10/21 08:37 Ranolazine (Ranolazine 500 Mg Er Tab) 500 mg PO BID [facility] Stop: 02/04/21 20:59 Last Admin: 01/09/21 21:37 Dose: 500 mg Documented by: Spironolactone (Spironolactone 25 Mg Tab) 25 mg PO QAM [facility] Stop: 02/09/21 08:59 PG Care Time/CCT Total # of Minutes Spent Total Time Spent with Patient: Total time spent is greater than 50% in coordination of care (as documented) at patient's floor/unit and/or counseling patient: Coding Level of Care Code 11973 Subseq Hosp Care Lvl 3 Diagnoses NSTEMI (non-ST elevated myocardial infarction) I21.4 Acute HFrEF (heart failure with reduced ejection fraction) I50.21 Cardiomyopathy I42.9 CAD (coronary artery disease) I25.10 S/P coronary artery stent placement Z95.5 Hypercholesteremia E78.00 Hypertension I10
[2021-01-10] MEDS: ATORVASTATIN 40 MG TAB PO SCH (09:23)
[2021-01-10] MEDS: CLOPIDOGREL BISULFATE 75 MG TAB PO SCH (09:23)
[2021-01-10] MEDS: ASPIRIN 81 MG ECTAB PO SCH (09:23)
[2021-01-10] MEDS: CEROVITE ADV FORMULA TAB PO SCH (09:24)
[2021-01-10] MEDS: FUROSEMIDE 40 MG TAB PO SCH ×2 (09:24→16:55)
[2021-01-10] MEDS: SPIRONOLACTONE 25 MG TAB PO SCH (09:24)
[2021-01-10] MEDS: RANOLAZINE 500 MG ER TAB PO SCH ×2 (09:24→20:46)
[2021-01-10] MEDS: METOPROLOL SUCC 25MG EXT REL TAB PO SCH (09:24)
--- NOTE | 2021-01-10 19:26 | Hospitalist Progress Note ---
Date of Service January 10, 2021 Assessment & Plan (1) NSTEMI (non-ST elevated myocardial infarction): Plan: Mr. Allen is a 80 yo male with a PMHx of CAD w/ PCI, rectus sheath hematoma embolization, HTN, HLD, and prostate cancer who presented to the ER for SOB. # NSTEMI - ER: Chest tightness. Peak troponin 4.6. Angina resolved. - EKG: nonspecific ST and T wave abnormality. - LDL 67 (August), LDL at goal, cont. home atorvastatin 40mg PO daily - TTE: EF 20-25%, significant wall motion abnormalities - Cath performed (01/07), stopped after right heart due to dyspnea and hypoxia - Left heart cath (01/10): Multivessel CAD, will need evaluation for CABG versus high-risk PCI after d/c - Cont. daily aspirin - cont. Metoprolol 25mg qAM - holding losartan, BP stable - nitro PRN # Acute Hypoxic Respiratory Failure sec to CHF - Decreased O2 Sat during heart cath (01/07) with dyspnea - ABG (01/07) mildly elevated bicarb, otherwise normal - Current O2 Sat 91 RA, stable # Acute Exacerbation of Chronic Systolic CHF - Echo: EF 20-25%, significant wall motion abnormalities - Monitor strict I&O (-521mL balance last 24 hours), daily weights, trend BMP - Cont. lasix 40mg PO BID - metoprolol. losartan on hold - started spironolactone 25mg - trend BMP # CAD -LCx SEBASTIAN, September 2015 -As above, cont. ASA, plavix, and ranexa # CKD - 3 -Following renal function while diuresing. -Creatinine 1.3, cont. lasix - trend BMP # Rectus sheath hematoma: - Recent history with repair after coughing spell. [place] [facility] [place] - No signs of bleeding # Hypertension: - Hold losartan, BP stable # Prostate cancer: -s/p prostatectomy 20 years ago but with detectable PSA. Under surveillance with urology. Previous on Lupron injections. VTE Prophylaxis: Heparin 5000u SQ BID Diet: heart healthy, low Na, Fluid restricted Code: DNI/DNR Disposition: PCU Admission and Anticipated Discharge Date Admission Date: January 05, 2021 Supervising Physician Co-Signing Physician Notes Resident Physician Supervision Note: (Date of service 01/09/2021) I independently interviewed and examined the patient and verified the gregory history and physical, reviewed labs and image studies and agree with resident Dr. Madsen findings and care plan. Subjective No overnight events. Laying comfortably in bed without oxygen. Had cath this morning. No acute complaints. Review of Systems Constitutional: no fever, no chills and no fatigue Respiratory: no cough and no dyspnea (mild) Cardiovascular: no chest pain and no palpitations Gastrointestinal: no abdominal pain Physical Exam Constitutional: WD/WN, vitals as above + obese Eyes: PERRL, conjunctivae normal, anicteric sclerae ENMT: external ear and nose normal, oropharynx normal Neck: trachea midline, no thyromegaly Respiratory: normal respiratory effort, lungs clear to auscultation normal respiratory effort; no labored breathing and not tachypneic Auscultation: no crackles and no rales Cardiovascular: RRR, no murmur, no edema Gastrointestinal (Abdomen): normal bowel sounds, soft, nontender, no hepatosplenomegaly Psychiatric: A+Ox3, euthymic affect Results & Data Results & Data ([facility]) Vital Signs (Past 12 Hours) Vital Signs Temp Pulse Resp BP BP Pulse Ox 01/10/21 15:31 36.5 C 75 16 117/69 91 01/10/21 13:39 84 20 130/71 91 01/10/21 12:39 69 20 125/54 L 91 01/10/21 11:39 36.3 C L 64 18 121/65 91 01/10/21 10:39 55 L 18 103/43 L 91 01/10/21 09:39 70 18 146/69 H 92 01/10/21 09:09 82 18 125/58 L 90 01/10/21 08:24 63 16 113/62 96 01/10/21 08:10 58 L 16 113/80 96 Resident Activity Tracking Resident Involvement: Resident Care Provided Care Provided: Adult Hospital Medicine
[2021-01-10] MEDS: HEPARIN SOD 5,000 UNIT/0.5 ML VIAL SQ SCH (20:46)
[2021-01-11 07:33] LABS: Basophils # (auto) 0.02 K/uL (0-0.2); Basophils % (auto) 0.3 %; Eosinophils # (auto) 0.39 K/uL (0-0.5); Eosinophils % (auto) 6.3 %; Hematocrit (blood only) 37.6 % (42-52); Hemoglobin 12.8 g/dL (14.0-18.0); Immature Granulocytes # (auto) 0.01 K/uL (0.00-0.02); Immature Granulocytes % (auto) 0.2 %; Lymphocytes % (auto) 22.6 %; Mean Corpuscular Hemoglobin 32.2 pg (25-34); Mean Corpuscular Volume 94.7 fL (80-100); Mean Platelet Volume 9.9 fL (7.4-10.4); Monocytes # (auto) 0.66 K/uL (0.11-0.59); Monocytes % (auto) 10.7 %; Neutrophils # (auto) 3.71 K/uL (1.4-6.5); Neutrophils % (auto) 59.9 %; Platelet Count 207 K/uL (130-400); RDW Coefficient of Variation 15.1 % (11.5-14.5); RDW Standard Deviation 52.8 fL (36.4-46.3); Red Blood Count 3.97 M/uL (4.7-6.1); White Blood Count 6.19 K/uL (4.8-10.8)
[2021-01-11 08:26] LABS: Calcium 9.1 mg/dl (8.5-10.1); Est GFR (African American) 64.7 ml/min; Est GFR (Non-African American) 55.8 ml/min; Potassium 3.7 mmol/L (3.5-5.1)
[2021-01-11] MEDS: FUROSEMIDE 40 MG TAB PO SCH (08:28)
[2021-01-11] MEDS: CLOPIDOGREL BISULFATE 75 MG TAB PO SCH (08:28)
[2021-01-11] MEDS: ATORVASTATIN 40 MG TAB PO SCH (08:28)
[2021-01-11] MEDS: CEROVITE ADV FORMULA TAB PO SCH (08:28)
[2021-01-11] MEDS: METOPROLOL SUCC 25MG EXT REL TAB PO SCH (08:29)
[2021-01-11] MEDS: RANOLAZINE 500 MG ER TAB PO SCH (08:29)
[2021-01-11] MEDS: ASPIRIN 81 MG ECTAB PO SCH (08:29)
[2021-01-11] MEDS: SPIRONOLACTONE 25 MG TAB PO SCH (08:29)
[2021-01-11] MEDS: LOSARTAN POTASSIUM 25 MG TAB PO SCH (11:33)
[2021-01-11] MEDS: HEPARIN SOD 5,000 UNIT/0.5 ML VIAL SQ SCH (11:33)
--- NOTE | 2021-01-11 14:11 | Cardiology Progress Note ---
Date of Service January 11, 2021 Assessment & Plan (1) NSTEMI (non-ST elevated myocardial infarction): (2) Acute HFrEF (heart failure with reduced ejection fraction): (3) Cardiomyopathy: (4) CAD (coronary artery disease): (5) S/P coronary artery stent placement: (6) Hypercholesteremia: (7) Hypertension: Plan: ASSESSMENT/PLAN: 1. NSTEMI: No angina since presentation, when he was in the setting of acute decompensated CHF. Peak troponin 4.66. Continue aspirin. Chronically on dual anti-platelet therapy. Multivessel CAD for which evaluation for CABG versus high-risk PCI is recommended. 2. Acute heart failure with reduced EF: Appears euvolemic on exam. Left- sided filling pressure is mildly elevated. Continue Lasix 40 mg p.o. b.i.d. with spironolactone 25 mg daily. Replete potassium. Losartan had been on hold- restarted this am. BP adequate. Anticipate initiating Entresto in place of losartan- will plan to transition as outpatient. Continue metoprolol succinate 25 mg daily today. 3. CAD s/p circumflex PCI: No further angina. Adjust medical therapy as above. Evaluation at [place] [facility] for consideration of CABG versus high risk PCI. Continue aspirin. High-intensity statin therapy. LAD known to be occluded but fills distally via [id number] collaterals from the circumflex. 4. Ischemic Cardiomyopathy: Significant reduction in LV systolic function. GDMT as above. Consider ICD for primary prevention if LV systolic function does not improve with revascularization and medical therapy. 5. Hypertension: Blood pressure well controlled. Adjusting heart failure medical therapy as above. 6. Dyslipidemia: Continue high-intensity statin therapy. 7. Disposition: Plan of care discussed with primary hospitalist, Dr. Berg. Follow-up with Dr. Angeles, primary engineering administrator, on discharge. Heart failure program on discharge- 01/16/21 10:30am. Consider cardiac rehab following revascularization. Planning for discharge today. Plan discussed with Dr. Madsen. Admission and Anticipated Discharge Date Admission Date: January 05, 2021 Subjective Patient reports he's feeling improved today. He's anxious for discharge. He admits to significant urine output since yesterday. His breathing is improving. He's tolerating room air. He is lying comfortably with his head slightly el evated at the time of my visit. He denies cough, chest pain, palpitations. He is stable on PO diuretics. Total net -6L for the admission. Weight is trending down to 205 lb. Kidney function and electrolytes stable on Lasix 40 mg BID. Physical Exam Physical Exam: Gen.: No acute distress. Alert and oriented. HEENT: Anicteric sclera. Neck: Thick neck. Cardiac: PMI was nondisplaced. No ventricular heave. Regular. Normal S1-S2. No murmurs, rubs, or gallops. Pulmonary: Normal respiratory effort. Clear to ausculation. Abdomen: Soft, nontender, nondistended, with normoactive bowel sounds. No bruits noted. Extremities: 2+ radial pulses bilaterally. 2+ posterior tibialis pulses bilaterally. Trace bilateral lower extremity edema. No cyanosis. Psychiatric: Affect appears appropriate. Results & Data ([facility]) Vital Signs (Past 12 Hours) Vital Signs Temp Pulse Pulse Resp BP BP Pulse Ox 01/11/21 13:03 78 01/11/21 11:32 97.7 F 71 18 108/69 94 01/11/21 07:54 97.9 F 60 17 118/71 92 01/11/21 03:43 97.9 F 60 18 104/70 91 PG Care Time/CCT Total # of Minutes Spent Total Time Spent with Patient: Total time spent is greater than 50% in coordination of care (as documented) at patient's floor/unit and/or counseling patient: Coding Level of Care Code 41452 Subseq Hosp Care Lvl 3 Diagnoses NSTEMI (non-ST elevated myocardial infarction) I21.4 Acute HFrEF (heart failure with reduced ejection fraction) I50.21 Cardiomyopathy I42.9 CAD (coronary artery disease) I25.10 S/P coronary artery stent placement Z95.5 Hypercholesteremia E78.00 Hypertension I10 Heart Failure Data/Metrics Heart Failure Type: Systolic Ejection Fraction: 25-30% Evidenced Based Beta Jasiel Therapy Beta Jasiel Therapy: Yes Beta Jasiel Name: Metoprolol Succinate Beta Jasiel Target Therapy: Not at Target Therapy GYPSY/ARB/ARNI Therapy GYPSY/ARB/ARNI Therapy: Yes GYPSY/ARB/ARNI Name: Losartan GYPSY/ARB/ARNI Target Therapy: Not at Target Therapy Aldosterone Antagonist Therapy Aldosterone Antagonist Therapy: Yes
--- NOTE | 2021-01-11 17:57 | Discharge Summary ---
Date of Service January 11, 2021 Admission HPI Per Admitting Provider Percy Allen is an 80 year old male with history of coronary artery disease s/p SEBASTIAN LCx 2016 who presents to the ER with shortness of breath. He reports ongoing shortness of breath since he was discharged from [place] after rectus sheath hematoma in mid November. However getting much worse over the last week. This morning around 4-5am he had sudden worsening shortness of breath where he felt like he was going to take his last breath. Associated had chest tightness at the same time, no radiation, no severity as he doesn't describe it as a pain. No orthopnea, PND, palpitations, claudication or leg swelling. In the ER CXR showing pulmonary edema, troponin elevated at 1.85ng/ml. d-dimer was positive however CT for PE negative for pulmonary embolus. He was referred to medicine for admission and ongoing management of NSTEMI. Principal Diagnosis Multivessel CAD Discharge Exam Constitutional WD/WN, vitals as above + obese Eyes PERRL, conjunctivae normal, anicteric sclerae ENMT external ear and nose normal, oropharynx normal Neck trachea midline, no thyromegaly Respiratory normal respiratory effort, lungs clear to auscultation normal respiratory effort; no labored breathing and not tachypneic Auscultation: no crackles and no rales Cardiovascular RRR, no murmur, no edema Gastrointestinal (Abdomen) normal bowel sounds, soft, nontender, no hepatosplenomegaly Psychiatric A+Ox3, euthymic affect Discharge Data Allergies Allergy/AdvReac Type Severity Reaction Status Date / Time No Known Drug Allergies Allergy Verified 12/19/20 10:40 Consultations 01/05/21 09:42 ED Decision to Admit Stat 01/05/21 11:02 Consult Cardiology Routine 01/06/21 14:11 [facility] [place] Procedures Performed Operation Date: 01/07/21 07:00 Actual Procedures s Cineradiography w/Routine Exam - Manolo Calvo MD p Right Heart Cath Only - Manolo Calvo MD Operation Date: 01/10/21 07:00 Actual Procedures p Cath, Left with Cors and Vent - Manolo Calvo MD s Cineradiography w/Routine Exam - Manolo Calvo MD Ordered Studies 01/05/21 09:16 CT angio chest PE protocol Stat 01/07/21 06:41 CL Cath Imgs for PACS use only Routine 01/10/21 06:46 CL Cath Imgs for PACS use only Routine Hospital Course (1) NSTEMI (non-ST elevated myocardial infarction): Mr. Aleln is a 80 yo male with a PMHx of CAD w/ PCI, rectus sheath hematoma embolization, HTN, HLD, and prostate cancer who presented to the ER for SOB. # NSTEMI - ER: Chest tightness. Peak troponin 4.6. Angina resolved. - EKG: nonspecific ST and T wave abnormality. - LDL 67 (August), LDL at goal, cont. home atorvastatin 40mg PO daily - TTE: EF 20-25%, significant wall motion abnormalities - Cath performed (01/07), stopped after right heart due to dyspnea and hypoxia (see below) - Left heart cath (01/10): Multivessel CAD, will need evaluation for CABG versus high-risk PCI after d/c - Cont. daily aspirin, metoprolol, losartan - f/u cardiology # Multivessel CAD -LCx SEBASTIAN, September 2015 -Cath (01/10): Multivessel disease -further evaluation for CABG versus high-risk PCI after d/c -cont. ASA, plavix, and ranexa, metoprolol and losartan # Acute Hypoxic Respiratory Failure sec to CHF - Decreased O2 Sat during heart cath (01/07) with dyspnea - ABG (01/07) mildly elevated bicarb, otherwise normal - O2 Sat 94 RA at discharge # Acute Exacerbation of Chronic Systolic CHF - Echo: EF 20-25%, significant wall motion abnormalities - Diuresed neg 5L on discharge. - Transitioned to oral lasix on discharge - Cont. lasix 40mg PO BID - Added spironolactone 25mg qAM - Cont. losartan, metoprolol - Cr 1.21 (01/11) # CKD - 3 - Cr 1.21 (01/11), # Rectus sheath hematoma: - Recent history with repair after coughing spell. Had embolization of interior epigastric artery @ [facility] [place] on [place]. - No signs of bleeding # Hypertension: - Cont. losartan, metoprolol - BP stable # Prostate cancer: -s/p prostatectomy 20 years ago but with detectable PSA. Under surveillance with urology. Previous on Lupron injections. VTE Prophylaxis: Heparin 5000u SQ BID Diet: heart healthy, low Na, Fluid restricted Code: DNI/DNR Disposition: Home health Total Time Total Time Spent Total Time Spent (In Minutes): 30 Discharge Plan Discharge Items Patient Disposition: Home - Home Health Services Reason For Visit: NSTEMI Discharge Diagnosis: Multivessel CAD Activity: Per Instructions section Non-emergency contact: Primary Care Provider Call non-emergency contact if: you have any medication questions and your symptoms worsen Follow-up/Referrals: Cristobal Angeles MD [Primary Care Provider] - Lisa Boone PA-C [Physician Horse Exerciser] - 01/16/21 10:30 am (Congestive Heart Failure Program Appointment Information Early follow up is essential to managing your heart failure. An appointment has been scheduled for you with the [facility] Heart Failure Program within 7 days of discharge. Anticipate this visit to be 30-60 minutes long. Please expect a plumber cub phone call from one of our nurses approximately 48 hours from discharge. They will also be placing an order for lab work to be completed 1-2 days prior to your heart failure follow up appointment. Please be sure to have this done so we can go over the results when you come in. Office Location The cardiology office building is located in front of the hospital at [address] Bring the following with you to your follow-up doctor appointments: Please bring your daily weight log any discharge paperwork all of your medication bottles with you to this visit. ) Diet: Heart Healthy and Low Sodium (2gm) Addtl Attending Provider Instructions: ACTIVITY RECOMMENDATIONS: Excess manipulation of the wrist should be avoided for the next 24-48 hours. * No lifting over 2 pounds (approximately a 1/2 gallon of milk) with the utilized arm for 24 hours. * No strenuous activity such as bowling or tennis for 3 days. * Keep the site of the procedure covered with a bandage for 24 hours. *You may shower the day after the procedure. Do not take a tub bath or submerge the puncture site in water for the next 3 days. *Do not operate any motorized equipment for 3 days. SPECIAL CARE INSTRUCTIONS: The site may be slightly bruised and sore following your procedure. Should any of the following occur, contact the DrRay who performed your procedure. 1. Redness/inflammation, swelling, chills, or fever, or colored drainage at procedure site within 3-7 days after your procedure. 2. Coldness, discoloration, ongoing numbness, severe pain, or swelling. Expect mild tingling of hand and tenderness at the puncture site for up to three days. If this persists beyond three days, or other symptoms develop, notify the Dr. who performed your procedure. BLEEDING: If the procedure site on your wrist begins to bleed, do not panic 1. Place 1 or 2 fingers firmly just slightly above the insertion site to stop the bleeding. You may be able to feel your pulse as you hold pressure. 2. Lift your finger after 5 minutes to see if the bleeding has stopped. 3. Once the bleeding has stopped, gently wipe the wrist area clean with a bandage. * If the bleeding from your wrist does not stop after 10 minutes, or if there is a large amount of bleeding or spurting, call 911 (do not drive yourself to the hospital). SKIN IRRITATION: * You may experience some redness and/or swelling in the area where radiation was administered. If any skin irritation occurs, please contact your family physician. FOLLOW UP VISIT: 1. Recommend appointment with CT surgery or interventional cardiology at [facility] to evaluate for CABG vs stenting of coronary artery disease. 2. Dr. Angeles in 1-2 weeks. 3. Heart failure program within 1 week. 4. Keep any scheduled doctor appointments. Medication Changes: - Take losartan 25mg PO daily - Take spironolactone 25mg PO daily - Take furosemide (lasix) 40mg PO two times each day, 12 hours apart - Take metoprolol succinate 25mg PO daily *Sent to [facility] [employer] Provider Instructions: Call your Primary Care doctor if any of the following symptoms or problems start or get worse: * Shortness of breath or difficulty breathing * Wake up at night short of breath * Chest pain * Cough * Swelling of your hands, feet, or legs * More fatigued or tired with your normal activity * Palpitations - sudden fast heart beats WEIGHT * Weigh yourself every morning after using the bathroom. * Use the same scale. * Wear the same amount of clothing. * Write your weight down on a chart. * Call your Primary Care doctor if you gain more than 2-3 pounds in 1-2 days. MEDICATIONS * Use this discharge instruction sheet for medication instructions. * Take your medications at the time your doctor ordered. * Do not skip a dose of your medicines. * If you miss a dose of medicine, take it as soon as possible, but DO NOT DOUBLE A DOSE. * Read your medicine information when you get home. * Know all of the side effects of your medicine. If in doubt, ask your pharmacist * Call your Primary Care doctor's office if you have any side effects. * Be sure all of your doctors know what medicine and herbs you take (including cold, flu, and herbal medicine). Take the following with you to your follow-up doctor appointments: * Weight Chart * Medication List * List of questions Do not drink excessive alcohol, beer or wine. Pending Studies at Discharge: No Stand-Alone Forms: [facility], Smoking Cessation Medications and DC Order Prescriptions: New metoprolol succinate 25 mg tablet extended release 24 hr 25 mg PO DAILY Qty: 30 RF: 0 losartan 25 mg tablet 25 mg PO DAILY Qty: 30 RF: 0 spironolactone 25 mg tablet 25 mg PO DAILY Qty: 30 RF: 0 furosemide [Lasix] 40 mg tablet 40 mg PO BID Qty: 60 RF: 0 Continued ranolazine [Ranexa] 500 mg tablet extended release 12 hr 500 mg PO BID Qty: 180 RF: 3 ICaps [id number] Tablet Extended Release 1 tab PO QAM RF: 0 Glucos Chond Cplx Advanced 750 mg-100 mg- 125 mg-1.65 mg tablet 4 tab PO QAM RF: 0 atorvastatin [Lipitor] 40 mg tablet 40 mg PO QAM RF: 0 clopidogrel 75 mg tablet 75 mg PO DAILY RF: 0 aspirin [Aspirin Low Dose] 81 mg Tablet,Delayed Release (Dr/Ec) 81 mg PO DAILY RF: 0 Discontinued losartan 50 mg tablet 50 mg PO QAM Qty: 90 RF: 3 ibuprofen [Advil] 200 mg Tablet 200 mg PO Q6H PRN (Reason: Pain) RF: 0 Discharge Orders: Discharge Order (Routine); Ordered 01/11/21 Ordered By: Seth Madsen Admission Data Admit Date/Time: 01/05/21 11:05 Attending Provider: Ritika Berg Admit Provider: Bucky Silva Primary Care Provider: Cristobal Angeles Other Providers: Bucky Silva ; Manolo Calvo ; Lisa Boone Other Interventions: Discharge Summary Assessment (RN) Last Done: 01/11/21 15:01 Supervising Physician Co-Signing Physician Notes Resident Physician Supervision Note: I independently interviewed and examined the patient and verified the gregory history and physical, reviewed labs and image studies and agree with resident Dr. Madsen findings and care plan. Resident Activity Tracking Resident Involvement: Resident Care Provided Care Provided: Adult [facility]
== END 2021-01-11 15:20 | disposition home or self-care (01) | DRG 280 ==
LOC: ED 07:52 → SUATTDRO 11:05 → EDINP 11:05 → 2S 20:51
PROC: CLB.CRH (2021-01-07 07:00)